=== PATIENT | male | born 1960 | race Caucasian/White ===

== ENCOUNTER 2017-03-17 18:14 | Emergency (ER) | payer BC ==
[2017-03-17 19:15] VITALS: RESP 16
[2017-03-17] MEDS: ASPIRIN 81 MG CHEW PO STA ×2 (19:19→19:23)
[2017-03-17 19:21] LABS: Basophils # (A) 0.1 k/uL (0-0.2); Basophils % (A) 1 %; CHCM 33.6; Eosinophils # (A) 0.2 k/uL (0-0.7); Eosinophils % (A) 2 %; HCT 47.9 % (39.0-53.0); HDW 2.25; HGB 15.6 gm/dL (13.0-17.5); Luc # (Auto) 0.35; Luc % (Auto) 4; Lymphocytes # (A) 4.2 k/uL (1.0-4.8); Lymphocytes % (A) 43 %; MCH 30.1 pg (25.0-35.0); MCHC 32.5 g/dL (31.0-37.0); MCV 92.7 fL (80.0-100.0); Mean Platelet Volume 7.8; Monocytes # (A) 0.6 k/uL (0-1.0); Monocytes % (A) 6 %; Neutrophils # (A) 4.3 k/uL (1.3-7.7); Neutrophils % (A) 45 %; RBC 5.17 m/uL (4.30-5.90); RDW 13.1 % (11.5-15.5); WBC 9.7 k/uL (3.8-10.6); WBC (Perox) 9.33
[2017-03-17 19:25] LABS: ALT 39 U/L (21-72); AST 29 U/L (17-59); Alkaline Phosphatase 94 U/L (38-126); Anion Gap 12 mmol/L; Blood Urea Nitrogen 23 mg/dL (9-20); Calcium 9.8 mg/dL (8.4-10.2); Carbon Dioxide 24 mmol/L (22-30); Chloride 99 mmol/L (98-107); Glucose 95 mg/dL (74-99); Magnesium 2.1 mg/dL (1.6-2.3); Non-African American GFR(MDRD) >60 (>60 ml/min/1.73 sqM); Potassium 4.6 mmol/L (3.5-5.1); Sodium 135 mmol/L (137-145); Total Bilirubin 1.4 mg/dL (0.2-1.3); Total Protein 7.8 g/dL (6.3-8.2)
--- NOTE | 2017-03-17 19:28 | ED ---
Arrhythmia/Palpitations HPI - General Chief Complaint: Arrhythmia/Palpitations Stated Complaint: irregular heartbeat Time Seen by Provider: 03/17/17 18:32 Source: patient Mode of arrival: ambulatory Limitations: no limitations - History of Present Illness Initial Comments: Patient is a 56-year-old man who states that he has history of cardiomyopathy, previous congestive heart failure, and previous SVT, who states that just before coming here he was doing yoga and noticed that his heart began racing. States that he measured the rate at up to 160 bpm. He states that he was not having any other symptoms associated with this. He denied dyspnea, diaphoresis , chest pain, nausea or vomiting, lightheadedness or syncope. The patient states that when he does have this happen the symptoms usually last less than a minute, and that when this episode persisted he came here to be evaluated. The patient takes his cardiology care through the [facility], Dr. Aaronson. CONWAY Complaint: rapid heart beat -: minutes(s) Context: occurred during exertion Arrhythmia History: SVT Associated Symptoms: denies other symptoms - Related Data Home Medications Medication Instructions Recorded Confirmed Carvedilol [Coreg] 25 mg PO BID 03/17/17 03/17/17 Enalapril Maleate [Vasotec] 10 mg PO BID 03/17/17 03/17/17 Multivitamins, Thera [Multivitamin 1 tab PO DAILY 03/17/17 03/17/17 (formulary)] Naproxen Sodium [Aleve] 440 mg PO ONCE PRN 03/17/17 03/17/17 Allergies Allergy/AdvReac Type Severity Reaction Status Date / Time No Known Allergies Allergy Verified 03/17/17 18:46 Review of Systems ROS Statement: Those systems with pertinent positive or pertinent negative responses have been documented in the HPI. ROS Other: All systems not noted in ROS Statement are negative. Constitutional: Denies: fever, chills, weakness Respiratory: Denies: cough, dyspnea Cardiovascular: Reports: palpitations. Denies: chest pain, dyspnea on exertion , orthopnea, edema, syncope Gastrointestinal: Denies: abdominal pain, vomiting, diarrhea Musculoskeletal: Denies: back pain Skin: Denies: rash Neurological: Denies: headache, weakness, numbness Hematological/Lymphatic: Denies: easy bleeding Past Medical History Past Medical History: Heart Failure, Hypertension Additional Past Medical History / Comment(s): arrhythmia History of Any Multi-Drug Resistant Organisms: None Reported Past Surgical History: No Surgical Hx Reported Past Psychological History: Anxiety Smoking Status: Never smoker Past Alcohol Use History: None Reported Past Drug Use History: None Reported General Exam Limitations: no limitations General appearance: alert, in no apparent distress Head exam: Present: atraumatic, normocephalic Eye exam: Present: normal appearance. Absent: scleral icterus, conjunctival injection ENT exam: Present: normal oropharynx Neck exam: Present: normal inspection, full ROM Respiratory exam: Present: normal lung sounds bilaterally. Absent: respiratory distress, wheezes, rales, rhonchi, stridor Cardiovascular Exam: Present: regular rate (The heart rate at my exam is proximal to 72 bpm), normal rhythm, normal heart sounds. Absent: systolic murmur, diastolic murmur, rubs, gallop GI/Abdominal exam: Present: soft. Absent: distended, tenderness, guarding, rebound, mass Extremities exam: Present: normal inspection, normal capillary refill. Absent: pedal edema, calf tenderness Back exam: Present: normal inspection. Absent: CVA tenderness (R), CVA tenderness (L) Neurological exam: Present: alert Skin exam: Present: warm, dry, intact, normal color. Absent: rash Course Vital Signs 03/17/17 03/17/17 03/17/17 18:20 18:22 18:24 Temperature 96.9 F L Pulse Rate 155 H 93 Pulse Rate [ 155 H Outpatient Coder ] Respiratory 18 Rate Blood Pressure 135/103 O2 Sat by Pulse 100 Oximetry 03/17/17 03/17/17 03/17/17 18:34 18:55 20:07 Temperature Pulse Rate 74 70 62 Pulse Rate [ Outpatient Coder ] Respiratory 18 16 16 Rate Blood Pressure 144/96 132/87 142/84 O2 Sat by Pulse 96 97 94 L Oximetry EKG Findings - EKG Comments: EKG Findings:: SVT with a rate of approximately 155 bpm there is a PVC present. - EKG Results: EKG: interpreted by LESLIE, normal axis, normal QRS EKG shows: tachycardia - Blocks, [place], Hypertrophy, ST Abn: Repolarization changes or abnormalities: nonspecific abnormality, ST segment, and/or T wave Medical Decision Making - Medical Decision Making Patient had a repeat EKG when his rhythm spontaneously reverted to what appear to be sinus. The second EKG does show sinus rhythm with occasional PVCs the rate is approximately 90 bpm. The intervals are within normal limits. [place] is normal. Nonspecific T wave abnormality. Patient reevaluated following lab studies. He is requesting to go home. He has not had any symptoms. We discussed the risk of further arrhythmia and the benefits of monitoring overnight. At this point he would like to go home and will return for admission should any symptoms develop or the palpitations recur. Patient is going to follow-up with his metallurgical analyst, calling for an appointment tomorrow. - Lab Data Result diagrams: 03/17/17 18:34 03/17/17 18:34 Lab Results 03/17/17 03/17/17 03/17/17 Range/Units 18:34 18:34 18:34 WBC 9.7 (3.8-10.6) k/uL RBC 5.17 (4.30-5.90) m/uL Hgb 15.6 (13.0-17.5) gm/dL Hct 47.9 (39.0-53.0) % MCV 92.7 (80.0-100.0) fL MCH 30.1 (25.0-35.0) pg MCHC 32.5 (31.0-37.0) g/dL RDW 13.1 (11.5-15.5) % Plt Count 188 (150-450) k/uL Neutrophils % 45 % Lymphocytes % 43 % Monocytes % 6 % Eosinophils % 2 % Basophils % 1 % Neutrophils # 4.3 (1.3-7.7) k/uL Lymphocytes # 4.2 (1.0-4.8) k/uL Monocytes # 0.6 (0-1.0) k/uL Eosinophils # 0.2 (0-0.7) k/uL Basophils # 0.1 (0-0.2) k/uL PT (9.0-12.0) sec INR (<1.1) APTT (22.0-30.0) sec D-Dimer (<0.60) mg/L FEU Sodium 135 L (137-145) mmol/L Potassium 4.6 (3.5-5.1) mmol/L Chloride 99 (98-107) mmol/L Carbon Dioxide 24 (22-30) mmol/L Anion Gap 12 mmol/L BUN 23 H (9-20) mg/dL Creatinine 1.16 (0.66-1.25) mg/dL Est GFR (MDRD) Af Amer >60 (>60 ml/min/1.73 sqM) Est GFR (MDRD) Non-Af >60 (>60 ml/min/1.73 sqM) Glucose 95 (74-99) mg/dL Calcium 9.8 (8.4-10.2) mg/dL Magnesium 2.1 (1.6-2.3) mg/dL Total Bilirubin 1.4 H (0.2-1.3) mg/dL AST 29 (17-59) U/L ALT 39 (21-72) U/L Alkaline Phosphatase 94 (38-126) U/L Total Creatine Kinase 151 (55-170) U/L CK-MB (CK-2) 3.6 H* (0.0-2.4) ng/mL CK-MB (CK-2) Rel Index 2.4 Troponin I 0.013 (0.000-0.034) ng/mL Total Protein 7.8 (6.3-8.2) g/dL Albumin 4.8 (3.5-5.0) g/dL TSH 3.940 (0.465-4.680) mIU/L 03/17/17 Range/Units 18:34 WBC (3.8-10.6) k/uL RBC (4.30-5.90) m/uL Hgb (13.0-17.5) gm/dL Hct (39.0-53.0) % MCV (80.0-100.0) fL MCH (25.0-35.0) pg MCHC (31.0-37.0) g/dL RDW (11.5-15.5) % Plt Count (150-450) k/uL Neutrophils % % Lymphocytes % % Monocytes % % Eosinophils % % Basophils % % Neutrophils # (1.3-7.7) k/uL Lymphocytes # (1.0-4.8) k/uL Monocytes # (0-1.0) k/uL Eosinophils # (0-0.7) k/uL Basophils # (0-0.2) k/uL PT 10.9 (9.0-12.0) sec INR 1.1 (<1.1) APTT 24.2 (22.0-30.0) sec D-Dimer 0.36 (<0.60) mg/L FEU Sodium (137-145) mmol/L Potassium (3.5-5.1) mmol/L Chloride (98-107) mmol/L Carbon Dioxide (22-30) mmol/L Anion Gap mmol/L BUN (9-20) mg/dL Creatinine (0.66-1.25) mg/dL Est GFR (MDRD) Af Amer (>60 ml/min/1.73 sqM) Est GFR (MDRD) Non-Af (>60 ml/min/1.73 sqM) Glucose (74-99) mg/dL Calcium (8.4-10.2) mg/dL Magnesium (1.6-2.3) mg/dL Total Bilirubin (0.2-1.3) mg/dL AST (17-59) U/L ALT (21-72) U/L Alkaline Phosphatase (38-126) U/L Total Creatine Kinase (55-170) U/L CK-MB (CK-2) (0.0-2.4) ng/mL CK-MB (CK-2) Rel Index Troponin I (0.000-0.034) ng/mL Total Protein (6.3-8.2) g/dL Albumin (3.5-5.0) g/dL TSH (0.465-4.680) mIU/L Disposition Clinical Impression: Supraventricular tachycardia Disposition: HOME SELF-CARE Condition: Good Instructions: Supraventricular Tachycardia (ED), Palpitations (ED) Referrals: Shubham Stephenson MD [Primary Care Provider] - 1-2 days
--- NOTE | 2017-03-17 19:45 | XR ---
EXAMINATION TYPE: XR chest 1V portable DATE OF EXAM: 03/17/2017 COMPARISON: 12/10/1711 HISTORY: Dysrhythmia TECHNIQUE: Single frontal view of the chest is obtained. FINDINGS: Heart appears enlarged. There is no heart failure. There are chest leads. Costophrenic ang les are clear. There are no hilar masses. IMPRESSION: Cardiomegaly. Heart appears slightly increased compared to old exam. No heart failure.
[2017-03-17 20:02] LABS: Troponin I 0.013 ng/mL (0.000-0.034)
[2017-03-17 20:06] LABS: Creatine Kinase MB 3.6 ng/mL (0.0-2.4); INR 1.1 (<1.1); Partial Thromboplastin Time 24.2 sec (22.0-30.0); Prothrombin Time 10.9 sec (9.0-12.0)
[2017-03-17 21:09] VITALS: BP 127/82; PULSE 66; TEMP 98.4
== END 2017-03-17 21:10 | disposition home or self-care (01) ==
LOC: EC 18:14
DX: I47.1 Supraventricular tachycardia (principal); I50.9 Heart failure, unspecified; I10 Essential (primary) hypertension; Z53.29 Procedure and treatment not carried out because of patient's decision for other reasons; Z79.899 Other long term (current) drug therapy
CPT/HCPCS: 36415; 71010; 80053; 82550; 82553; 83735; 84443; 84484; 85025; 85379; 85610; 85730; 93005; 99284

== ENCOUNTER 2018-07-05 09:35 | Emergency (ER) | payer BC ==
[2018-07-05 09:40] VITALS: TEMP 98.1
[2018-07-05] MEDS ORDERED: IPRATROPIUM-ALBUTEROL 3 ML NEB INHALATION STA ×2 (09:50→10:42)
--- NOTE | 2018-07-05 10:02 | ED ---
General Adult HPI - General Chief complaint: Upper Respiratory Infection Stated complaint: URI Time Seen by Provider: 07/05/18 09:35 Source: patient, RN notes reviewed Mode of arrival: ambulatory Limitations: no limitations - History of Present Illness Initial comments: This is a 57-year-old male who presents emergency Department complaining that he is been fighting a cough and wheezing for very wheezing times one week. Patient states she's been coughing up some sputum. Patient states he finds it difficult to completely exhale though he does not find himself short of breath. Patient denies any chest pain. Patient denies any palpitations. Patient denies any fever or chills. Patient states she's had this 3 times in the year and he is going to make an appointment with a metallurgical analyst because he thinks he may have some underlying ALLERGIES or asthma. Patient states he didn't do anything yesterday because he was feeling under the weather and then today he woke up after 10 hours of sleep and felt worse. Patient denies any headache patient denies any numbness weakness patient denies any lightheadedness. Patient denies abdominal pain patient denies any nausea or vomiting. - Related Data Home Medications Medication Instructions Recorded Confirmed Carvedilol [Coreg] 25 mg PO BID 03/17/17 03/17/17 Enalapril Maleate [Vasotec] 10 mg PO BID 03/17/17 03/17/17 Multivitamins, Thera [Multivitamin 1 tab PO DAILY 03/17/17 03/17/17 (formulary)] Naproxen Sodium [Aleve] 440 mg PO ONCE PRN 03/17/17 03/17/17 Previous Rx's Medication Instructions Recorded Albuterol Inhaler [Ventolin Hfa 1 - 2 puff INHALATION Q6HR PRN #2 07/05/18 Inhaler] puff Azithromycin [Zithromax Tri-Luiz] 500 mg PO DAILY #3 tab 07/05/18 predniSONE 40 mg PO DAILY #8 tab 07/05/18 Allergies Allergy/AdvReac Type Severity Reaction Status Date / Time No Known Allergies Allergy Verified 07/05/18 09:37 Review of Systems ROS Statement: Those systems with pertinent positive or pertinent negative responses have been documented in the HPI. ROS Other: All systems not noted in ROS Statement are negative. Past Medical History Past Medical History: Heart Failure, Hypertension Additional Past Medical History / Comment(s): arrhythmia History of Any Multi-Drug Resistant Organisms: None Reported Past Surgical History: No Surgical Hx Reported Past Psychological History: Anxiety Smoking Status: Never smoker Past Alcohol Use History: None Reported Past Drug Use History: None Reported General Exam - General Exam Comments Initial Comments: GENERAL: Patient is well-developed and well-nourished. Patient is nontoxic and well- hydrated and is in mild distress. ENT: Neck is soft and supple. No significant lymphadenopathy is noted. Oropharynx is clear. Moist mucous membranes. Neck has full range of motion without eliciting any pain. EYES: The sclera were anicteric and conjunctiva were pink and moist. Extraocular movements were intact and pupils were equal round and reactive to light. Eyelids were unremarkable. PULMONARY: Patient has slight expiratory wheeze throughout CARDIOVASCULAR: There is a regular rate and rhythm without any murmurs gallops or rubs. ABDOMEN: Soft and nontender with normal bowel sounds. SKIN: Skin is clear with no lesions or rashes and otherwise unremarkable. NEUROLOGIC: Patient is alert and oriented x3. Cranial nerves II through XII are grossly intact. Motor and sensory are also intact. Normal speech, volume and content. Symmetrical smile. MUSCULOSKELETAL: Normal extremities with adequate strength and full range of motion. No lower extremity swelling or edema. No calf tenderness. LYMPHATICS: No significant lymphadenopathy is noted PSYCHIATRIC: Normal psychiatric evaluation. Normal interpersonal interactions appears functionally intact in deals appropriately with others. Limitations: no limitations Course Vital Signs 07/05/18 07/05/18 07/05/18 09:37 09:54 10:10 Temperature 98.1 F Pulse Rate 80 74 Respiratory 18 20 Rate Blood Pressure 119/74 O2 Sat by Pulse 98 Oximetry 07/05/18 10:18 Temperature Pulse Rate 70 Respiratory Rate Blood Pressure O2 Sat by Pulse Oximetry Medical Decision Making - Medical Decision Making Chest x-ray shows no acute abnormality Patient had a breathing treatment and his wheezing had diminished considerably. Disposition Clinical Impression: Bronchitis with bronchospasm Disposition: HOME SELF-CARE Condition: Good Instructions: Acute Bronchitis (ED), Bronchospasm (ED) Prescriptions: Albuterol Inhaler [Ventolin Hfa Inhaler] 1 - 2 puff INHALATION Q6HR PRN #2 puff PRN Reason: Difficulty breathing Azithromycin [Zithromax Tri-Luiz] 500 mg PO DAILY #3 tab predniSONE 40 mg PO DAILY #8 tab Is patient prescribed a controlled substance at d/c from ED?: No Referrals: Shubham Stephenson MD [Primary Care Provider] - 1-2 days Time of Disposition: 10:38
--- NOTE | 2018-07-05 10:29 | XR ---
EXAMINATION TYPE: XR chest 2V DATE OF EXAM: 07/05/2018 HISTORY: Difficulty breathing . REFERENCE: Previous study dated 03/17/2017. FINDINGS: The heart is mildly enlarged. The lungs are clear. Pleural spaces are clear. IMPRESSION: MILD CARDIOMEGALY.
[2018-07-05] MEDS ORDERED: predniSONE 50 MG TAB PO STA (10:42)
[2018-07-05 11:18] VITALS: BP 103/66; PULSE 62; RESP 18
== END 2018-07-05 11:21 | disposition home or self-care (01) ==
LOC: EC 09:35
DX: J40 Bronchitis, not specified as acute or chronic (principal); I11.0 Hypertensive heart disease with heart failure; I50.9 Heart failure, unspecified; Z79.899 Other long term (current) drug therapy
CPT/HCPCS: 94640 ×2; 71046; 99285; J7512

== ENCOUNTER 2018-09-14 07:20 | Inpatient (IN) | payer BC ==
[2018-09-14] MEDS ORDERED: SODIUM CHLORIDE 0.9% 1,000 ML IV STA (07:29)
[2018-09-14] MEDS ORDERED: LORazepam 2 MG/ML INJ IV STA ×3 (07:29→07:51)
[2018-09-14 07:36] LABS: Glucose,Whole Blood 203 mg/dL (75-99)
--- NOTE | 2018-09-14 07:38 | ED ---
General Adult HPI - General Stated complaint: CPR Time Seen by Provider: 09/14/18 07:29 Source: family, EMS, old records reviewed Mode of arrival: EMS Limitations: altered mental status - History of Present Illness Initial comments: Patient is an altered 57-year-old male presenting to the emergency department following cardiac arrest. Patient is unresponsive and unable to provide any history. woke up to patient moaning and restless. EMS was called. When EMS arrived CPR was underway and the monitor advised a shock. Patient did receive a shock. EMS. The patient to the monitor and found patient in V. fib. Second shock was provided. Patient has been restless since that time. No history of similar symptoms previous. Patient does have history of long- standing cardiomyopathy and hypertension. states patient otherwise was doing fine last night. - Related Data Home Medications Medication Instructions Recorded Confirmed Carvedilol [Coreg] 25 mg PO BID 03/17/17 09/14/18 Enalapril Maleate [Vasotec] 10 mg PO BID 03/17/17 09/14/18 Allergies Allergy/AdvReac Type Severity Reaction Status Date / Time No Known Allergies Allergy Verified 09/14/18 09:02 Review of Systems ROS Statement: Those systems with pertinent positive or pertinent negative responses have been documented in the HPI. ROS Other: All systems not noted in ROS Statement are negative. Limitations: ROS unobtainable due to patients medical condition Past Medical History Past Medical History: Heart Failure, Hypertension Additional Past Medical History / Comment(s): arrhythmia History of Any Multi-Drug Resistant Organisms: None Reported Past Surgical History: No Surgical Hx Reported Past Psychological History: Anxiety Smoking Status: Never smoker Past Alcohol Use History: None Reported Past Drug Use History: None Reported General Exam Limitations: altered mental status (Patient is restless and nonresponsive.) General appearance: alert, other (Patient is unable to follow commands) Head exam: Present: atraumatic Eye exam: Present: normal appearance, PERRL ENT exam: Present: normal oropharynx Neck exam: Present: normal inspection. Absent: tenderness, meningismus Respiratory exam: Present: normal lung sounds bilaterally Cardiovascular Exam: Present: regular rate, normal rhythm Expanded Peripheral pulses: 2+: Radial (R), Radial (L), Dorsalis Pedis (R), Dorsalis Pedis (L) GI/Abdominal exam: Present: soft. Absent: tenderness Extremities exam: Present: normal inspection. Absent: pedal edema, calf tenderness Back exam: Present: normal inspection Neurological exam: Present: alert, altered, other (Limited exam. Patient does not follow commands. Patient moans and moves all extremities.) Psychiatric exam: Present: other (Nonverbal) Skin exam: Present: normal color. Absent: rash Course Vital Signs 09/14/18 09/14/18 09/14/18 07:23 07:30 07:40 Pulse Rate 89 90 89 Respiratory 24 18 18 Rate Blood Pressure 111/97 111/97 O2 Sat by Pulse 96 94 L Oximetry 09/14/18 09/14/18 09/14/18 07:50 08:00 08:10 Pulse Rate 85 80 Respiratory 18 18 Rate Blood Pressure 111/81 106/77 98/74 O2 Sat by Pulse 95 96 Oximetry 09/14/18 09/14/18 09/14/18 08:20 08:30 08:32 Pulse Rate 79 82 84 Respiratory 18 18 18 Rate Blood Pressure 99/54 99/72 107/69 O2 Sat by Pulse 98 95 96 Oximetry 09/14/18 09/14/18 09/14/18 08:45 09:00 09:15 Pulse Rate 74 80 74 Respiratory 18 18 18 Rate Blood Pressure 103/64 96/65 101/71 O2 Sat by Pulse 96 96 97 Oximetry 09/14/18 09:20 Pulse Rate 70 Respiratory 18 Rate Blood Pressure 125/75 O2 Sat by Pulse 97 Oximetry - Reevaluation(s) Reevaluation #1: 09/14/18 07:37 Dr. Mahajan with cardiology was made aware of case and did review EKG. 09/14/18 08:39 Patient reevaluated and significantly improved. Patient is awake, slightly drowsy and oriented to year and then. Patient is not oriented to place. Patient does have some mild slurred speech as expected with large dose of Ativan. Patient has received 8 of Ativan. Patient is slightly drowsy. No facial weakness. No extremity weakness. 09/14/18 08:54 Case was again discussed with Dr. Mahajan. He does request echo and amiodarone 150 mg bolus followed by drip. He will take patient for heart catheterization in the near future. Dr. Chung has been paged. 09/14/18 09:22 Case was discussed in detail with Dr. Berrios, who will admit, covering for Dr. Stephenson 09/14/18 09:17 Dr. Timmons has been paged. EKG Findings - EKG Comments: EKG Findings:: Sinus rhythm at 89. PVC is present. NJ 148. QRS 112. QT 370. QTc 450. Normal axis. Septal Q waves. Nonspecific T waves. Medical Decision Making - Lab Data Result diagrams: 09/14/18 07:39 09/14/18 07:39 Lab Results 09/14/18 09/14/18 09/14/18 Range/Units 07:34 07:39 07:39 WBC 9.3 (3.8-10.6) k/uL RBC 4.73 (4.30-5.90) m/uL Hgb 14.1 (13.0-17.5) gm/dL Hct 42.6 (39.0-53.0) % MCV 90.0 (80.0-100.0) fL MCH 29.8 (25.0-35.0) pg MCHC 33.0 (31.0-37.0) g/dL RDW 13.4 (11.5-15.5) % Plt Count 186 (150-450) k/uL Neutrophils % (Manual) 27 % Band Neutrophils % 1 % Lymphocytes % (Manual) 67 % Monocytes % (Manual) 4 % Eosinophils % (Manual) 1 % Neutrophils # (Manual) 2.60 (1.3-7.7) k/uL Lymphocytes # (Manual) 6.23 H (1.0-4.8) k/uL Monocytes # (Manual) 0.37 (0-1.0) k/uL Eosinophils # (Manual) 0.09 (0-0.7) k/uL Nucleated RBCs 0 (0-0) /100 WBC Manual Slide Review Performed Poikilocytosis (manual Present PT (9.0-12.0) sec INR (<1.2) APTT (22.0-30.0) sec Sodium (137-145) mmol/L Potassium (3.5-5.1) mmol/L Chloride (98-107) mmol/L Carbon Dioxide (22-30) mmol/L Anion Gap mmol/L BUN (9-20) mg/dL Creatinine (0.66-1.25) mg/dL Est GFR (CKD-EPI)AfAm (>60 ml/min/1.73 sqM) Est GFR (CKD-EPI)NonAf (>60 ml/min/1.73 sqM) Glucose (74-99) mg/dL POC Glucose (mg/dL) 203 H (75-99) mg/dL POC Glu Power Barker Operator ID Seema Garcia Calcium (8.4-10.2) mg/dL Magnesium (1.6-2.3) mg/dL Total Bilirubin (0.2-1.3) mg/dL AST (17-59) U/L ALT (21-72) U/L Alkaline Phosphatase (38-126) U/L Total Creatine Kinase 115 (55-170) U/L CK-MB (CK-2) 2.2 (0.0-2.4) ng/mL CK-MB (CK-2) Rel Index 1.9 Troponin I <0.012 (0.000-0.034) ng/mL Total Protein (6.3-8.2) g/dL Albumin (3.5-5.0) g/dL TSH (0.465-4.680) mIU/L Free T4 (0.78-2.19) ng/dL Urine Color Urine Appearance (Clear) Urine pH (5.0-8.0) Ur Specific [place] (1.001-1.035) Urine Protein (Negative) Urine Glucose (UA) (Negative) Urine Ketones (Negative) Urine Blood (Negative) Urine Nitrite (Negative) Urine Bilirubin (Negative) Urine Urobilinogen (<2.0) mg/dL Ur Leukocyte Esterase (Negative) Urine RBC (0-5) /hpf Urine WBC (0-5) /hpf Amorphous Sediment (None) /hpf Urine Opiates Screen (NotDetected) Ur Oxycodone Screen (NotDetected) Urine Methadone Screen (NotDetected) Ur Propoxyphene Screen (NotDetected) Ur Barbiturates Screen (NotDetected) U Tricyclic Antidepress (NotDetected) Ur Phencyclidine Scrn (NotDetected) Ur Amphetamines Screen (NotDetected) U Methamphetamines Scrn (NotDetected) U Benzodiazepines Scrn (NotDetected) Urine Cocaine Screen (NotDetected) U Marijuana (THC) Screen (NotDetected) 09/14/18 09/14/18 09/14/18 Range/Units 07:39 07:39 08:20 WBC (3.8-10.6) k/uL RBC (4.30-5.90) m/uL Hgb (13.0-17.5) gm/dL Hct (39.0-53.0) % MCV (80.0-100.0) fL MCH (25.0-35.0) pg MCHC (31.0-37.0) g/dL RDW (11.5-15.5) % Plt Count (150-450) k/uL Neutrophils % (Manual) % Band Neutrophils % % Lymphocytes % (Manual) % Monocytes % (Manual) % Eosinophils % (Manual) % Neutrophils # (Manual) (1.3-7.7) k/uL Lymphocytes # (Manual) (1.0-4.8) k/uL Monocytes # (Manual) (0-1.0) k/uL Eosinophils # (Manual) (0-0.7) k/uL Nucleated RBCs (0-0) /100 WBC Manual Slide Review Poikilocytosis (manual PT 11.0 (9.0-12.0) sec INR 1.0 (<1.2) APTT 23.1 (22.0-30.0) sec Sodium 136 L (137-145) mmol/L Potassium 4.4 (3.5-5.1) mmol/L Chloride 103 (98-107) mmol/L Carbon Dioxide 26 (22-30) mmol/L Anion Gap 7 mmol/L BUN 20 (9-20) mg/dL Creatinine 1.26 H (0.66-1.25) mg/dL Est GFR (CKD-EPI)AfAm 72 (>60 ml/min/1.73 sqM) Est GFR (CKD-EPI)NonAf 62 (>60 ml/min/1.73 sqM) Glucose 231 H (74-99) mg/dL POC Glucose (mg/dL) (75-99) mg/dL POC Glu Power Barker Operator ID Calcium 9.1 (8.4-10.2) mg/dL Magnesium 2.2 (1.6-2.3) mg/dL Total Bilirubin 1.5 H (0.2-1.3) mg/dL AST 158 H (17-59) U/L ALT 142 H (21-72) U/L Alkaline Phosphatase 61 (38-126) U/L Total Creatine Kinase (55-170) U/L CK-MB (CK-2) (0.0-2.4) ng/mL CK-MB (CK-2) Rel Index Troponin I (0.000-0.034) ng/mL Total Protein 6.4 (6.3-8.2) g/dL Albumin 3.8 (3.5-5.0) g/dL TSH 6.250 H (0.465-4.680) mIU/L Free T4 1.07 (0.78-2.19) ng/dL Urine Color Light Yellow Urine Appearance Clear (Clear) Urine pH 6.5 (5.0-8.0) Ur Specific [place] 1.007 (1.001-1.035) Urine Protein Negative (Negative) Urine Glucose (UA) Negative (Negative) Urine Ketones Negative (Negative) Urine Blood Moderate H (Negative) Urine Nitrite Negative (Negative) Urine Bilirubin Negative (Negative) Urine Urobilinogen <2.0 (<2.0) mg/dL Ur Leukocyte Esterase Negative (Negative) Urine RBC 12 H (0-5) /hpf Urine WBC 11 H (0-5) /hpf Amorphous Sediment Occasional H (None) /hpf Urine Opiates Screen Not Detected (NotDetected) Ur Oxycodone Screen Not Detected (NotDetected) Urine Methadone Screen Not Detected (NotDetected) Ur Propoxyphene Screen Not Detected (NotDetected) Ur Barbiturates Screen Not Detected (NotDetected) U Tricyclic Antidepress Not Detected (NotDetected) Ur Phencyclidine Scrn Not Detected (NotDetected) Ur Amphetamines Screen Not Detected (NotDetected) U Methamphetamines Scrn Not Detected (NotDetected) U Benzodiazepines Scrn Not Detected (NotDetected) Urine Cocaine Screen Not Detected (NotDetected) U Marijuana (THC) Screen Not Detected (NotDetected) - Radiology Data Radiology results: report reviewed (Reported by radiologist: Atrophy. No acute hemorrhage or shift.), image reviewed (Chest x-ray shows cardiomegaly and interstitial prominence consistent with CHF.) Critical Care Time Critical Care Time: Yes Total Critical Care Time: 33 Disposition Clinical Impression: Cardiac arrest, Ventricular fibrillation Disposition: ADMITTED IP TO THIS HOSP Condition: Serious Is patient prescribed a controlled substance at d/c from ED?: No Referrals: Shubham Stephenson MD [Primary Care Provider] - 1-2 days Decision Time: 09:12
--- NOTE | 2018-09-14 07:51 | XR ---
EXAMINATION TYPE: XR chest 1V portable DATE OF EXAM: 09/14/2018 COMPARISON: Prior chest x-ray 07/05/2018 HISTORY: Altered mental status, dysrhythmia TECHNIQUE: Single frontal view of the chest is obtained. FINDINGS: Heart is enlarged. Perihilar airspace disease is noted, the interstitium is increased. No evident pneumothorax or sizable effusion. Overlying defibrillator pad, cardiac leads noted. IMPRESSION: Findings compatible with congestive heart failure.
[2018-09-14] MEDS ORDERED: FUROSEMIDE 10 MG/ML 4 ML VIAL IV STA (08:04)
[2018-09-14 08:15] LABS: HCT 42.6 % (39.0-53.0); HGB 14.1 gm/dL (13.0-17.5); MCH 29.8 pg (25.0-35.0); Platelet Count 186 k/uL (150-450); RBC 4.73 m/uL (4.30-5.90); RDW 13.4 % (11.5-15.5); WBC 9.3 k/uL (3.8-10.6)
[2018-09-14 08:21] LABS: Partial Thromboplastin Time 23.1 sec (22.0-30.0)
[2018-09-14 08:23] LABS: Albumin 3.8 g/dL (3.5-5.0); Calcium 9.1 mg/dL (8.4-10.2); Creatine Kinase 115 U/L (55-170); Magnesium 2.2 mg/dL (1.6-2.3); Potassium 4.4 mmol/L (3.5-5.1); Total Bilirubin 1.5 mg/dL (0.2-1.3); Total Protein 6.4 g/dL (6.3-8.2)
--- NOTE | 2018-09-14 08:25 | CONS ---
CONSULTATION This is a gentleman who was brought in with a cardiac arrest. Apparently he has a history of nonischemic cardiomyopathy, sees Dr. Adame here in [place] and also Dr. Viktor Pelletier at [facility]. He takes Coreg and enalapril. He was a reasonably active person, but his found him grunting a little before before 7:00, called 911 and apparently he was seen by the EMS and there was evidence of ventricular fibrillation. He was shocked twice and brought in here. He is awake. He is protecting his airway, but is completely restless, unable to give any meaningful history. His oxygen saturation is good. Clinical picture raises the possibility of an acute CVA because of extreme restlessness. It is unclear if there was any chest pain or not associated with this, but EKG that was performed today revealed sinus mechanism with isolated PVCs and evidence of poor R-wave progression with mild IVCD. I compared this with an old EKG from February 2017, there was virtually no change. Patient is quite restless. I cannot obtain any history from him. His provided some of the information. Blood pressure was 112/80, pulse rate is about 89 per minute. S1, S2 heard normally. No significant murmur audible. Fine rales noted on both lung bases. Abdomen is soft. Central nervous system exam was not performed. The patient is going for a CAT scan of the head. IMPRESSION: 1. Cardiac arrest with ventricular fibrillation and status post shock twice. 2. History of nonischemic cardiomyopathy per patient's . 3. Ventricular Fibrillation S/P DC shock with resuscitation. PROB Primary VFIB with underlying cardiomyopathy. Will need ICD. 4. Rule out acute cerebrovascular accident, because patient is quite restless. 5. Exacerbation of congestive heart failure with chest x-ray suggestive of congestive heart failure. RECOMMENDATION: I am recommending that we obtain a CT scan which patient is going for now of the head, also stabilize him, get electrolytes and then based on this I will make further recommendations. Clinical picture does not suggest any acute myocardial infarction. Ventricular fibrillation can also occur with underlying cardiomyopathy. However , we will first stabilize him. Obtain electrolytes. Treat his congestive heart failure and then consider coronary angiography. EKG does not suggest acute myocardial ischemia. Discussed with the emergency room physician, the patient's and sister-in- law. Will initiate Amiodarone bolus and drip. Adden : D/W patient and after CT scan of Head when he was more relaxed and communicative. No abn on CT, lytes and Mg OK. Will proceed with Cath, all details, rationale and risks,benefits etc discussed with Pt and family. Will need ICD later, expl. to pt and family.They understand and wish to proceed. MMKYEL / IJN: [id number] / MTDErick
[2018-09-14 08:34] LABS: Creatine Kinase MB 2.2 ng/mL (0.0-2.4); Troponin I <0.012 ng/mL (0.000-0.034)
[2018-09-14 08:38] LABS: T4, Free (Free Thyroxine) 1.07 ng/dL (0.78-2.19)
[2018-09-14 08:43] LABS: Band Neutrophils % 1 %; Eosinophils # (M) 0.09 k/uL (0-0.7); Lymphocytes # (M) 6.23 k/uL (1.0-4.8); Monocytes # (M) 0.37 k/uL (0-1.0); Neutrophils % (M) 27 %; Nucleated Red Blood Cells 0 /100 WBC (0-0); Total Cells Counted 100
[2018-09-14 08:44] LABS: Poikilocytosis (M) Present
[2018-09-14 08:52] LABS: Amorphous Sediment,Urine Occasional /hpf; Appearance,Urine Clear (Clear); Bilirubin,Urine Negative (Negative); Blood,Urine Moderate (Negative); Color,Urine Light Yellow; Glucose,Urine (UA) Negative (Negative); Ketones,Urine Negative (Negative); Leukocyte Esterase,Urine Negative (Negative); Nitrite,Urine Negative (Negative); PH, Urine 6.5 (5.0-8.0); Protein,Urine Negative (Negative); RBC,Urine 12 /hpf (0-5); Specific Gravity,Urine 1.007 (1.001-1.035); Urobilinogen,Urine <2.0 mg/dL (<2.0); WBC,Urine 11 /hpf (0-5)
[2018-09-14] MEDS ORDERED: NALOXONE 0.4 MG/ML 1 ML VIAL IV PRN (09:12)
--- NOTE | 2018-09-14 09:18 | CT ---
EXAMINATION TYPE: CT brain wo con DATE OF EXAM: 09/14/2018 HISTORY: Altered mental status CT DLP: 1101 mGycm. Automated Exposure Control for Dose Reduction was Utilized. TECHNIQUE: CT scan of the head is performed without contrast. COMPARISON: None. FINDINGS: There is no acute intracranial hemorrhage or midline shift identified. There is diffuse v entricular and sulcal prominence consistent with diffuse age-related cerebral atrophy. Fowler-white mat ter differentiation is fairly well preserved. The globes are intact and the visualized sinuses are c lear. IMPRESSION: No acute intracranial hemorrhage or midline shift. There is mild to moderate diffuse ag e-related cerebral atrophy noted.
[2018-09-14 09:19] LABS: Amphetamine Screen,Urine Not Detected (NotDetected); Barbiturate Screen,Urine Not Detected (NotDetected); Benzodiazepines Screen,Urine Not Detected (NotDetected); Cocaine Screen,Urine Not Detected (NotDetected); Methadone Screen, Urine Not Detected (NotDetected); Opiate Screen,Urine Not Detected (NotDetected); Oxycodone Screen, Urine Not Detected (NotDetected); Phencyclidine Screen,Urine Not Detected (NotDetected); Tricyclic Antidepressant,Urine Not Detected (NotDetected); Urn Cannabinoid Scrn Not Detected (NotDetected)
[2018-09-14] MEDS: SODIUM CHLORIDE 0.9% 1,000 ML IV SCH (09:19)
[2018-09-14] MEDS ORDERED: AMIODARONE 450 MG in DEXTROSE 5% IN WATER 250 ML IV ONE ×2 (09:30)
[2018-09-14] MEDS ORDERED: DEXTROSE 5% IN WATER 100 ML with AMIODARONE 150 MG IV ONE (09:30)
[2018-09-14 10:53] LABS: Glucose,Whole Blood 142 mg/dL (75-99)
--- NOTE | 2018-09-14 11:22 | HP ---
HISTORY AND PHYSICAL CHIEF COMPLAINT: Unresponsiveness. HISTORY OF PRESENT ILLNESS: This 57-year-old gentleman is admitted to the hospital after being brought in the emergency room by EMS. The patient was in his bed struggling and restless. The patient's could not arouse him. EMS was called. The EMS started patient on CPR and noted that the patient was in V fib and the patient was defibrillated. The patient came back into sinus rhythm and then was back into A fib requiring a second electrical shock. The patient has recovered with rhythm remaining sinus. Blood pressure in the 90s, respirations 8. The patient is not intubated. He responded pretty well, just the patient became extremely agitated and was brought in the emergency room in view of that. The patient was not intubated. The patient was brought in the emergency room. He was markedly agitated, in the ER was given him Ativan. The patient was seen by Cardiology in the emergency room. EKG did not reveal any acute changes, but expect to do a cardiac catheterization. The patient at the time of my evaluation, is easily arousable, however, he keeps on repeating question asking where he is and when he is told where he is he is wondering how he came here and keeps asking the events. He does recognize his spouse and family. The patient is moving all his extremities well. His speech is clear. The patient did have a CAT scan of the brain which was negative apparently. The patient's past history is significant for cardiomyopathy. Talking to the technology manager he said that MRI had shown an ejection fraction of 38%. The patient has never had a ventricular fibrillation before. He does follow with a technology manager here as well as at the [facility]. He has had no history of any coronary events and he has been labeled as a nonischemic dilated cardiomyopathy. PAST MEDICAL HISTORY: Past medical history also significant for hypertension since age of 11. He also has a history of impaired fasting blood sugars with no overt diabetes mellitus. No history of any lung disease, liver disease, kidney disease, ulcers, TB, hepatitis. No history of any rheumatic fever, myocardial infarction, CVA. No history of any alcoholism. No history of any myopathy. PAST SURGICAL HISTORY: Past surgical history is significant for appendectomy and a knee scope. PERSONAL HISTORY: Nonsmoker. Alcohol none. ALLERGIES: None known. MEDICATIONS: Medications include: 1. Enalapril 10 mg b.i.d. 2. Coreg 25 mg b.i.d. 3. Unknown if patient takes aspirin or not. SOCIAL HISTORY: The patient is , lives with his spouse. FAMILY MEDICAL HISTORY: Patient's father in his late 30s. He had history of bone cancer. Mother living age 82 history of COPD. Patient has 4 brothers and 3 of them have a history of cardiomyopathy, the brother is in good health. He has one sister in good health. One son and daughter in good health. REVIEW OF SYSTEMS: Not obtainable much from the patient. NEURO: Denies any headaches, dizziness. PSYCH: Cooperative, was fairly agitated when he was brought in. CARDIAC: Denies chest pain, palpitations. RESPIRATORY: Denies shortness of breath, cough. GI: No reported nausea, vomiting. Some soreness of the abdominal area. No reported diarrhea, constipation, : No reported symptoms of dysuria or hematuria. Has an IDC. EXTREMITIES: No reported pain, edema. CONSTITUTIONAL: No fever or chills. PHYSICAL EXAMINATION: Pleasant gentleman who appears younger than stated age, at present in no distress. Vital signs reveals blood pressure 109/70, respirations 18, pulse 74, pulse ox 98%. HEENT: Normocephalic. Neck is supple. Pupils are mildly dilated, but reactive. Nostrils are clear. Oral cavity is dry. Ears reveal no drainage. Neck reveals no JVD. No carotid bruits. No thyromegaly. Chest is clear to auscultation. CARDIAC: Normal S1, S2 with no gallops, murmurs appreciated. Occasional extrasystole. ABDOMEN: Mildly tender. No rebound tenderness. Bowel sounds active in all 4 quadrants. Extremities reveal no edema. Good pulses both upper extremities. Mild decreased pedal pulses. Neurologically, arousable. Moves both upper and lower extremities adequately. The patient's cranial nerves appear intact. Speech is clear. The patient however has repeated questioning the same question about where he is and how he got here. LABORATORY ASSESSMENT: Blood sugar elevated of 231. Thyroid TSH 6.25. Sodium 136. Electrolytes otherwise normal. Creatinine borderline 1.26. AST at 158, ALT of 142. EKG poor R-wave progression in V1 and V2, though there is a small R-wave in both the leads. Sinus rhythm with occasional PVCs. No acute changes of TN. Troponins were negative. ASSESSMENT: 1. Ventricular fibrillation. 2. Cardiac arrest. 3. History of nonischemic dilated cardiomyopathy. 4. History of hypertension. 5. History of impaired fasting blood sugars. 6. Elevated LFT. PLAN: The patient is admitted to the hospital. Cardiology has seen the patient. They plan to do a cardiac cath. The patient has been started on amiodarone. We will follow patient's hepatic function and electrolytes. The patient's prognosis at present remains guarded. I believe patient's mentation will improve. Suspect the patient's functional status to improve. Patient's status discussed with the patient's daughter and family members. MMODL / IJN: [id number] /
[2018-09-14] MEDS ORDERED: VERAPAMIL 2.5 MG/ML 2 ML AMP ONE (11:33)
[2018-09-14] MEDS ORDERED: LIDOCAINE 1% INJ 10MG/ML (20 ML MDV) ONE (11:33)
[2018-09-14] MEDS ORDERED: HEPARIN SODIUM 1,000 UN/ML (10ML VL) ONE (11:34)
[2018-09-14] MEDS ORDERED: ASPIRIN 325 MG TAB ONE (11:38)
[2018-09-14] MEDS ORDERED: FLUID CONTINUATION IV ONE ×2 (11:50)
[2018-09-14] MEDS ORDERED: AMIODARONE IV ONE ×2 (11:50)
[2018-09-14] MEDS ORDERED: IV FLUID CONTINUATION 400 ML IV ONE (11:50)
[2018-09-14] MEDS ORDERED: ASPIRIN 325 MG TAB PO ONE (11:56)
[2018-09-14] MEDS ORDERED: LIDOCAINE 1% INJ 10MG/ML (20 ML MDV) SQ ONE (12:07)
[2018-09-14] MEDS: VERAPAMIL SYRINGE (5 MG/10 ML) INTRAARTER ONE ×2 (12:11→12:25)
[2018-09-14] MEDS ORDERED: HEPARIN SODIUM 1,000 UN/ML (10ML VL) IV ONE (12:14)
[2018-09-14] MEDS ORDERED: IOPAMIDOL-370 100ML BTL INJ ONE (12:25)
[2018-09-14] MEDS ORDERED: RX INFO: IV CONTRAST WAS GIVEN 1 EACH MISC MISCELLANE PRN (12:44)
[2018-09-14] MEDS ORDERED: SODIUM CHLORIDE 0.9% 1,000 ML IV SCH (12:45)
[2018-09-14 13:44] LABS: Glucose,Whole Blood 115 mg/dL (75-99)
[2018-09-14] MEDS: INSULIN ASPART 100 UNIT/ML 1 ML 10 ML VIAL SQ SCH ×3 (13:49→22:01)
[2018-09-14] MEDS: FUROSEMIDE 10 MG/ML 2 ML VIAL IV SCH ×2 (13:50→21:31)
[2018-09-14] MEDS: SPIRONOLACTONE 25 MG TAB PO SCH (13:52)
[2018-09-14] MEDS: POTASSIUM CHLORIDE ER 10 MEQ TAB.ER.PRT PO SCH (13:52)
[2018-09-14] MEDS: METOPROLOL TARTRATE 50 MG TAB PO SCH ×2 (13:54→22:36)
[2018-09-14] MEDS: HEPARIN SODIUM,PORCINE 5,000 UNIT/ML 1 ML VIAL SQ SCH (13:54)
--- NOTE | 2018-09-14 15:04 | ECHOF ---
Referral Reason:v fib MEASUREMENTS -------- HEIGHT: 180.3 cm WEIGHT: 93.0 kg BP: 101/66 RVIDd: 2.2 cm (< 3.3) IVSd: 1.2 cm (0.6 - 1.1) LVIDd: 5.1 cm (3.9 - 5.3) LVPWd: 1.2 cm (0.6 - 1.1) IVSs: 1.4 cm LVIDs: 4.7 cm LVPWs: 1.3 cm LAESV Index (A-L): 46.13 ml/m Ao Diam: 3.2 cm (2.0 - 3.7) AV Cusp: 1.8 cm (1.5 - 2.6) LA Diam: 3.2 cm (2.7 - 3.8) EPSS: 1.3 cm MV E Ciaran: 1.05 m/s MV DecT: 197 ms MV A Ciaran: 0.63 m/s MV E/A Ratio: 1.67 RAP: 5.00 mmHg RVSP: 8.52 mmHg MV EF SLOPE: 159.78 mm/s (70 - 150) MV EXCURSION: 2.59 cm (> 18.000) FINDINGS -------- Sinus rhythm. This was a technically adequate study. The left ventricular size is normal. There is mild concentric left ventricular hypertrophy. There is severe global hypokinesis of LV . Overall left ventricular systolic function is severely impair ed with, an EF between 20 - 25 %. The right ventricle is normal in size and function. , and the LA measures 3.2cm. LA is severely dilated >40 ml/m2 The right atrium is normal in size. Aortic valve is trileaflet and is mildly thickened. There is no evidence of aortic regurgitation. There is no evidence of aortic stenosis. The mitral valve leaflets are mildly thickened. Moderate mitral regurgitation is present. Trace tricuspid regurgitation present. Right ventricular systolic pressure is normal at < 35 mmHg. There is no evidence of pulmonary hypertension. The pulmonic valve was not well visualized. The aortic root size is normal. Normal inferior vena cava with normal inspiratory collapse consistent with estimated right atrial pre ssure of 5 mmHg. There is a small pericardial effusion located near the left ventricle. CONCLUSIONS -------- 1. Sinus rhythm. 2. This was a technically adequate study. 3. The left ventricular size is normal. 4. There is mild concentric left ventricular hypertrophy. 5. There is severe global hypokinesis of LV . 6. LA is severely dilated >40 ml/m2 7. Aortic valve is trileaflet and is mildly thickened. 8. The mitral valve leaflets are mildly thickened. 9. Moderate mitral regurgitation is present. 10. Trace tricuspid regurgitation present. 11. Right ventricular systolic pressure is normal at < 35 mmHg. 12. There is no evidence of pulmonary hypertension. 13. The pulmonic valve was not well visualized. 14. The aortic root size is normal. 15. There is a small pericardial effusion located near the left ventricle. SCRAP DROP OPERATOR: Jono Ceja RDCS
[2018-09-14 16:55] LABS: Glucose,Whole Blood 122 mg/dL (75-99)
[2018-09-14] MEDS ORDERED: AMIODARONE 450 MG in DEXTROSE 5% IN WATER 250 ML IV SCH ×2 (19:15)
[2018-09-14 19:34] LABS: Anion Gap 10 mmol/L; Blood Urea Nitrogen 20 mg/dL (9-20); Calcium 9.1 mg/dL (8.4-10.2); Carbon Dioxide 24 mmol/L (22-30); Chloride 100 mmol/L (98-107); Glucose 146 mg/dL (74-99); Potassium 4.6 mmol/L (3.5-5.1); Sodium 134 mmol/L (137-145)
[2018-09-14 20:29] LABS: Hemoglobin A1C 5.9 % (4.0-6.0)
[2018-09-14] MEDS ORDERED: METOPROLOL TARTRATE 50 MG TAB PO SCH (21:00)
[2018-09-14] MEDS ORDERED: FUROSEMIDE 10 MG/ML 2 ML VIAL IV SCH (21:00)
[2018-09-14 21:41] LABS: Glucose,Whole Blood 112 mg/dL (75-99)
--- NOTE | 2018-09-14 21:46 | CC ---
CARDIAC CATHETERIZATION REPORT DATE OF SERVICE: 09/14/2018. PROCEDURE: Left heart catheterization and coronary angiography. PERFORMED BY: Dr. Marry Mahajan. SEDATION: Moderate conscious sedation time was 23 minutes. Patient was monitored closely for his oxygen saturation, hemodynamics and EKG. Patient was already a little sleepy to begin with but remains stable. CLINICAL INFORMATION: Mr. Joseph Davis is a 57-year-old gentleman with a known diagnosis of nonischemic cardiomyopathy who came into the hospital with a cardiac arrest. He was shocked for ventricular fibrillation that was documented. He was on the Enalapril and Coreg. After resuscitation, he stabilized. Electrolytes and magnesium levels are normal. Echo revealed ejection fraction of less than 30%, global decrease in contractility. He was advised coronary angiography to rule out any acute ischemic event, which seemed unlikely given the normal EKG. PROCEDURE NOTE: Under local anesthesia and strict aseptic precautions, a 6-[place]izen [place] introducer was placed in the right radial artery. Using Ultimata 1 catheter I performed selective coronary angiography and a pigtail catheter was used to check LV pressures. LV gram was not performed. The sheath was taken out and TR band applied as per protocol. Saturation in the fingers of the right hand was 99%. He was sent to the room in a stable condition and findings were discussed with the patient and family. CARDIAC CATHETERIZATION FINDINGS: The left ventricle end-diastolic pressure was 28 mmHg and there was no gradient across aortic valve. CORONARY ANGIOGRAPHY FINDINGS: RIGHT CORONARY ARTERY: Technically a dominant vessel, has no significant disease distally bifurcates into a larger PDA, a smaller PLV, minor irregularities. No significant disease. LEFT MAIN CORONARY ARTERY: This actually does not exist and it appears that there are 2 separate ostia for LAD and circumflex [id number]. LEFT ANTERIOR DESCENDING CORONARY ARTERY: Good caliber vessel extends along the anterior wall gives off septal and diagonal branches runs all the way to the apex supplies a sizable amount of myocardium. No significant disease noted. LEFT POSTERIOR CIRCUMFLEX CORONARY ARTERY: Technically nondominant vessel gives off 2 obtuse marginals laterally and then runs in the AV groove. Has minor irregularities. No significant disease. LEFT VENTRICULOGRAM: This was not performed. FINAL IMPRESSION: This patient has no significant obstructive coronary artery disease. Filling pressures are elevated. LV gram was not performed. RECOMMENDATIONS: I am recommending that we will optimize medical therapy. I will place him on Aldactone, amiodarone 400 mg b.i.d. after the IV drip is completed, Lopressor 50 mg b.i.d., Lasix 20 mg q.12 hours and potassium 10 mEq daily. The patient will need ICD. I discussed the findings and the need for ICD with the patient and family members. He was sent to the ICU in a stable condition. JACOBO / FEDE: [id number] /
--- NOTE | 2018-09-14 22:08 | CONS ---
CONSULTATION This is a 57-year-old gentleman with a history of cardiomyopathy. He has had cardiomyopathy for over 14 years. He is seen here by Dr. Adame and he also sees Dr. Donte clay at [facility]. The etiology of his cardiomyopathy is not clear. He tells me that it is familial. Anyway, he is maintained on Coreg and enalapril and he has been on those same medications for a prolonged period of time and has done pretty well. He does have cardiomegaly. Anyway, the patient apparently was fine yesterday, went to bed last night and according to his , developed shortness of breath. The patient was brought in to the emergency room. He apparently was unresponsive. He apparently was found to have ventricular fibrillation. The patient was apparently provided CPR by EMS. The patient received at least 1 or 2 defibrillations or cardioversions for his ventricular fibrillation. The patient was restless after that. Dr. [place] ended up giving him quite a bit of Ativan to sort of settle him down. The patient's chest x-ray shows what appears to be CHF. The patient had a CT scan of the brain that was unremarkable. The patient went to the catheterization laboratory and was found to have clean coronary arteries. The patient is doing okay now. Of note was the fact that the get a TSH on the patient that was elevated, suggesting that he is hypothyroid. This is would be a new finding for him. In addition, his states he snores very loudly at nighttime and he may have sleep apnea syndrome. This will definitely have to be checked out in the future. Other than that, his only other medical history is that of hypertension. His medications as mentioned, include Coreg and Vasotec. Allergies are denied. Medical history includes a cardiomyopathy and hypertension. SURGICAL HISTORY: Unremarkable. SOCIAL HISTORY: Negative for tobacco, alcohol, or illicit drug use. FAMILY HISTORY: Unremarkable. 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 REVIEW OF SYSTEMS: CONSTITUTIONAL: Negative. NEUROLOGIC: Negative. HEENT: Negative. CARDIOVASCULAR: Ventricular fibrillation, cardiomyopathy, shortness of breath. PULMONARY: Shortness of breath/CHF. GI/: Negative. RHEUMATOLOGIC/IMMUNOLOGIC: Negative. ENDOCRINOLOGIC/DERMATOLOGIC: Negative. Current vital signs are reviewed. Temperature is 98.3, heart rate 71, respiratory rate 15, blood pressure 99/70, mean 79. Saturation on a couple liters is 98%. He appears in no acute distress. Seems to be relatively comfortable at this time. HEENT examination is grossly unremarkable. Nasal O2 in place. Neck supple. Full range of motion. No adenopathy. Cardiovascular examination reveals regular rhythm and rate. S1, S2 normal. No murmur. I do not hear any extra systoles or premature beats. Lungs reveal some bibasilar crackles. Breath sounds equal. No wheezes or rhonchi. Abdomen soft. Bowel sounds are heard. Extremities are intact. No cyanosis, clubbing, or edema. Skin without rash. Neurologic examination is brief but nonfocal. Chest x-ray shows evidence of CHF. CT scan of the brain was unremarkable. LABS: Reviewed. CBC is normal. PT/INR, PTT normal. Sodium 136, potassium 4.4, chloride is 103, CO2 is 26, anion gap 7, BUN 20, creatinine 1.26. Total bilirubin 1.5, AST 158, ALT 142, TSH 6.250. Urine is negative. Drug screen was negative. CURRENT MEDICATIONS: Include amiodarone 400 mg twice a day, Lasix 20 mg IV q.12, subcu heparin, insulin per protocol, levothyroxine 75 mcg a day, Cozaar 25 mg at bedtime, metoprolol 50 mg twice a day, Narcan p.r.n., Protonix 40 mg IV daily, potassium chloride replacement, basic IV and Aldactone 25 mg daily. ASSESSMENT: 1. Ventricular fibrillation, status post defibrillation x2, of unclear etiology. This may relate to an arrhythmia. 2. Congestive heart failure, secondary to above. 3. History of longstanding cardiomyopathy, etiology unclear, possibly familial. 4. History of hypertension. 5. Hypothyroidism. 6. Rule out congestive hepatopathy. 7. Rule out sleep apnea syndrome. PLAN: The patient will be followed by Cardiology. No additional recommendations are made from my perspective. The patient should be evaluated for possible sleep apnea syndrome. The patient should be started on Synthroid 75 mcg a day. Additional recommendations and suggestions are forthcoming. MMODL / IJN: [id number] /
[2018-09-15] MEDS: HEPARIN SODIUM,PORCINE 5,000 UNIT/ML 1 ML VIAL SQ SCH ×3 (00:10→15:51)
[2018-09-15 05:11] LABS: Basophils % (A) 0 %; Eosinophils # (A) 0.1 k/uL (0-0.7); Eosinophils % (A) 1 %; HCT 40.3 % (39.0-53.0); Lymphocytes # (A) 2.1 k/uL (1.0-4.8); Lymphocytes % (A) 18 %; MCH 28.9 pg (25.0-35.0); MCHC 32.3 g/dL (31.0-37.0); MCV 89.4 fL (80.0-100.0); Mean Platelet Volume 8.1; Monocytes # (A) 0.7 k/uL (0-1.0); Monocytes % (A) 6 %; Neutrophils # (A) 8.6 k/uL (1.3-7.7); Neutrophils % (A) 73 %; Platelet Count 178 k/uL (150-450); RBC 4.51 m/uL (4.30-5.90); RDW 13.7 % (11.5-15.5); WBC 11.8 k/uL (3.8-10.6)
[2018-09-15 05:23] LABS: Albumin 3.6 g/dL (3.5-5.0); Calcium 8.7 mg/dL (8.4-10.2); Magnesium 1.9 mg/dL (1.6-2.3); Phosphorus 4.7 mg/dL (2.5-4.5); Potassium 4.4 mmol/L (3.5-5.1); Total Bilirubin 2.8 mg/dL (0.2-1.3); Total Protein 6.2 g/dL (6.3-8.2)
[2018-09-15] MEDS ORDERED: Magnesium Replacement Protocol 1 EACH MISC MISCELLANE PRN (05:27)
[2018-09-15] MEDS: LOSARTAN 25 MG TAB PO SCH ×2 (06:00→20:53)
[2018-09-15] MEDS: MAGNESIUM SULFATE-D5W PMX 1 GM in DEXTROSE/WATER 1 100ML.BAG IVPB SCH ×2 (06:04→09:42)
[2018-09-15] MEDS ORDERED: LEVOTHYROXINE 75 MCG TAB PO SCH (06:30)
[2018-09-15 06:56] LABS: Glucose,Whole Blood 124 mg/dL (75-99)
[2018-09-15] MEDS: INSULIN ASPART 100 UNIT/ML 1 ML 10 ML VIAL SQ SCH ×4 (08:24→21:04)
[2018-09-15] MEDS: POTASSIUM CHLORIDE ER 10 MEQ TAB.ER.PRT PO SCH (08:38)
[2018-09-15] MEDS: FUROSEMIDE 10 MG/ML 2 ML VIAL IV SCH ×2 (08:38→20:55)
[2018-09-15] MEDS: METOPROLOL TARTRATE 50 MG TAB PO SCH ×2 (08:38→20:55)
[2018-09-15] MEDS: PANTOPRAZOLE 40 MG/10 ML VIAL IV SCH (08:38)
[2018-09-15] MEDS: SPIRONOLACTONE 25 MG TAB PO SCH (08:39)
[2018-09-15] MEDS ORDERED: SPIRONOLACTONE 25 MG TAB PO SCH (09:00)
[2018-09-15] MEDS ORDERED: POTASSIUM CHLORIDE ER 10 MEQ TAB.ER.PRT PO SCH (09:00)
[2018-09-15] MEDS ORDERED: AMIODARONE 200 MG TAB PO SCH (09:00)
--- NOTE | 2018-09-15 09:19 | XR ---
EXAMINATION TYPE: XR chest 1V portable DATE OF EXAM: 09/15/2018 HISTORY: Shortness of breath. COMPARISON: 09/14/2018 TECHNIQUE: Single view of the chest is submitted. FINDINGS: Pulmonary venous congestion persists although is much improved as are scattered infiltrates. Continue d cardiomegaly. Hilar and mediastinal structures are within normal limits. Degenerative changes are seen of the dorsal spine. IMPRESSION: 1. Pulmonary venous congestion persists although is much improved as are scattered infiltrates. Cont inued cardiomegaly.
[2018-09-15] MEDS: AMIODARONE 200 MG TAB PO SCH ×2 (09:42→20:54)
--- NOTE | 2018-09-15 11:19 | P.CNNES ---
History of Present Illness Consult date: 09/15/18 Reason for Consult: This patient is admitted after cardiac arrest and altered mental status. History of Present Illness: This patient is a 57-year-old right-handed white male who has a long-standing history of severe cardiomyopathy over 14 years. Patient is followed locally by his non ferrous material handler Dr. Adame and also by a non ferrous material handler at the [facility] Dr. Kent. The patient is examined today in the intensive care unit. According to his who provided the medical history he was doing fine and then became very restless at home. He went to bed and when his tried to arouse him he became very short of breath and he apparently stared into space and became unarousable. She immediately called EMS. When EMS arrived they started CPR and found the patient to be in ventricular fibrillation on the monitor. He was defibrillated 2. They were able to obtain a blood pressure and stabilize him and brought him immediately to the emergency room at [facility] for further evaluation. The patient in the ER apparently became very agitated and became unresponsive. He was treated with Ativan in the ER due to the agitation. He was evaluated by cardiology who immediately took him directly for cardiac catheterization. He was started on amiodarone drip and went to the [facility] and completed a cardiac catheterization which came back normal with no evidence of coronary artery disease. While he was in the emergency room the patient became somewhat agitated and also confused. There was concern for a question of possible TIA versus stroke. He has no previous history of TIA or stroke however given this acute cardiac arrest there was concern and neurology was consulted for further evaluation today. According to the was at bedside today he is showing significant improvement in his mental status. He was sent for a computed tomography scan of the brain yesterday which revealed no acute intracranial abnormality but only mild to moderate diffuse age-related atrophy. The states that she feels he is much better and seems to be near baseline level of function. He shouldn't denies much memory of the cardiac arrest event that occurred at home. Most likely he suffered some degree of hypoxia due to the cardiac arrest and likely produce some degree of hypoxic encephalopathy which is significantly improved today. Most likely cause of his ventricular fibrillation is due to his long history of cardiomyopathy. Cardiology is planning to put a ICD placement for him tomorrow. Patient seems to be very much alert today in the ICU and states he has never had cardiac arrest previously. He does seem to answer all questions appropriately and denies any focal weakness or paresthesias on examination at this time. Due to his acute confusional state yesterday neurology was consulted today for further evaluation and recommendations. Review of Systems Constitutional: Denies chills, Denies fever Eyes: denies blurred vision, denies pain Ears, nose, mouth and throat: Denies headache, Denies sore throat Cardiovascular: Denies chest pain, Denies shortness of breath Respiratory: Denies cough Gastrointestinal: Denies abdominal pain, Denies diarrhea, Denies nausea, Denies vomiting Musculoskeletal: Denies myalgias Integumentary: Denies pruritus, Denies rash Neurological: Denies numbness, Denies weakness Psychiatric: Denies anxiety, Denies depression Endocrine: Denies fatigue, Denies weight change Past Medical History Past Medical History: Heart Failure, Hypertension Additional Past Medical History / Comment(s): Cardiomyopathy, PVCs, recent bronchitis and has had bronchitis 3 times this year, borderline diabetic, 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 History of Any Multi-Drug Resistant Organisms: None Reported Past Surgical History: Appendectomy, Orthopedic Surgery Additional Past Surgical History / Comment(s): Arthroscopy on knee, colonoscopy Past Anesthesia/Blood Transfusion Reactions: No Reported Reaction Smoking Status: Never smoker - Past Family History Father Family Medical History: Cancer Additional Family Medical History / Comment(s): Father at the age of 36yrs from bone cancer. Mother Family Medical History: COPD Additional Family Medical History / Comment(s): Mother has heart valve issues. She is 82 yrs old. Medications and Allergies Home Medications Medication Instructions Recorded Confirmed Type Carvedilol [Coreg] 25 mg PO BID 03/17/17 09/14/18 History Enalapril Maleate [Vasotec] 10 mg PO BID 03/17/17 09/14/18 History Allergies Allergy/AdvReac Type Severity Reaction Status Date / Time No Known Allergies Allergy Verified 09/14/18 09:02 Physical Examination - Vital Signs Vital Signs: Vital Signs Temp Pulse Resp BP Pulse Ox 09/15/18 10:00 71 16 108/78 95 09/15/18 09:00 85 16 107/68 95 09/15/18 08:00 98.2 F 68 13 97/69 96 09/15/18 07:00 70 12 96/73 96 09/15/18 06:00 72 22 98/73 98 09/15/18 05:00 70 18 96/67 94 L 09/15/18 04:00 98.2 F 65 14 91/68 98 09/15/18 03:00 67 17 89/67 98 09/15/18 02:00 64 10 L 87/65 98 09/15/18 01:00 71 10 L 92/69 98 09/15/18 00:00 97.7 F 64 15 89/58 93 L 09/14/18 23:00 64 15 101/73 94 L 09/14/18 22:00 68 15 93/72 94 L 09/14/18 21:00 69 20 94/67 92 L 09/14/18 20:00 66 17 101/73 96 09/14/18 19:00 65 15 101/63 97 09/14/18 18:00 71 14 101/76 97 09/14/18 17:00 69 12 97/70 99 09/14/18 16:00 98 F 67 17 98/71 98 09/14/18 15:00 63 15 106/74 98 09/14/18 14:00 76 19 103/89 99 09/14/18 12:00 100/77 09/14/18 11:13 15 Intake and Output 09/14/18 09/15/18 09/15/18 22:59 06:59 14:59 Intake Total 666.6 598 440 Output Total 745 350 0 Balance -78.4 248 440 Intake: IV 546.6 598 200 Amiodarone 450 mg In 146.6 128 Dextrose 5% in Water 250 ml @ 1 MG/MIN 34.53 mls/ hr IV .Q7H31M [facility] Rx#: [id number] Magnesium Sulfate-D5w Pmx 100 1 gm In Dextrose/Water 1 100ml.bag @ 100 mls/hr IVPB Q1H [facility] Rx#: [id number] Sodium Chloride 0.9% 1, 250 000 ml @ 100 mls/hr IV . Q10H [facility] Rx#:[id number] Sodium Chloride 0.9% 1, 150 370 200 000 ml @ 50 mls/hr IV . Q20H [facility] Rx#:[id number] Oral 240 Tube Feeding 120 Output: Urine 745 350 0 Other: Voiding Method Indwelling Catheter Urinal Toilet # Voids 1 1 Weight 98 kg - Constitutional General appearance: average body habitus, cooperative - EENT EENT: PERRL, mucous membranes moist - Respiratory Respiratory: lungs clear, normal breath sounds - Cardiovascular Cardiovascular: regular rate, normal S1, normal S2 Extremities: no peripheral edema bilaterally - Gastrointestinal Gastrointestinal: normoactive bowel sounds - Integumentary Integumentary: normal - Neurologic Cranial nerve examination: PERRL, EOMI, VFF, V1/V2/V3 grossly intact, face symmetric, tongue midline, intact gag reflex, intact corneal reflex, normal palatal elevation Speech examination: intact Sensorimotor examination: intact Motor examination - right side: 4/5: biceps, triceps, wrist flexion, wrist extension, screen making supervisor, hip flexors, knee extensors, dorsiflexion, toe extension (EHL) , plantarflexion Motor examination - left side: 4/5: biceps, triceps, wrist flexion, wrist extension, screen making supervisor, hip flexors, knee extensors, dorsiflexion, toe extension (EHL) , plantarflexion Detailed sensory examination: intact Reflex and gait examination: intact Reflexes: 1+: ankle, bicep, knee, tricep - Musculoskeletal Musculoskeletal: no pain - Psychiatric Psychiatric: mood/affect appropriate, cooperative Results - Laboratory Findings CBC and BMP: 09/15/18 04:33 09/15/18 04:33 Abnormal Lab Findings: Abnormal Labs 09/14/18 09/14/18 09/14/18 07:34 07:39 07:39 WBC Neutrophils # Lymphocytes # (Manual) 6.23 H Sodium 136 L Creatinine 1.26 H Glucose 231 H POC Glucose (mg/dL) 203 H Phosphorus Total Bilirubin 1.5 H AST 158 H ALT 142 H Total Protein TSH 6.250 H Urine Blood Urine RBC Urine WBC Amorphous Sediment 09/14/18 09/14/18 09/14/18 08:20 10:50 13:42 WBC Neutrophils # Lymphocytes # (Manual) Sodium Creatinine Glucose POC Glucose (mg/dL) 142 H 115 H Phosphorus Total Bilirubin AST ALT Total Protein TSH Urine Blood Moderate H Urine RBC 12 H Urine WBC 11 H Amorphous Sediment Occasional H 09/14/18 09/14/18 09/14/18 16:54 18:43 21:38 WBC Neutrophils # Lymphocytes # (Manual) Sodium 134 L Creatinine Glucose 146 H POC Glucose (mg/dL) 122 H 112 H Phosphorus Total Bilirubin AST ALT Total Protein TSH Urine Blood Urine RBC Urine WBC Amorphous Sediment 09/15/18 09/15/18 09/15/18 04:33 04:33 06:54 WBC 11.8 H Neutrophils # 8.6 H Lymphocytes # (Manual) Sodium 130 L Creatinine Glucose 121 H POC Glucose (mg/dL) 124 H Phosphorus 4.7 H Total Bilirubin 2.8 H AST 79 H ALT 106 H Total Protein 6.2 L TSH Urine Blood Urine RBC Urine WBC Amorphous Sediment Assessment and Plan (1) Cardiac arrest Current Visit: Yes Status: Acute Code(s): I46.9 - CARDIAC ARREST, CAUSE UNSPECIFIED SNOMED Code(s): 235612675 (2) Hypoxic encephalopathy Current Visit: Yes Status: Acute Code(s): G93.1 - ANOXIC BRAIN DAMAGE, NOT ELSEWHERE CLASSIFIED SNOMED Code(s): 510310394 (3) Cardiomyopathy Current Visit: Yes Status: Acute Code(s): I42.9 - CARDIOMYOPATHY, UNSPECIFIED SNOMED Code(s): 09732697 (4) Ventricular fibrillation Current Visit: Yes Status: Acute Code(s): I49.01 - VENTRICULAR FIBRILLATION SNOMED Code(s): 42011865 Plan: This patient is a 57-year-old male who suffered an acute cardiac arrest at home yesterday evening. The patient has a known history of severe cardiomyopathy for over 14 years. He was shocked twice on the scene at home by EMS and stabilizing brought into the emergency room for further evaluation. He was seen in the ER by Dr. Montana. He was very agitated and required Ativan. Apparently he showed increased confusion and agitation in the ER raising a question of possible stroke. He was sent for computed tomography scan of the brain yesterday which was reviewed and fails to reveal any evidence of acute stroke or hemorrhage. He was admitted to the intensive care unit. Patient did undergo a cardiac catheterization by cardiology yesterday which came back normal with no evidence of coronary artery disease. Neurology was consulted today in the ICU for neurological follow-up even his episode of confusion. His neurological examination today is nonfocal. He is alert and oriented 3. His speech is fluent and clear with no evidence of any aphasia. He has no focal motor deficit. This patient likely suffered a mild degree of hypoxic encephalopathy due to his cardiac arrest. His neurological examination at this time is nonfocal. He does not show any signs of focal deficit on neurological exam at this time. We will continue to follow his progress closely to see if there is any change in his mental status. He should continue to only improve given this recent episode. Once again his neurological examination is nonfocal. who was at bedside also feels he is now back to baseline level of function. If he shows any further changes in his mental status we may consider follow-up CAT scan of the brain. Patient is being considered for ICD placement tomorrow due to his cardiac arrest event. We will follow along with cardiology. His overall prognosis at this time remains guarded. We will continue close neurological follow-up for this patient in the intensive care unit. Time with Patient: Greater than 30
[2018-09-15 11:22] LABS: Potassium 4.8 mmol/L (3.5-5.1)
--- NOTE | 2018-09-15 11:44 | P.PN ---
Subjective Progress Note Date: 09/15/18 Principal diagnosis: Cardiac arrest This 57-year-old gentleman was admitted to the hospital after being brought in the emergency room. He at cardiac resuscitation at home he was finally found thrashing his bed unresponsive. EMS found the patient in ventricular fibrillation. Patient has underlying history of dilated cardiomyopathy of unclear etiology. He did undergo a cardiac catheterization yesterday with coronary arteries were noted to be nonocclusive. The patient has had a history of hypertension, impaired fasting blood sugars. No evidence of congestive cardiac failure. Patient's been placed on medications by cardiology. His been given some Lasix and Aldactone ABDOULAYE inhibitor and beta jeffery. Patient used to be on enalapril and Coreg at home. His thyroid function is borderline. His been placed on a levothyroxine 75 g. This will be decreased to 25. His schedule for AICD. The patient mentally is no clear today he started does not recall the event which is expected. He is otherwise oriented high does have sometimes some forgetfulness and has the question again. He didn't realize that he had called me and Dr. Guillen and he was somewhat mixed up because Dr. Guillen had just finished seeing him. Expect this mild anoxic insult to improve. His CAT scan had showed no evidence of stroke and he has no focal neurological sign. His speech is very clear his vision is clear. Has had no major arrhythmia is just due to amiodarone. Discussed status with the and mother at the bedside. The patient's liver enzymes are mildly improved but sugars are controlled. REVIEW OF SYSTEMS: Neuro: Denies any headaches dizziness. Psych: Denies anxiety depression feels oriented. Cardiac: Denies chest pain and angina palpitations. Respiratory: Denies shortness of breath cough. GI: Denies nausea vomiting or abdominal pain. No diarrhea or constipation, no bowel movement yet. : Denies dysuria hematuria. Extremities: Denies pain. No edema. Skin: Intact. Constitutional: No fever, chills. Objective - Vital Signs Vital signs: Vital Signs Temp 98.2 F 09/15/18 08:00 Pulse 71 09/15/18 10:00 Resp 16 09/15/18 10:00 BP 108/78 09/15/18 10:00 Pulse Ox 95 09/15/18 10:00 Intake & Output 09/14/18 09/15/18 09/15/18 18:59 06:59 18:59 Intake Total 919.8 846 440 Output Total 1625 395 0 Balance -705.2 451 440 Weight 92.986 kg 98 kg Intake: IV 799.8 846 200 Amiodarone 450 mg In 231.8 176 Dextrose 5% in Water 250 ml @ 1 MG/MIN 34.53 mls/ hr IV .Q7H31M [facility] Rx#: [id number] Magnesium Sulfate-D5w Pmx 100 1 gm In Dextrose/Water 1 100ml.bag @ 100 mls/hr IVPB Q1H [facility] Rx#: [id number] Sodium Chloride 0.9% 1, 450 50 000 ml @ 100 mls/hr IV . Q10H [facility] Rx#:[id number] Sodium Chloride 0.9% 1, 520 200 000 ml @ 50 mls/hr IV . Q20H [facility] Rx#:[id number] Oral 240 Tube Feeding 120 Output: Urine 1625 395 0 Uretheral (Nicole) 350 Other: Voiding Method Indwelling Catheter Urinal Toilet # Voids 1 1 PHYSICAL EXAMINATION: Cooperative, at present in no acute distress. HEENT: Neck supple. No JVD. Chest: Clear to auscultation percussion. Cardiac: Normal S1-S2 no gallops no murmur . Abdomen: Soft bowel sounds present. Extremities: No edema no tenderness Neurologically: Awake, alert, oriented with well-coordinated movements. - Labs CBC & Chem 7: 09/15/18 04:33 09/15/18 10:33 Labs: Abnormal Lab Results - Last 24 Hours (Table) 09/14/18 09/14/18 09/14/18 Range/Units 13:42 16:54 18:43 WBC (3.8-10.6) k/uL Neutrophils # (1.3-7.7) k/uL Sodium 134 L (137-145) mmol/L Glucose 146 H (74-99) mg/dL POC Glucose (mg/dL) 115 H 122 H (75-99) mg/dL Phosphorus (2.5-4.5) mg/dL Total Bilirubin (0.2-1.3) mg/dL AST (17-59) U/L ALT (21-72) U/L Total Protein (6.3-8.2) g/dL 09/14/18 09/15/18 09/15/18 Range/Units 21:38 04:33 04:33 WBC 11.8 H (3.8-10.6) k/uL Neutrophils # 8.6 H (1.3-7.7) k/uL Sodium 130 L (137-145) mmol/L Glucose 121 H (74-99) mg/dL POC Glucose (mg/dL) 112 H (75-99) mg/dL Phosphorus 4.7 H (2.5-4.5) mg/dL Total Bilirubin 2.8 H (0.2-1.3) mg/dL AST 79 H (17-59) U/L ALT 106 H (21-72) U/L Total Protein 6.2 L (6.3-8.2) g/dL 09/15/18 09/15/18 Range/Units 06:54 10:33 WBC (3.8-10.6) k/uL Neutrophils # (1.3-7.7) k/uL Sodium 132 L (137-145) mmol/L Glucose 128 H (74-99) mg/dL POC Glucose (mg/dL) 124 H (75-99) mg/dL Phosphorus (2.5-4.5) mg/dL Total Bilirubin (0.2-1.3) mg/dL AST (17-59) U/L ALT (21-72) U/L Total Protein (6.3-8.2) g/dL Assessment and Plan Assessment: ASSESSMENT: 1. Status post cardiac arrest. 2. Ventricular fibrillation resolved. 3. Nonischemic dilated cardiomyopathy. 4. essential hypertension. 5. Impaired fasting blood sugars ]. 6. Borderline hypothyroidism. 7. fatty liver with mildly elevated liver function. 8. Hypoxic encephalopathy. PLAN: Continue present medical regimen. Levothyroxine be reduced to 25 g. Patient's general condition is discussed with the patient prognosis remains guarded. His schedule for an AICD tomorrow. Repeat patient's status with the spouse and mother and patient.
[2018-09-15 12:01] LABS: Glucose,Whole Blood 122 mg/dL (75-99)
--- NOTE | 2018-09-15 12:15 | PN ---
PROGRESS NOTE DATE OF SERVICE: 09/15/2018. HISTORY: A 57-year-old gentleman who I saw yesterday in consultation. He has a history of cardiomyopathy. The patient has an ejection fraction of 20% to 25% per echo. He apparently had an episode in the middle of the night. He was apparently having respiratory distress. EMS was called. In route, he was found to be in ventricular fibrillation and was defibrillated twice. After that, he was somewhat restless in the Emergency Room and Dr. Montana and is giving him Ativan to settle him down. Chest x-ray shows evidence of fluid overload/CHF. CT of the brain was unremarkable. He went to the syrup machine laborer and his catheterization was normal. TSH was elevated, that was a new finding, and he was started on Synthroid. In addition, he has been maintained on Coreg and lisinopril for quite some time. More recently, he was started on amiodarone, beta jeffery, and Aldactone. He was also given Lasix. Currently, he is on room air. He is getting IV amiodarone at 0.5 mg/minute and a saline IV at 50 mL an hour. Today, he is feeling much better. PHYSICAL EXAMINATION: Current vital signs are reviewed temperature 92, heart rate 68, respiratory rate 13, blood pressure 97/69, mean 78, room air saturation 96%. Appears in no acute distress. HEENT examination is grossly unremarkable. Neck is supple. Full range of motion. No adenopathy or thyromegaly. Cardiovascular examination reveals regular rhythm and rate. Heart sounds are distant. No premature beats. No clear-cut murmur. Lungs reveal mostly clear breath sounds. A few scattered rhonchi. No wheezes or crackles. Abdomen is soft. Bowel sounds are heard. Extremities are intact. No cyanosis, clubbing, or edema. Skin without rash. Neurologic examination is brief but nonfocal. LABS: Reviewed. White count 11.8, hemoglobin 13, hematocrit 40.3, platelet count 178,000. Sodium 130, potassium 4.4, chloride 99, CO2 of 22, BUN and creatinine were 18 and 1.10. Total bilirubin is 2.8, AST 79, ALT 106. The rest of the labs are reviewed. A chest x- ray was done today. It does show improved aeration. He has significant cardiomegaly. There is some fluid in the minor fissure. There is some cephalization of the upper lobe vessels. MEDICATIONS: Reviewed. ASSESSMENT: 1. Ventricular fibrillation, status post defibrillation x2. This may relate to underlying arrhythmia. 2. Congestive heart failure, secondary to above. 3. History of longstanding cardiomyopathy, etiology unclear, possibly familial. 4. History of hypertension. 5. Hypothyroidism, which is a new finding. 6. Rule out congestive hepatopathy. 7. Rule out sleep apnea syndrome. PLAN: The patient may end up with an AICD. The patient's medications have been X significantly enhanced with beta jeffery, diuretic and potassium sparing diuretic. The patient appears much improved. Chest x-ray shows better aeration. We will continue to follow. He does need an outpatient sleep study. MMODL / IJN: [id number] /
--- NOTE | 2018-09-15 13:50 | P.PN ---
Subjective Progress Note Date: 09/15/18 This is a 57-year-old gentleman with history of nonischemic cardiomyopathy, who was admitted to the hospital with cardiac arrest at home and witnessed ventricular fibrillation. Patient was shocked 2 at home. Patient was evaluated by Dr. BC Mahajan. Patient had a cardiac catheterization yesterday and was found to have normal coronary arteries. His echo showed an ejection fraction about 30-35%.. Patient is advised to have AICD implantation for secondary prevention. Patient and patient's . I explained the details of the procedure, and also risks and benefits of the procedure which they fully understood. His chest x-ray on admission showed findings of CHF. Today x-ray showed improvement. He is currently on IV Lasix. We'll resume his Coreg and beta blockers. Patient is also on amiodarone. Rest of the medication be continued. AICD implantation tomorrow. Patient will kept nothing by mouth after midnight Objective - Vital Signs Vital signs: Vital Signs Temp 98.2 F 09/15/18 08:00 Pulse 74 09/15/18 13:00 Resp 14 09/15/18 13:00 BP 108/76 09/15/18 13:00 Pulse Ox 97 09/15/18 13:00 Intake & Output 09/14/18 09/15/18 09/15/18 18:59 06:59 18:59 Intake Total 919.8 846 1000 Output Total 1625 395 475 Balance -705.2 451 525 Weight 92.986 kg 98 kg Intake: IV 799.8 846 400 Amiodarone 450 mg In 231.8 176 Dextrose 5% in Water 250 ml @ 1 MG/MIN 34.53 mls/ hr IV .Q7H31M [facility] Rx#: [id number] Magnesium Sulfate-D5w Pmx 100 100 1 gm In Dextrose/Water 1 100ml.bag @ 100 mls/hr IVPB Q1H [facility] Rx#: [id number] Sodium Chloride 0.9% 1, 450 50 000 ml @ 100 mls/hr IV . Q10H [facility] Rx#:[id number] Sodium Chloride 0.9% 1, 520 300 000 ml @ 50 mls/hr IV . Q20H [facility] Rx#:[id number] Oral 600 Tube Feeding 120 Output: Urine 1625 395 475 Uretheral (Nicole) 350 Other: Voiding Method Indwelling Catheter Urinal Toilet # Voids 1 1 - Exam GENERAL EXAM: Patient is alert and oriented and doesn't appear to be in any acute distress HEENT: Normocephalic. Normal reaction of pupils, equal size, normal range of extraocular motion. No erythema or exudates in the throat. NECK: No masses, no nuchal rigidity. CHEST: No chest wall deformity. LUNGS: Few scattered rales HEART: S1 and S2 normal with no audible mumurs or gallops. Regular rhythm, femorals equal on both sides.. ABDOMEN: No hepatosplenomegaly, normal bowel sounds, no guarding or rigidity. SKIN: No rashes CENTRAL NERVOUS SYSTEM: No focal deficits. EXTREMITIES: No cyanosis, clubbing or edema. - Labs CBC & Chem 7: 09/15/18 04:33 09/15/18 10:33 Labs: Abnormal Lab Results - Last 24 Hours (Table) 09/14/18 09/14/18 09/14/18 Range/Units 16:54 18:43 21:38 WBC (3.8-10.6) k/uL Neutrophils # (1.3-7.7) k/uL Sodium 134 L (137-145) mmol/L Glucose 146 H (74-99) mg/dL POC Glucose (mg/dL) 122 H 112 H (75-99) mg/dL Phosphorus (2.5-4.5) mg/dL Total Bilirubin (0.2-1.3) mg/dL AST (17-59) U/L ALT (21-72) U/L Total Protein (6.3-8.2) g/dL 09/15/18 09/15/18 09/15/18 Range/Units 04:33 04:33 06:54 WBC 11.8 H (3.8-10.6) k/uL Neutrophils # 8.6 H (1.3-7.7) k/uL Sodium 130 L (137-145) mmol/L Glucose 121 H (74-99) mg/dL POC Glucose (mg/dL) 124 H (75-99) mg/dL Phosphorus 4.7 H (2.5-4.5) mg/dL Total Bilirubin 2.8 H (0.2-1.3) mg/dL AST 79 H (17-59) U/L ALT 106 H (21-72) U/L Total Protein 6.2 L (6.3-8.2) g/dL 09/15/18 09/15/18 Range/Units 10:33 12:00 WBC (3.8-10.6) k/uL Neutrophils # (1.3-7.7) k/uL Sodium 132 L (137-145) mmol/L Glucose 128 H (74-99) mg/dL POC Glucose (mg/dL) 122 H (75-99) mg/dL Phosphorus (2.5-4.5) mg/dL Total Bilirubin (0.2-1.3) mg/dL AST (17-59) U/L ALT (21-72) U/L Total Protein (6.3-8.2) g/dL Assessment and Plan (1) Cardiac arrest Current Visit: Yes Status: Acute Code(s): I46.9 - CARDIAC ARREST, CAUSE UNSPECIFIED SNOMED Code(s): 920966664 (2) Cardiomyopathy Current Visit: Yes Status: Acute Code(s): I42.9 - CARDIOMYOPATHY, UNSPECIFIED SNOMED Code(s): 06616252 (3) Hypoxic encephalopathy Current Visit: Yes Status: Acute Code(s): G93.1 - ANOXIC BRAIN DAMAGE, NOT ELSEWHERE CLASSIFIED SNOMED Code(s): 000274931 (4) Ventricular fibrillation Current Visit: Yes Status: Acute Code(s): I49.01 - VENTRICULAR FIBRILLATION SNOMED Code(s): 04327825 (5) Acute systolic CHF (congestive heart failure) Current Visit: Yes Status: Acute Code(s): I50.21 - ACUTE SYSTOLIC ( CONGESTIVE) HEART FAILURE SNOMED Code(s): 057833115 Plan: Patient remains stable. His neurological status seems to be back to normal. Patient is seen by neurologist also. We'll proceed with AICD implantation in the morning
[2018-09-15] MEDS: SODIUM CHLORIDE 0.9% 1,000 ML IV SCH (15:51)
[2018-09-15 16:57] LABS: Glucose,Whole Blood 118 mg/dL (75-99)
[2018-09-15] MEDS ORDERED: IPRATROPIUM-ALBUTEROL 3 ML NEB INHALATION PRN (17:21)
[2018-09-15] MEDS: ACETAMINOPHEN TAB 325 MG TAB PO PRN (17:49)
[2018-09-15] MEDS ORDERED: BENZOCAINE/MENTHOL LOZENG 1 EACH LOZENGE MUCOUS MEM PRN (18:54)
[2018-09-15 20:39] LABS: Glucose,Whole Blood 129 mg/dL (75-99)
[2018-09-16] MEDS: HEPARIN SODIUM,PORCINE 5,000 UNIT/ML 1 ML VIAL SQ SCH ×3 (01:00→15:51)
[2018-09-16 04:45] LABS: Basophils % (A) 0 %; Eosinophils # (A) 0.1 k/uL (0-0.7); Eosinophils % (A) 1 %; HGB 12.9 gm/dL (13.0-17.5); Lymphocytes # (A) 1.9 k/uL (1.0-4.8); Lymphocytes % (A) 18 %; MCH 29.3 pg (25.0-35.0); MCV 88.7 fL (80.0-100.0); Mean Platelet Volume 8.3; Monocytes # (A) 0.8 k/uL (0-1.0); Monocytes % (A) 7 %; Neutrophils # (A) 7.7 k/uL (1.3-7.7); Neutrophils % (A) 73 %; Platelet Count 138 k/uL (150-450); RDW 13.5 % (11.5-15.5); WBC 10.5 k/uL (3.8-10.6)
[2018-09-16 04:57] LABS: Albumin 3.4 g/dL (3.5-5.0); Calcium 8.8 mg/dL (8.4-10.2); Phosphorus 3.6 mg/dL (2.5-4.5); Potassium 4.4 mmol/L (3.5-5.1)
[2018-09-16 04:58] LABS: Prothrombin Time 10.6 sec (9.0-12.0)
[2018-09-16] MEDS ORDERED: ceFAZolin 1,000 MG in SODIUM CHLORIDE 0.9% IRRIGATIO 250 ML IRRIGATION ONE (05:00)
[2018-09-16] MEDS ORDERED: SODIUM CHLORIDE 0.9% 1,000 ML IV SCH ×2 (05:00)
[2018-09-16] MEDS ORDERED: ceFAZolin IN SWFI 2 GM/20 ML SYRINGE IVP ONE ×2 (05:00→11:55)
[2018-09-16 07:04] LABS: Glucose,Whole Blood 126 mg/dL (75-99)
[2018-09-16] MEDS: INSULIN ASPART 100 UNIT/ML 1 ML 10 ML VIAL SQ SCH ×4 (07:09→21:27)
[2018-09-16] MEDS: LEVOTHYROXINE 25 MCG TAB PO SCH (07:33)
[2018-09-16] MEDS: SODIUM CHLORIDE 0.9% 1,000 ML IV SCH (07:37)
--- NOTE | 2018-09-16 08:00 | XR ---
EXAMINATION TYPE: XR chest 1V portable DATE OF EXAM: 09/16/2018 CLINICAL HISTORY: Difficulty breathing and CHF progress study. TECHNIQUE: Single AP portable upright view of the chest is obtained. COMPARISON: Chest x-ray from one day earlier and older studies. FINDINGS: There is cardiomegaly with increasing central vascular congestion. No large pleural effusi ons or pneumothorax is evident bilaterally. Underlying dextroconvex scoliosis is noted. IMPRESSION: Findings consistent with worsening CHF exacerbation as there is cardiomegaly with increas ing central vascular congestion and developing central perihilar edema noted.
--- NOTE | 2018-09-16 08:29 | P.PN ---
Progress Note - Text The patient is a 57-year-old gentleman with a history of nonischemic cardiomyopathy. Patient apparently developed an acute episode of ventricular fibrillation and was brought in unresponsive from home on September 14. The patient is had a catheterization which showed fairly normal coronary circulation. His neurological status has improved. He is sitting up in a chair at the side of the bed. Alert and oriented. Does not remember the events leading up to the episode. An echocardiogram did show severe global hypokinesia with a dilated left atrium of greater than 40 and an ejection fraction between 20 and 25%. Patient and his is present this morning. Plans are for an AICD placement and reasons were discussed with patient and . Questions were answered. Patient denies any chest pain or shortness of breath at this time. Last vital signs show a temperature of 98.4 with a pulse of 71 and respirations 18. Blood pressure is 115/68 and he was 96% saturated. Lungs are generally clear. Heart tones were regular without murmurs. Abdomen nontender. No edema noted. No focal neurological deficits. He presently is alert and oriented. Laboratory values White count is 10.5 with a hemoglobin of 12.9 and a platelet count of 138. INR was 1.0 Sodium is down to 127 with potassium 4.4. BUN is 18 with a creatinine of 1.08 given him a GFR of 75 Blood sugar was 120. Patient's bilirubin was 3.0. AST is down to 41 and ALT down to 80. Albumin was 3.4. Calcium, phosphorus and magnesium are normal. Chest x-ray from this morning shows cardiomegaly and evidence of pulmonary congestion. Does appear to be worse than yesterday's. Impression and plan Overall this 57-year-old gentleman with an episode of ventricular fibrillation associated with loss of consciousness. Plans are for AICD placement likely today. Patient has underlying nonischemic cardiomyopathy. Also with history of hypertension. Hyperlipidemia. Patient does have elevated TSH and he is on thyroid replacement. Mild hyponatremia. Once again discussed with patient, spouse and nursing staff this morning. Specialist progress note reviewed.
[2018-09-16] MEDS: POTASSIUM CHLORIDE ER 10 MEQ TAB.ER.PRT PO SCH (08:42)
[2018-09-16] MEDS: AMIODARONE 200 MG TAB PO SCH ×2 (08:42→21:26)
[2018-09-16] MEDS: METOPROLOL TARTRATE 50 MG TAB PO SCH ×2 (08:42→21:27)
[2018-09-16] MEDS: FUROSEMIDE 10 MG/ML 2 ML VIAL IV SCH (08:42)
[2018-09-16] MEDS: PANTOPRAZOLE 40 MG/10 ML VIAL IV SCH (08:42)
[2018-09-16] MEDS: SPIRONOLACTONE 25 MG TAB PO SCH (08:43)
[2018-09-16] MEDS ORDERED: LIDOCAINE 1% INJ 10MG/ML (20 ML MDV) ONE (10:55)
[2018-09-16] MEDS ORDERED: fentaNYL (PF) 50 MCG/ML 2 ML AMP ONE (11:16)
[2018-09-16] MEDS ORDERED: PROPOFOL 10 MG/ML 20 ML VIAL IV ONE (11:16)
[2018-09-16] MEDS ORDERED: MIDAZOLAM 2 MG/2 ML VIAL ONE (11:16)
[2018-09-16] MEDS ORDERED: SODIUM CHLORIDE 0.9% 500 ML 500 ML IV ONE (11:25)
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
[2018-09-16] MEDS ORDERED: IOPAMIDOL-370 50ML BTL INJ ONE (11:50)
[2018-09-16] MEDS ORDERED: LIDOCAINE 1% INJ 10MG/ML (20 ML MDV) SQ ONE ×2 (11:59→12:05)
[2018-09-16] MEDS ORDERED: HYDROcodone/APAP 5-325MG 1 EACH TAB PO PRN (12:42)
--- NOTE | 2018-09-16 12:54 | P.PCN ---
Date of Procedure: 09/16/18 Preoperative Diagnosis: Cardiac myopathy, cardiac arrest and ventricular fibrillation Postoperative Diagnosis: The same Procedure(s) Performed: Single-chamber single coil AICD implantation Description of Procedure: HISTORY: This is a 57-year-old gentleman with history of nonischemic cardiomyopathy who was admitted to the hospital following cardiac arrest at home with a documented ventricular fibrillation. Patient's LV function appear to be in the range of 30-35%. Patient is advised to have AICD implantation. CONSENT:I have discussed the risks, benefits and alternative therapies for the above-mentioned procedure and for both sedation/analgesia as well as necessary blood product administration, if indicated, as they pertain to this patient. The patient has indicated understanding and acceptance of the risks and procedures discussed. PROCEDURE: Patient was brought to the lab in a fasting state. Patient was prepped and draped in the usual fashion. Patient was given IV sedation by department of anesthesia. The skin below the left clavicle was infiltrated with lidocaine. An incision was made parallel to deltopectoral groove was deepened until the pectoral fascia was exposed. A pocket was created by blunt dissection and cautery. Axillary venography was performed to delineate the course of the axillary vein. 1 venous stick was performed into extrathoracic portion of the axillary vein and a single sheath was advanced over the guidewires into left left in subclavian vein. Conscious Sedation: Provided by department of anesthesia Duration 44 minutes LEADS: VENTRICULAR: This is manufactured by [employer].. Model number is [id number] and the serial number is [id number]. THE DEVICE: This is manufactured by [employer]. Model number is [id number] and the serial number is [id number]. The ventricular lead is maneuvered l with help of a straight and curved stylets into the left ventricle apical region. Satisfactory position was obtained and threshold measurements were made. THRESHOLDS: VENTRICLE: The minimal pacing threshold was 0.7 V at pulse width of 0.5 with impedance of 1003. The R-wave is 11.7 and the slew rate is 2.8 V per second. The lead and pulse generator remained in the pocket after it was washed with antibiotics. Pocket was closed in the usual fashion. The fascia was closed with 2-0 Prolene ,the subcutaneous tissue was closed with 3-0 Prolene and the skin was closed with 4-0 Prolene. DFT TESTING: Patient was given deep anesthesia. VF was induced with T shock. This was appropriately detected without any follow outs. A single shock of 50 J converted patient back to sinus rhythm. Patient tolerated procedure well PROGRAMMING: Bradycardia therapy: MODE: VVI RATE: 40 OUTPUT: Ventricle: 3.5 V Tachycardia therapy: . The VF zone is programmed to a rate of 1 88 bpm. Initial detection is programmed to 30/40 and the digit was programmed 12 out of 16. The therapies were programmed to 25 J followed by 35 J 5. Last 2 shocks were with reversed polarity. The VT zone is programmed to a rate of 1 67 bpm. The therapies for programmed to burst pacing followed by ramp pacing of for 3 sequences each. This is followed by cardioversion with 24 J followed by 353 The monitor zone is programmed to a rate of 1 50 bpm. FINAL IMPRESSION: Sex we'll implantation of single coil single-chamber permanent pacemaker. DFT testing. Axillary venography COMPLICATIONS: None PLAN:. Patient be monitored on the telemetry unit. Prophylactic antibacterial be continued. Chest x-ray in the morning. If stable, patient may be discharged the next 24-48 hours.
[2018-09-16 13:21] LABS: Glucose,Whole Blood 104 mg/dL (75-99)
[2018-09-16] MEDS: ACETAMINOPHEN TAB 325 MG TAB PO PRN (15:51)
[2018-09-16 17:04] LABS: Glucose,Whole Blood 118 mg/dL (75-99)
[2018-09-16] MEDS: ceFAZolin IN SWFI 2 GM/20 ML SYRINGE IVP SCH (17:29)
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
[2018-09-16 20:16] LABS: Glucose,Whole Blood 134 mg/dL (75-99)
[2018-09-16] MEDS: LOSARTAN 25 MG TAB PO SCH (21:26)
[2018-09-17] MEDS: HEPARIN SODIUM,PORCINE 5,000 UNIT/ML 1 ML VIAL SQ SCH ×3 (00:34→16:23)
[2018-09-17] MEDS: ceFAZolin IN SWFI 2 GM/20 ML SYRINGE IVP SCH ×3 (00:35→13:00)
[2018-09-17 05:38] LABS: Basophils % (A) 0 %; Eosinophils # (A) 0.1 k/uL (0-0.7); Eosinophils % (A) 2 %; HCT 38.2 % (39.0-53.0); HGB 12.5 gm/dL (13.0-17.5); Lymphocytes # (A) 1.9 k/uL (1.0-4.8); Lymphocytes % (A) 21 %; MCH 29.4 pg (25.0-35.0); MCHC 32.7 g/dL (31.0-37.0); MCV 89.7 fL (80.0-100.0); Mean Platelet Volume 8.1; Monocytes # (A) 0.8 k/uL (0-1.0); Monocytes % (A) 8 %; Neutrophils # (A) 6.4 k/uL (1.3-7.7); Neutrophils % (A) 68 %; Platelet Count 142 k/uL (150-450); RBC 4.27 m/uL (4.30-5.90); RDW 13.5 % (11.5-15.5); WBC 9.4 k/uL (3.8-10.6)
[2018-09-17 06:01] LABS: Anion Gap 9 mmol/L; Blood Urea Nitrogen 18 mg/dL (9-20); Calcium 8.4 mg/dL (8.4-10.2); Carbon Dioxide 23 mmol/L (22-30); Chloride 96 mmol/L (98-107); Glucose 111 mg/dL (74-99); Potassium 4.3 mmol/L (3.5-5.1); Sodium 128 mmol/L (137-145)
[2018-09-17] MEDS: LEVOTHYROXINE 25 MCG TAB PO SCH (06:44)
[2018-09-17 06:55] LABS: Glucose,Whole Blood 123 mg/dL (75-99)
[2018-09-17] MEDS: INSULIN ASPART 100 UNIT/ML 1 ML 10 ML VIAL SQ SCH ×4 (07:09→21:45)
--- NOTE | 2018-09-17 07:13 | XR ---
EXAMINATION TYPE: XR chest 2V DATE OF EXAM: 09/17/2018 COMPARISON: 09/16/2018 HISTORY: Shortness of breath TECHNIQUE: Frontal and lateral views of the chest are obtained. FINDINGS: Scattered senescent parenchymal changes noted. Hyperinflation compatible with COPD. Patchy right perihilar infiltrate. Overall no change. Single lead pacer device distally within the right ventricle. No pneumothorax. Heart size is stable. Mediastinal structures are stable and grossly unremarkable. No evidence for hilar prominence. Degenerative changes dorsal spine. IMPRESSION: 1. Patchy right perihilar infiltrate. Overall no change.
--- NOTE | 2018-09-17 08:40 | P.PN ---
Progress Note - Text The patient is a 57-year-old gentleman with a history of nonischemic cardiomyopathy. The patient developed an episode of ventricular fibrillation and was brought in unresponsive to the emergency room on September 14. Subsequent heart catheterization revealed a fairly normal coronary arteries. Neurologic status has improved almost to baseline. Patient had a AICD placed yesterday. He states he does have some wheezing at times and shortness of breath intermittently. No chest pain. Most recent vital signs with temperature 98.2 with a pulse of 68 and respirations 15. Blood pressure 95/72. And he was 98% saturated. He is alert and oriented. Mildly restless. Anxious. Heart tones were regular. Lung tones were generally clear. No unusual edema. No focal neurological deficits. Laboratory values White count is 9.4 with hemoglobin 12.5 and a platelet count of 142. Sodium is 128 with potassium 4.3. BUN is 18 with creatinine 0.93 given him a GFR of 90. Blood sugar was 111. Calcium normal at 8.4. A chest x-ray was reported as patchy right perihilar infiltrate with no change but overall pattern appears improved from yesterday's in my opinion. Urine output is overall been good and weight is 99 kg. Impressions and plans Generally doing well has stated above. We'll wait for further recommendations from pulmonary medicine and cardiology. Discussed with patient and at bedside this morning. Patient has been ambulating and appears to be tolerating well. Patient remains on amiodarone. He is also on thyroid replacement as discussed with patient. He continues on beta jeffery and levothyroxine. He is also on Lasix 40 mg daily.
[2018-09-17] MEDS: METOPROLOL TARTRATE 50 MG TAB PO SCH ×2 (08:45→20:41)
[2018-09-17] MEDS: POTASSIUM CHLORIDE ER 10 MEQ TAB.ER.PRT PO SCH (08:45)
[2018-09-17] MEDS: SPIRONOLACTONE 25 MG TAB PO SCH (08:45)
[2018-09-17] MEDS: PANTOPRAZOLE 40 MG/10 ML VIAL IV SCH (08:45)
[2018-09-17] MEDS: AMIODARONE 200 MG TAB PO SCH ×2 (08:46→20:40)
[2018-09-17] MEDS: FUROSEMIDE 40 MG TAB PO SCH (08:46)
[2018-09-17] MEDS: ACETAMINOPHEN TAB 325 MG TAB PO PRN (08:57)
[2018-09-17] MEDS ORDERED: FUROSEMIDE 10 MG/ML 2 ML VIAL IV ONE (09:22)
--- NOTE | 2018-09-17 10:01 | PN ---
PROGRESS NOTE DATE OF SERVICE: 09/17/2018 This is a 57-year-old male who was seen in consultation a few days ago. He is postop day #1 status post AICD placement. The patient is not on any oxygen therapy or IVs. His chest x-ray shows some mild fluid overload. He initially came in with ventricular fibrillation having been defibrillated x2. He has a history of familial cardiomyopathy for the last 14 or 15 years with a current ejection fraction of 20%-25%. The patient's chest x-ray again shows some fluid overload, but his breathing is stable. Not requiring any supplemental oxygen. He sees Dr. Adame here in town and a tin stacker at [facility] by name is Dr. Viktor Pelletier. All-in-all, the patient is doing well. We did discover on this admission an elevated TSH he started receiving Synthroid. In addition, he is scheduled to have pulmonary function tests and does need to be evaluated for sleep apnea syndrome. Current vital signs include temperature 98.6, heart rate 67, respiratory rate 16, blood pressure 122/87, mean 98, room air saturation 94%-98%. Appears no acute distress. HEENT examination is grossly unremarkable. Mucous membranes are moist. No oral lesions. NECK: Supple. Full range of motion. No adenopathy, thyromegaly or neck vein distention. Cardiovascular examination reveals regular rhythm and rate. S1, S2 normal. Heart sounds are distant. No distinct murmur. Lungs reveal a few scattered crackles. No wheezes, rhonchi. Breath sounds equal. Abdomen is soft. Bowel sounds are heard. Extremities are intact. No cyanosis, clubbing, or edema. Skin without rash. Neurologic examination is brief but nonfocal. LAB DATA: Reviewed. White count 9.4, hemoglobin 12.5, hematocrit 38.2, platelet count 142,000. Sodium is 128, potassium 4.3, chloride 96, CO2 is 23, BUN and creatinine were 18 and 0.93. Microbiologic studies are negative. Medications are reviewed. Chest x-rays reviewed. ASSESSMENT: 1. Ventricular fibrillation, status post defibrillation x2. 2. Congestive heart failure, secondary to above, as well as the patient's known history of familial cardiomyopathy. 3. History of longstanding cardiomyopathy with ejection fraction of 20%-25%. 4. Essential hypertension. 5. Newly discovered hypothyroidism. 6. Congestive hepatopathy. 7. Mild fluid overload state. 8. Rule out sleep apnea syndrome. 9. Possible occult asthma versus cardiac asthma. 10.Hypervolemic hyponatremia. PLAN: The patient is going to continue to receive Lasix. Was switched from IV to oral. He is postop day #1 status post AICD. Chest x-ray in my opinion is improved. No additional recommendations are made. The patient will need outpatient sleep study and outpatient pulmonary function test. Additional recommendations and suggestions are forthcoming. The patient could be transferred out of the unit if approved by Cardiology. MMKYEL / LUANN: [id number] /
--- NOTE | 2018-09-17 11:32 | XR ---
EXAMINATION TYPE: XR ribs RT DATE OF EXAM: 09/17/2018 CLINICAL HISTORY: Pain, Fall Four views of the ribs fail demonstrate evidence for displaced rib fracture or secondary sign of rib fracture. Visualized lungs are clear. No evidence for pneumothorax. IMPRESSION: 1. No displaced rib fractures seen. ICD 10 NO FRACTURE, INITIAL EVALUATION
[2018-09-17 12:16] LABS: Glucose,Whole Blood 111 mg/dL (75-99)
[2018-09-17 17:23] LABS: Glucose,Whole Blood 114 mg/dL (75-99)
--- NOTE | 2018-09-17 18:26 | P.PN ---
Subjective Progress Note Date: 09/17/18 Patient is seen today in the ICU for Neruology follow-up. He has had a AICD placement done yesterday by cardiology. 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 He had a full cardiac arrest and was shocked twice on the scene at home. He was then brought into the emergency room and subsequently admitted to the hospital. He showed good improvement yesterday in the ICU and was showing signs of possible hypoxic encephalopathy which was rapidly improving yesterday as well in the ICU.. The patient went for AICD placement yesterday by cardiology. He is resting comfortably this evening and states the procedure went very well for him. He has had no further episodes of confusion. He has remained very alert and oriented and is able to recognize all family members were present in his room this evening. Overall he seems to be doing very well following AICD procedure which was done yesterday. According to the patient's she is noted he is showing ongoing improvement in his overall medical condition. He is being treated for thyroid disorder. He did complain of some rib pain and underwent x-ray of the ribs which came back negative. Patient is going to be evaluated for possibility of obstructive sleep apnea in the outpatient setting. He was started on Synthroid for treatment of hypothyroidism. His overall neurological status continues to be very stable for his age. The patient states that his memory has remained quite good. The patient has been up and ambulating in the hallway today without any difficulties. He is awaiting transfer to stepdown unit when bed becomes available. We will continue to follow him closely for any further changes in his mental status. His overall prognosis at this time appears to be quite fair. Objective - Vital Signs Vital signs: Vital Signs Temp 98.2 F 09/17/18 16:00 Pulse 67 09/17/18 08:00 Resp 18 09/17/18 16:00 BP 108/76 09/17/18 16:00 Pulse Ox 97 09/17/18 16:00 Intake & Output 09/16/18 09/17/18 09/17/18 18:59 06:59 18:59 Intake Total 220 580 Output Total 1370 1300 1410 Balance -1150 -1300 -830 Weight 99 kg Intake: IV 220 Sodium Chloride 0.9% 1, 20 000 ml @ 20 mls/hr IV . Q24H [facility] Rx#:[id number] Oral 580 Output: Urine 1370 1300 1410 Other: Voiding Method Urinal Urinal Urinal # Voids 1 1 # Bowel Movements 1 - Exam Physical Examination: PHYSICAL EXAMINATION: Patient is resting comfortably in bed. VITAL SIGNS: Blood pressure is [108/77]. Heart rate is [67]. Respiration is [18] . Temperature is [98.2]. HEENT: Head is atraumatic, neck is supple, there were no carotid bruits. CHEST: Lungs are clear to auscultation and percussion. CARDIAC: S1, S2 normal rate and rhythm. There is no murmur. ABDOMEN: Soft and nontender. Bowel sounds are present. EXTREMITIES: There is no pedal edema. Peripheral pulses are present. Neurological examination: Patient's neurological examination is nonfocal at this time. He is alert and oriented x 3 and has no evidence of any recurrent confusion at this time. - Labs CBC & Chem 7: 09/17/18 04:28 09/17/18 04:28 Labs: Abnormal Lab Results - Last 24 Hours (Table) 09/16/18 09/17/18 09/17/18 Range/Units 20:15 04:28 04:28 RBC 4.27 L (4.30-5.90) m/uL Hgb 12.5 L (13.0-17.5) gm/dL Hct 38.2 L (39.0-53.0) % Plt Count 142 L (150-450) k/uL Sodium 128 L (137-145) mmol/L Chloride 96 L (98-107) mmol/L Glucose 111 H (74-99) mg/dL POC Glucose (mg/dL) 134 H (75-99) mg/dL 09/17/18 09/17/18 09/17/18 Range/Units 06:53 12:15 17:22 RBC (4.30-5.90) m/uL Hgb (13.0-17.5) gm/dL Hct (39.0-53.0) % Plt Count (150-450) k/uL Sodium (137-145) mmol/L Chloride (98-107) mmol/L Glucose (74-99) mg/dL POC Glucose (mg/dL) 123 H 111 H 114 H (75-99) mg/dL Assessment and Plan (1) Cardiac arrest Current Visit: Yes Status: Acute Code(s): I46.9 - CARDIAC ARREST, CAUSE UNSPECIFIED SNOMED Code(s): 734123012 (2) Hypoxic encephalopathy Current Visit: Yes Status: Acute Code(s): G93.1 - ANOXIC BRAIN DAMAGE, NOT ELSEWHERE CLASSIFIED SNOMED Code(s): 109159999 (3) Cardiomyopathy Current Visit: Yes Status: Acute Code(s): I42.9 - CARDIOMYOPATHY, UNSPECIFIED SNOMED Code(s): 22457252 (4) Ventricular fibrillation Current Visit: Yes Status: Acute Code(s): I49.01 - VENTRICULAR FIBRILLATION SNOMED Code(s): 30591206 Plan: This patient is a pleasant 57-year-old male who was treated for acute cardiopulmonary arrest and possible hypoxic encephalopathy. He was admitted to the hospital and underwent AICD placement yesterday by cardiology. He made a very quick recovery in his mental status over the last 2 days has continued to improve daily. His was at bedside today and is noted significant improvement for him in terms of his general mood and alertness. He has been up and ambulating today in the hallway with no difficulties. He underwent x-ray of the ribs which came back negative for any rib fracture. He is being treated for thyroid disorder and seems to be tolerating his current regimen quite well. His neurological examination remains nonfocal. We will continue to follow the patient closely in the intensive care unit. His overall prognosis at this time remains very good. Case was discussed with the patient and his at bedside. All of their questions were answered. We will continue close monitoring.
--- NOTE | 2018-09-17 20:02 | P.PN ---
Subjective Progress Note Date: 09/17/18 This is a 57-year-old gentleman with history of nonischemic cardiomyopathy, who was admitted to the hospital with cardiac arrest at home and witnessed ventricular fibrillation. Patient was shocked 2 at home. Patient was evaluated by Dr. BC Mahajan. Patient had a cardiac catheterization yesterday and was found to have normal coronary arteries. His echo showed an ejection fraction about 30-35%.. Patient is advised to have AICD implantation for secondary prevention. Patient and patient's . I explained the details of the procedure, and also risks and benefits of the procedure which they fully understood. His chest x-ray on admission showed findings of CHF. Today x-ray showed improvement. He is currently on IV Lasix. We'll resume his Coreg and beta blockers. Patient is also on amiodarone. Rest of the medication be continued. AICD implantation tomorrow. Patient will kept nothing by mouth after midnight. 09/17/2018: This patient is admitted to the hospital with a cardiac arrest at home with a documented ventricular fibrillation. Patient had AICD implantation yesterday without any incident. Patient has remained stable. He does complain of right-sided chest pain which appeared to be pleuritic. This most probably related to CPR. He chest x-ray showed proper lead position. It showed continued changes of congestive heart failure. Questionable infiltrate in the right side. Patient doesn't have any fever or chills. We'll good continue Lasix IV. Increase activity. We'll also get a rib series to rule out any fracture. Increase activity as tolerated. Possible discharge in the morning. Lab values showed normal electrolytes, kidney functions Objective - Vital Signs Vital signs: Vital Signs Temp 98.2 F 09/17/18 16:00 Pulse 67 09/17/18 08:00 Resp 18 09/17/18 16:00 BP 108/76 09/17/18 16:00 Pulse Ox 95 09/17/18 19:15 Intake & Output 09/17/18 09/17/18 09/18/18 06:59 18:59 06:59 Intake Total 580 Output Total 1300 1910 500 Balance -1300 -1120 -500 Intake: Oral 580 Output: Urine 1300 1910 500 Other: Voiding Method Urinal Urinal # Voids 1 1 # Bowel Movements 1 - Exam GENERAL EXAM: Patient is alert and oriented and doesn't appear to be in any acute distress HEENT: Normocephalic. Normal reaction of pupils, equal size, normal range of extraocular motion. No erythema or exudates in the throat. NECK: No masses, no nuchal rigidity. CHEST: No chest wall deformity. LUNGS: Few scattered rales HEART: S1 and S2 normal with no audible mumurs or gallops. Regular rhythm, femorals equal on both sides.. ABDOMEN: No hepatosplenomegaly, normal bowel sounds, no guarding or rigidity. SKIN: No rashes CENTRAL NERVOUS SYSTEM: No focal deficits. EXTREMITIES: No cyanosis, clubbing or edema. Pacemaker site: Seems to be dry. No evidence of hematoma or ecchymosis - Labs CBC & Chem 7: 09/17/18 04:28 09/17/18 04:28 Labs: Abnormal Lab Results - Last 24 Hours (Table) 09/16/18 09/17/18 09/17/18 Range/Units 20:15 04:28 04:28 RBC 4.27 L (4.30-5.90) m/uL Hgb 12.5 L (13.0-17.5) gm/dL Hct 38.2 L (39.0-53.0) % Plt Count 142 L (150-450) k/uL Sodium 128 L (137-145) mmol/L Chloride 96 L (98-107) mmol/L Glucose 111 H (74-99) mg/dL POC Glucose (mg/dL) 134 H (75-99) mg/dL 09/17/18 09/17/18 09/17/18 Range/Units 06:53 12:15 17:22 RBC (4.30-5.90) m/uL Hgb (13.0-17.5) gm/dL Hct (39.0-53.0) % Plt Count (150-450) k/uL Sodium (137-145) mmol/L Chloride (98-107) mmol/L Glucose (74-99) mg/dL POC Glucose (mg/dL) 123 H 111 H 114 H (75-99) mg/dL Assessment and Plan (1) Cardiac arrest Current Visit: Yes Status: Acute Code(s): I46.9 - CARDIAC ARREST, CAUSE UNSPECIFIED SNOMED Code(s): 719248033 (2) Cardiomyopathy Current Visit: Yes Status: Acute Code(s): I42.9 - CARDIOMYOPATHY, UNSPECIFIED SNOMED Code(s): 42901338 (3) Hypoxic encephalopathy Current Visit: Yes Status: Acute Code(s): G93.1 - ANOXIC BRAIN DAMAGE, NOT ELSEWHERE CLASSIFIED SNOMED Code(s): 228522354 (4) Ventricular fibrillation Current Visit: Yes Status: Acute Code(s): I49.01 - VENTRICULAR FIBRILLATION SNOMED Code(s): 92668881 (5) Acute systolic CHF (congestive heart failure) Current Visit: Yes Status: Acute Code(s): I50.21 - ACUTE SYSTOLIC ( CONGESTIVE) HEART FAILURE SNOMED Code(s): 949343433 Plan: Patient is clinically stable. Chest x-ray shows findings of CHF. Continue with another dose of IV Lasix. Get chest x-ray and lites tomorrow. If stable, patient could be discharged home in a.m.
[2018-09-17 20:37] LABS: Glucose,Whole Blood 111 mg/dL (75-99)
[2018-09-17] MEDS: LOSARTAN 25 MG TAB PO SCH (20:41)
[2018-09-18] MEDS: HEPARIN SODIUM,PORCINE 5,000 UNIT/ML 1 ML VIAL SQ SCH ×2 (02:04→08:05)
[2018-09-18 05:17] LABS: Basophils % (A) 0 %; Eosinophils # (A) 0.1 k/uL (0-0.7); Eosinophils % (A) 2 %; HCT 41.6 % (39.0-53.0); HGB 13.3 gm/dL (13.0-17.5); Lymphocytes # (A) 1.7 k/uL (1.0-4.8); Lymphocytes % (A) 19 %; MCH 28.9 pg (25.0-35.0); MCHC 31.9 g/dL (31.0-37.0); MCV 90.6 fL (80.0-100.0); Mean Platelet Volume 7.7; Monocytes # (A) 0.7 k/uL (0-1.0); Monocytes % (A) 8 %; Neutrophils % (A) 69 %; Platelet Count 159 k/uL (150-450); RBC 4.59 m/uL (4.30-5.90); RDW 13.6 % (11.5-15.5); WBC 8.7 k/uL (3.8-10.6)
[2018-09-18 05:37] LABS: Anion Gap 11 mmol/L; Blood Urea Nitrogen 17 mg/dL (9-20); Calcium 8.9 mg/dL (8.4-10.2); Carbon Dioxide 24 mmol/L (22-30); Chloride 97 mmol/L (98-107); Glucose 100 mg/dL (74-99); Potassium 4.7 mmol/L (3.5-5.1); Sodium 132 mmol/L (137-145)
[2018-09-18 06:21] VITALS: PULSE 78; RESP 16; TEMP 98.5
[2018-09-18 06:58] LABS: Glucose,Whole Blood 113 mg/dL (75-99)
[2018-09-18] MEDS: INSULIN ASPART 100 UNIT/ML 1 ML 10 ML VIAL SQ SCH ×2 (07:12→12:05)
[2018-09-18] MEDS: LEVOTHYROXINE 25 MCG TAB PO SCH (07:16)
[2018-09-18] MEDS ORDERED: PANTOPRAZOLE 40 MG TABLET PO SCH (07:30)
[2018-09-18] MEDS: METOPROLOL TARTRATE 50 MG TAB PO SCH (08:05)
[2018-09-18] MEDS: FUROSEMIDE 40 MG TAB PO SCH (08:05)
[2018-09-18] MEDS: AMIODARONE 200 MG TAB PO SCH (08:05)
[2018-09-18] MEDS: SPIRONOLACTONE 25 MG TAB PO SCH (08:05)
[2018-09-18] MEDS: POTASSIUM CHLORIDE ER 10 MEQ TAB.ER.PRT PO SCH (08:05)
--- NOTE | 2018-09-18 08:32 | P.PN ---
Progress Note - Text The patient is a 57-year-old gentleman with a history of nonischemic cardiomyopathy. Patient presented after an episode of ventricular fibrillation and was brought unresponsive to the emergency room on September 14. Subsequently he had a heart catheterization which revealed fairly normal coronary arteries and has had a AICD placed 2 days ago. Patient generally is feeling better. Denies any unusual shortness of breath. He has some right chest soreness but no angina type pain. No fever or chills. No nausea or vomiting. He is alert and oriented. His initial unresponsiveness and neurological status has improved almost to baseline. Vital signs show a temperature 98.5 with a pulse of 78 and blood pressure 113/ 78. Respirations are 16 and unlabored. Respirations are normal. No unusual edema. He is alert and oriented. Cranial nerves intact. No focal neurological weakness noted. Laboratory CBC was unremarkable. White count 8.7 with hemoglobin 13.3 and a platelet count of 159. Electrolytes were improved with sodium 132 and potassium 4.7. Blood sugar was 100. BUN of 17 with creatinine 0.97 given him a GFR of 86. Calcium was 8.9. Chest x-ray Report is pending but as but it appears to be improved over yesterday with clearing of the cardiac borders and lung kennedy to a certain extent. Impressions and plans Patient generally clinically is improving. Anticipating possible discharge if okay with cardiology later today. Discussed with patient and at bedside.
--- NOTE | 2018-09-18 09:22 | XR ---
EXAMINATION TYPE: XR chest 2V DATE OF EXAM: 09/18/2018 COMPARISON: 09/17/2018 rib study INDICATION: CHF TECHNIQUE: Frontal and lateral views of the chest are obtained. FINDINGS: The heart size is mildly prominent. The pulmonary vasculature is upper limits of normal. Small right pleural effusion may be present. There appears be some improvement of the pulmonary vascu lar prominence from prior study. Pacemaker overlies left chest. IMPRESSION: 1. Small right pleural effusion and/or atelectasis. 2. Improving pulmonary vascular prominence
[2018-09-18 10:10] VITALS: BP 121/89
--- NOTE | 2018-09-18 10:42 | PN ---
PROGRESS NOTE DATE OF SERVICE: 09/18/2018 A 57-year-old male who was seen in consultation a few days back. He is postop day #2, status post AICD placement. It was placed because of severe cardiomyopathy and ventricular fibrillation. The patient is doing better today. He has been weaned off of oxygen. Not receiving any IV fluids. His chest x-ray today is improved. His ejection fraction on his most recent echocardiogram was 20%-25%. His catheterization was clean. His primary carbon paper coating supervisor is Dr. Adame and he also sees a [facility] cardiologists by the name of Viktor Pelletier. The patient may be discharged home today, not sure. The chest x-ray as I had mentioned is near normal now. Current vital signs are reviewed, temperature is 98.5, heart rate 78, respiratory rate is 16, blood pressure 113/78, mean 89. Saturations are 95%-98% on room air. Appears in no acute distress. HEENT examination is grossly unremarkable. Neck is supple. Full range of motion. No adenopathy. Cardiovascular examination reveals regular rhythm and rate. Lungs reveal relatively clear breath sounds. No wheezes or rhonchi. Abdomen is soft. Bowel sounds are heard. Extremities are intact. No cyanosis, clubbing, or edema. Skin without rash. Neurologic examination is brief but nonfocal. LABS: Reviewed. CBC is completely normal. Sodium 132, potassium 4.7, chloride 97, CO2 of 24. BUN and creatinine were 17 and 0.97. Calcium 8.9. Microbiology is negative. Chest x-rays reviewed. Medications are reviewed. ASSESSMENT: 1. Ventricular fibrillation, status post defibrillation x2. 2. Congestive heart failure, secondary to above, as well as the patient's known history of familial cardiomyopathy. 3. History of longstanding cardiomyopathy with ejection fraction of 20%-25%. 4. History of essential hypertension. 5. Newly discovered hypothyroidism. 6. Congestive hepatopathy. 7. Mild fluid overload state, improved. 8. Rule out sleep apnea syndrome. 9. Possible occult asthma versus cardiac asthma. 10.Mild hypervolemic hyponatremia. PLAN: The patient may be discharged today. No additional recommendations are made. The patient will see me in the office for a pulmonary function test. Will get him set up for a sleep study, either at the [facility] or in-home sleep study. Additional recommendations and suggestions are forthcoming. Prognosis is guarded. MMODL / IJN: [id number] /
[2018-09-18 12:05] LABS: Glucose,Whole Blood 101 mg/dL (75-99)
--- NOTE | 2018-09-18 12:21 | P.PN ---
Subjective Patient is doing well. He is sitting up comfortably in a chair. No dizziness lightheadedness no chest pain. The ICD site is healed well and is minimal swelling and minimal soakage On examination his heart sounds are normal and regular Breath sounds are clear there is no rhonchi no crackles Abdomen soft nontender Extremities are warm No JVD Blood pressure 120 10 89 mmHg Pulse rate in the 70s Impression Known nonischemic cardio myopathy with congestive heart failure presented with ventricular tachyarrhythmia Status post ICD implant for secondary prevention of sudden cardiac From a cardiac standpoint the patient may go to telemetry or even be discharged from the ICU. He should be and spironolactone losartan and metoprolol Lasix and is currently on oral amiodarone He will follow Dr. Adame and his amiodarone dose should be steadily reduced as an outpatient Beta blockers maximize as an outpatient Objective - Vital Signs Vital signs: Vital Signs Temp 98.5 F 09/18/18 04:00 Pulse 78 09/18/18 05:00 Resp 16 09/18/18 05:00 BP 121/89 09/18/18 08:00 Pulse Ox 95 09/17/18 20:00 Intake & Output 09/17/18 09/18/18 09/18/18 18:59 06:59 18:59 Intake Total 580 750 Output Total 1910 1375 Balance -1330 -1375 750 Intake: Oral 580 750 Output: Urine 1910 1375 Other: Voiding Method Urinal Urinal # Voids 1 1 2 # Bowel Movements 1 - Labs CBC & Chem 7: 09/18/18 04:10 09/18/18 04:10 Labs: Abnormal Lab Results - Last 24 Hours (Table) 09/17/18 09/17/18 09/18/18 Range/Units 17:22 20:35 04:10 Sodium 132 L (137-145) mmol/L Chloride 97 L (98-107) mmol/L Glucose 100 H (74-99) mg/dL POC Glucose (mg/dL) 114 H 111 H (75-99) mg/dL 09/18/18 09/18/18 Range/Units 06:56 12:04 Sodium (137-145) mmol/L Chloride (98-107) mmol/L Glucose (74-99) mg/dL POC Glucose (mg/dL) 113 H 101 H (75-99) mg/dL
--- NOTE | 2018-09-18 13:24 | DS ---
DISCHARGE SUMMARY Mr. Davis is a 57-year-old gentleman. The patient presented to the emergency room and admitted to the intensive care unit on 09/14. Dr. Berrios was data governance consultant for me in my absence. The patient presented restless and nonresponding initially to the emergency room after being found that morning to be unresponsive by his . EMS was called and found patient to be in ventricular fibrillation and defibrillated apparently x2 and was brought to the emergency room. There he continued to be agitated and confused, but did not have to be intubated. Testing revealed initial blood sugar of 231. His TSH was somewhat elevated at 6.25 and liver function tests were elevated with an AST of 158 and a ALT of 142. Creatinine was 1.26. Electrolytes initially were unremarkable. CBC was unremarkable. His EKG showed poor R-wave progression in V1 and V2, but no definite acute myocardial infarction and further troponins were negative. Radiologic studies were performed with a CAT scan and chest x-ray. The brain CAT scan showed no acute intracranial hemorrhage or shift. There was some atrophy noted. Chest x-ray showed findings consistent with congestive heart failure with increased markings. Subsequent echocardiogram was performed which did show left ventricular hypokinesis consistent with his history of ischemic cardiomyopathy. Left atrium was also dilated greater than 40 mL. No major valvular disease was found. Right ventricular systolic pressure was less than 35 and no evidence of pulmonary hypertension. Aortic root was normal. His ejection fraction though was low at 20% to 25%. The patient was seen by Dr. Marry Mahajan from Cardiology and a cardiac catheterization was undertaken, which revealed minimal coronary artery disease. The patient subsequently underwent AICD placement and he was placed on amiodarone. The patient clinically was diuresed with improvement in his chest x-ray and clinical symptoms. Neurologically, he improved. He was seen by Dr. Estevez from Neurology and please see his notes. He was also seen by Dr. Timmons from pulmonary medicine and Dr. Larsen from Cardiology and please refer to their respective consults and progress notes. With continued improvement, plans now are to discharge to home and he will be maintained on his amiodarone 400 mg twice a day until further adjustments per Cardiology, furosemide _40mg daily, levothyroxine will be increased to 50 mcg once a day, losartan 25 mg at bedtime, metoprolol 50 mg twice a day, potassium chloride 10 mEq daily and spironolactone 25 mg daily. He is not to take his previous home medications, enalapril and Coreg and follow up in office within 7 days. Follow up also with Cardiology. It is also recommended that he follow up with sleep apnea studies done along with follow up for his thyroid. FINAL DIAGNOSES BEIN. Acute presentation of cardiac arrest with ventricular fibrillation status post cardioversion x2 in the field. 2. Anoxic encephalopathy, which has been resolving. 3. History of ischemic cardiomyopathy. 4. History of previous supraventricular tachycardias. 5. History of hypertension. 6. Acute on chronic systolic congestive heart failure. 7. Hypothyroidism, on replacement therapy. 8. Transient hyponatremia. At this point, diet and activities as tolerated. Follow up with Cardiology and myself over the next 7 days. Medications as stated above. Return to the ER if any sudden major symptoms develop or call if any concerns or problems. MMODL / IJN: [id number] / MTDD
== END 2018-09-18 15:16 | disposition home health service (06) | DRG 224 ==
LOC: EC 07:20 → 2SICU 09:12
PROVIDERS: ADMIT Internal Medicine; ATTEND Internal Medicine
PROC: B2111ZZ Fluoroscopy of Multiple Coronary Arteries using Low Osmolar Contrast (ICD-10-PCS; principal; 2018-09-14 11:50)
PROC: 4A023N7 Measurement of Cardiac Sampling and Pressure, Left Heart, Percutaneous Approach (ICD-10-PCS; principal; 2018-09-14 11:50)
PROC: 0JH608Z Insertion of Defibrillator Generator into Chest Subcutaneous Tissue and Fascia, Open Approach (ICD-10-PCS; 2018-09-16 11:30)
PROC: 5A2204Z Restoration of Cardiac Rhythm, Single (ICD-10-PCS; 2018-09-16 11:30)
PROC: 02HL3KZ Insertion of Defibrillator Lead into Left Ventricle, Percutaneous Approach (ICD-10-PCS; 2018-09-16 11:30)
DX: I49.01 Ventricular fibrillation (principal); I50.21 Acute systolic (congestive) heart failure; E87.1 Hypo-osmolality and hyponatremia; G93.1 Anoxic brain damage, not elsewhere classified; E03.9 Hypothyroidism, unspecified; E78.5 Hyperlipidemia, unspecified; I11.0 Hypertensive heart disease with heart failure; I42.0 Dilated cardiomyopathy; I47.2 Ventricular tachycardia; I48.91 Unspecified atrial fibrillation; K75.9 Inflammatory liver disease, unspecified; K76.0 Fatty (change of) liver, not elsewhere classified; K76.1 Chronic passive congestion of liver; R09.02 Hypoxemia; Z80.8 Family history of malignant neoplasm of other organs or systems; Z82.5 Family history of asthma and other chronic lower respiratory diseases; Z79.899 Other long term (current) drug therapy
CPT/HCPCS: 33249; 36415; 51702; 70450; 71045; 71046; 80048; 80053; 80306; 81001; 82550; 82553; 83036; 83735; 84100; 84439; 84443; 84481; 84484; 85025; 85610; 85730; 93005; 93306; 93458; 93641; 94640; 96365; 96374; 96375; 99291

== ENCOUNTER 2018-10-01 10:23 | Day surgery (SDC) | payer BC ==
[2018-09-30 08:41] VITALS: BMI 28.3
[~2018-10-01 10:23] MED LIST: ATROPINE SULFATE 0.4 MG/ML 1 ML VIAL IM ONE; LACTATED RINGERS 1,000 ML IV SCH; LIDOCAINE 1% 20 ML VIAL (10MG/ML) FOR IV START INTRADERMA PRN; LIDOCAINE HCL/PF 20 MG/ML ML INHALATION ONE; LIDOCAINE VISCOUS 2% 15 ML CUP MUCOUS MEM ONE; SODIUM CHLORIDE 0.9% 1,000 ML IV SCH
[2018-10-01 10:52] VITALS: RESP 16; TEMP 98.6
[2018-10-01 11:17] LABS: Glucose,Whole Blood 102 mg/dL (75-99)
[2018-10-01] MEDS ORDERED: LIDOCAINE 1% INJ 10MG/ML (20 ML MDV) ONE (11:34)
[2018-10-01] MEDS ORDERED: MIDAZOLAM 2 MG/2 ML VIAL ONE (11:34)
[2018-10-01] MEDS ORDERED: KETAMINE 10 MG/ML 20 ML VIAL ONE (11:34)
[2018-10-01] MEDS ORDERED: GLYCOPYRROLATE 0.2 MG/ML 2 ML VIAL ONE (11:34)
[2018-10-01] MEDS ORDERED: fentaNYL (PF) 50 MCG/ML 2 ML AMP ONE (11:34)
[2018-10-01] MEDS ORDERED: PROPOFOL 10 MG/ML 20 ML VIAL IV ONE (11:34)
[2018-10-01] MEDS ORDERED: LIDOCAINE 2% INJ 20 MG/ML INTRATRACH ONE (11:46)
--- NOTE | 2018-10-01 12:22 | PCN ---
PROCEDURE NOTE PROCEDURE NOTE: Bronchoscopy, airway examination, therapeutic lavage, BAL right middle lobe. PREOPERATIVE DIAGNOSIS: Upper airway irritation, rule out obstruction/tumor. POSTOP DIAGNOSIS: Upper airway irritation, rule out obstruction/tumor. There was informed consent. There was universal timeout. Anesthesia provided general anesthesia, unconscious sedation. The patient's procedure was done in room #2. The operators were Dr. Timmons and Dr. Sheridan. After the patient was adequately sedated and being fully monitored, the bronchoscope was inserted through the right nostril. It passed through the right nasopharynx into the oropharynx. The hypopharynx was identified. Anterior commissure, true cords, false cords, piriform sinuses, vallecula, epiglottis all appeared normal. We did notice that the arytenoids were a little inflamed. They seemed a bit larger than normal. There was no obvious mass or polyp or anything like that. The glottic opening was topicalized and the bronchoscope was pushed through the glottic opening into the trachea. Trachea appeared normal. Trachea rosalia was sharp. Next, there was topicalization of the right mainstem and left mainstem. The right upper lobe and its three segments, the right middle lobe and its two segments, the right lower lobe and its five segments, the left upper lobe proper and its two segments, lingula and its two segments and left lower lobe and its four segments all had very similar findings. There was some mild to moderate bronchitis noted. It was more lower lobe and it appeared that the lower lobe bronchitis was a bit more significant. Airways were inflamed. There was erythema, hyperemia, and there was some vascular engorgement. Minimal secretions and they were thin. There was no dominant mass or tumor, although there was some irregularity to the mucosa on entering into the right upper lobe. This is probably just a normal variant. The mucosa did not look angry or abnormal in any way. We did end up doing a BAL in the right middle lobe. The patient tolerated the procedure well. This fluid will be sent for analysis. There was no immediate complication. The patient will be recovered. MMODL / IJN: [id number] /
[2018-10-01 12:23] VITALS: BP 118/83; PULSE 66
[2018-10-01 15:59] LABS: Appearance,BF Cloudy; Color,BF Colorless
[2018-10-01 17:50] LABS: Nucleated Cells, Body Fluid 80 /uL; RBC, Body Fluid 79 /uL
[2018-10-01 17:52] LABS: Mononuclear WBC,Body Fluid 91 %; Polynuclear WBC,Body Fluid 9 %; Total Cells Counted,Body Fluid 100
== END 2018-10-01 12:51 | disposition home or self-care (01) ==
LOC: ORWHC2ENDO 10:23
PROVIDERS: ATTEND Internal Medicine Critical Care Medicine
DX: J40 Bronchitis, not specified as acute or chronic (principal); E03.9 Hypothyroidism, unspecified; I42.9 Cardiomyopathy, unspecified; I49.01 Ventricular fibrillation; I10 Essential (primary) hypertension; Z95.810 Presence of automatic (implantable) cardiac defibrillator; Z79.890 Hormone replacement therapy; Z79.899 Other long term (current) drug therapy
CPT/HCPCS: 94640; 87798 ×3; 87496; 87498; 87529 ×2; 88108; 88305; 89050; 87252; 87502; 87634; 87070; 87205; 87116; 87102; 87206; 31624; J2001 ×3; J2250; J3010; J2704

== ENCOUNTER 2018-11-16 23:43 | Observation (INO) | payer BC ==
[2018-11-17] MEDS ORDERED: SODIUM CHLORIDE 0.9% 1,000 ML IV STA (00:36)
[2018-11-17] MEDS ORDERED: ASPIRIN 81 MG PO STA (00:36)
--- NOTE | 2018-11-17 00:37 | ED ---
General Adult HPI - General Chief complaint: Upper Respiratory Infection Stated complaint: THUY Time Seen by Provider: 11/17/18 00:31 Source: patient Mode of arrival: ambulatory Limitations: no limitations - History of Present Illness Initial comments: Patient is a 57-year-old gentleman with a history which is most significant for the failed cardiac arrest on 2017, patient was successfully defibrillated 5 days in the hospital and was discharged home neurologically intact with AICD in place. Patient reports that for the past 2-3 years she's been experiencing a sensation of fullness or gurgling in his throat, he has been evaluated by pulmonology and had a bronchoscopy which revealed some inflammation in his upper airway, and addition he has been diagnosed with obstructive sleep apnea he currently is awaiting his appointment next week for CPAP fitting and titration. Patient reports that he's been feeling well until approximately 9 PM this evening at which time he began to feel as if there were gurgling or fullness in his throat. Patient reports he didn't have any trouble breathing or feel short of breath but felt like there was fluid in his throat and was worried because he had the sensation constantly prior to his previous cardiac arrest. Patient does admit that he has been noted advised that he has severe GERD and should be on a bland diet and he does admit that he had some salsa with dinner this evening which she thinks may be relating to his symptoms. Patient reports after his symptoms developed he took a Prilosec he also tried coughing and was minimally productive. At the time of arrival in the emergency department his symptoms have subsided but considering his very significant cardiac history he wanted to be evaluated. - Related Data Home Medications Medication Instructions Recorded Confirmed Amiodarone [Cordarone] 200 mg PO BID 09/30/18 10/01/18 Furosemide [Lasix] 20 mg PO DAILY 09/30/18 10/01/18 Previous Rx's Medication Instructions Recorded Levothyroxine Sodium [Synthroid] 50 mcg PO DAILY #30 tab 09/18/18 Losartan [Cozaar] 25 mg PO DAILY #30 tab 09/18/18 Metoprolol Tartrate [Lopressor] 50 mg PO BID #60 tab 09/18/18 Potassium Chloride [K-Tab ER] 10 meq PO DAILY #30 tablet.er 09/18/18 Spironolactone 25 mg PO DAILY #30 tablet 09/18/18 Allergies Allergy/AdvReac Type Severity Reaction Status Date / Time No Known Allergies Allergy Verified 11/16/18 23:58 Review of Systems ROS Statement: Those systems with pertinent positive or pertinent negative responses have been documented in the HPI. ROS Other: All systems not noted in ROS Statement are negative. 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 Cardiac arrest on 09/08 History of Any Multi-Drug Resistant Organisms: None Reported Past Surgical History: Appendectomy, Orthopedic Surgery Additional Past Surgical History / Comment(s): Arthroscopy on knee, colonoscopy Past Anesthesia/Blood Transfusion Reactions: No Reported Reaction Past Psychological History: No Psychological Hx Reported Smoking Status: Never smoker Past Alcohol Use History: None Reported Past Drug Use History: None Reported - Past Family History Father Family Medical History: Cancer Additional Family Medical History / Comment(s): Father at the age of 36yrs from bone cancer. Mother Family Medical History: COPD Additional Family Medical History / Comment(s): Mother has heart valve issues. She is 82 yrs old. General Exam - General Exam Comments Initial Comments: Physical Exam GENERAL: Patient is well-developed and well-nourished. Patient is nontoxic and well- hydrated and is in no distress. HENT: Normocephalic, Atraumatic. EYES: PERRL, EOMI PULMONARY: Unlabored respirations. No audible rales rhonchi or wheezing was noted. CARDIOVASCULAR: There is a regular rate and rhythm without any murmurs gallops or rubs. All healed scar in the left upper chest consistent with AICD placement ABDOMEN: Soft and nontender with normal bowel sounds. SKIN: Skin is clear with no lesions or rashes and otherwise unremarkable. : Deferred NEUROLOGIC: Patient is alert and oriented x3. Moving all extremities spontaneously MUSCULOSKELETAL: Normal extremities with adequate strength and full range of motion. No lower extremity swelling or edema. No calf tenderness. PSYCHIATRIC: Normal psychiatric evaluation. Limitations: no limitations Limitations: no limitations Course Vital Signs 11/16/18 23:55 Temperature 97.9 F Pulse Rate 55 L Respiratory 20 Rate Blood Pressure 124/85 O2 Sat by Pulse 95 Oximetry EKG Findings - EKG Comments: EKG Findings:: EKG was obtained at 12:08 AM, rate is 65 rhythm is sinus with leftward axis, there is an incomplete left bundle branch block and prolonged QT , [place] is 160, QRS is 116, QTC is 476. There are no acute ST elevations or depressions there is no evidence of acute ischemia or infarction. Previous EKG was on 09/14/2018 and was significantly abnormal due to being immediately post cardiac arrest therefore not reliable for comparison. Medical Decision Making - Medical Decision Making Patient was seen and evaluated history was obtained from patient and review of medical record This patient has a significant cardiac history including a V. fib arrest on 2017 patient has an implanted AICD Patient presenting with shortness of breath and a feeling of congestion in his chest Chest x-ray reveals possible right lower lobe infiltrate Labs reveal a significantly elevated BNP there is no previous in our system for comparison however the patient reports he's been followed at [facility] and his BNP is usually in the 200s, at this time I do feel the patient requires further evaluation for heart failure and possible pneumonia patient care was discussed with his primary care physician who agrees with plan for observing the patient with a consult to cardiology and pulmonology as the patient has established care with pulmonology. Admission orders were placed the patient was updated. She remained hemodynamically stable throughout his emergency department visit - Lab Data Result diagrams: 11/17/18 00:53 11/17/18 00:53 Lab Results 11/17/18 11/17/18 11/17/18 Range/Units 00:53 00:53 00:53 WBC 9.8 (3.8-10.6) k/uL RBC 4.98 (4.30-5.90) m/uL Hgb 14.6 (13.0-17.5) gm/dL Hct 44.9 (39.0-53.0) % MCV 90.2 (80.0-100.0) fL MCH 29.3 (25.0-35.0) pg MCHC 32.5 (31.0-37.0) g/dL RDW 13.8 (11.5-15.5) % Plt Count 202 (150-450) k/uL Neutrophils % 70 % Lymphocytes % 22 % Monocytes % 6 % Eosinophils % 2 % Basophils % 1 % Neutrophils # 6.8 (1.3-7.7) k/uL Lymphocytes # 2.1 (1.0-4.8) k/uL Monocytes # 0.5 (0-1.0) k/uL Eosinophils # 0.2 (0-0.7) k/uL Basophils # 0.1 (0-0.2) k/uL PT (9.0-12.0) sec INR (<1.2) APTT (22.0-30.0) sec Sodium 133 L (137-145) mmol/L Potassium 4.6 (3.5-5.1) mmol/L Chloride 101 (98-107) mmol/L Carbon Dioxide 24 (22-30) mmol/L Anion Gap 8 mmol/L BUN 25 H (9-20) mg/dL Creatinine 1.23 (0.66-1.25) mg/dL Est GFR (CKD-EPI)AfAm 74 (>60 ml/min/1.73 sqM) Est GFR (CKD-EPI)NonAf 64 (>60 ml/min/1.73 sqM) Glucose 120 H (74-99) mg/dL Calcium 9.5 (8.4-10.2) mg/dL Magnesium 2.1 (1.6-2.3) mg/dL Total Bilirubin 1.2 (0.2-1.3) mg/dL AST 25 (17-59) U/L ALT 38 (21-72) U/L Alkaline Phosphatase 80 (38-126) U/L Troponin I (0.000-0.034) ng/mL NT-Pro-B Natriuret Pep 3180 pg/mL Total Protein 6.9 (6.3-8.2) g/dL Albumin 4.1 (3.5-5.0) g/dL 11/17/18 11/17/18 Range/Units 00:53 00:53 WBC (3.8-10.6) k/uL RBC (4.30-5.90) m/uL Hgb (13.0-17.5) gm/dL Hct (39.0-53.0) % MCV (80.0-100.0) fL MCH (25.0-35.0) pg MCHC (31.0-37.0) g/dL RDW (11.5-15.5) % Plt Count (150-450) k/uL Neutrophils % % Lymphocytes % % Monocytes % % Eosinophils % % Basophils % % Neutrophils # (1.3-7.7) k/uL Lymphocytes # (1.0-4.8) k/uL Monocytes # (0-1.0) k/uL Eosinophils # (0-0.7) k/uL Basophils # (0-0.2) k/uL PT 11.1 (9.0-12.0) sec INR 1.0 (<1.2) APTT 25.8 (22.0-30.0) sec Sodium (137-145) mmol/L Potassium (3.5-5.1) mmol/L Chloride (98-107) mmol/L Carbon Dioxide (22-30) mmol/L Anion Gap mmol/L BUN (9-20) mg/dL Creatinine (0.66-1.25) mg/dL Est GFR (CKD-EPI)AfAm (>60 ml/min/1.73 sqM) Est GFR (CKD-EPI)NonAf (>60 ml/min/1.73 sqM) Glucose (74-99) mg/dL Calcium (8.4-10.2) mg/dL Magnesium (1.6-2.3) mg/dL Total Bilirubin (0.2-1.3) mg/dL AST (17-59) U/L ALT (21-72) U/L Alkaline Phosphatase (38-126) U/L Troponin I <0.012 (0.000-0.034) ng/mL NT-Pro-B Natriuret Pep pg/mL Total Protein (6.3-8.2) g/dL Albumin (3.5-5.0) g/dL Disposition Clinical Impression: Right lower lobe pneumonia, CHF (congestive heart failure) Disposition: ADMITTED IP TO THIS HOSP Condition: Stable Is patient prescribed a controlled substance at d/c from ED?: No Referrals: Shubham Stephenson MD [Primary Care Provider] - 1-2 days
[2018-11-17 01:07] LABS: Basophils # (A) 0.1 k/uL (0-0.2); Basophils % (A) 1 %; Eosinophils # (A) 0.2 k/uL (0-0.7); Eosinophils % (A) 2 %; HCT 44.9 % (39.0-53.0); HGB 14.6 gm/dL (13.0-17.5); Lymphocytes # (A) 2.1 k/uL (1.0-4.8); Lymphocytes % (A) 22 %; MCH 29.3 pg (25.0-35.0); MCHC 32.5 g/dL (31.0-37.0); MCV 90.2 fL (80.0-100.0); Mean Platelet Volume 7.6; Monocytes # (A) 0.5 k/uL (0-1.0); Monocytes % (A) 6 %; Neutrophils # (A) 6.8 k/uL (1.3-7.7); Neutrophils % (A) 70 %; Platelet Count 202 k/uL (150-450); RBC 4.98 m/uL (4.30-5.90); RDW 13.8 % (11.5-15.5); WBC 9.8 k/uL (3.8-10.6)
[2018-11-17 01:16] LABS: Albumin 4.1 g/dL (3.5-5.0); Calcium 9.5 mg/dL (8.4-10.2); Magnesium 2.1 mg/dL (1.6-2.3); Potassium 4.6 mmol/L (3.5-5.1); Total Bilirubin 1.2 mg/dL (0.2-1.3); Total Protein 6.9 g/dL (6.3-8.2)
[2018-11-17 01:18] LABS: Partial Thromboplastin Time 25.8 sec (22.0-30.0); Prothrombin Time 11.1 sec (9.0-12.0)
--- NOTE | 2018-11-17 01:44 | XR ---
EXAM: XR Chest, 2 Views CLINICAL HISTORY: ITS.REASON XR Reason: Chest Pain TECHNIQUE: Frontal and lateral views of the chest. COMPARISON: No relevant prior studies available. FINDINGS: Lungs: Possible infiltrate in the mid to lower right lung. Pleural space: Unremarkable. No pneumothorax. Heart: Unremarkable. No cardiomegaly. Mediastinum: Unremarkable. Bones/joints: No acute fracture. IMPRESSION: Possible infiltrate in the mid to lower right lung.
[2018-11-17] MEDS ORDERED: FUROSEMIDE 10 MG/ML 4 ML VIAL IV STA (03:43)
[2018-11-17] MEDS ORDERED: AZITHROMYCIN 500 MG TAB PO STA (03:45)
[2018-11-17] MEDS ORDERED: LEVOTHYROXINE 50 MCG TAB PO SCH (06:30)
[2018-11-17 07:21] VITALS: RESP 18
[2018-11-17] MEDS ORDERED: SPIRONOLACTONE 25 MG TAB PO SCH (09:00)
[2018-11-17] MEDS ORDERED: METOPROLOL TARTRATE 50 MG TAB PO SCH (09:00)
[2018-11-17] MEDS ORDERED: LOSARTAN 25 MG TAB PO SCH ×2 (09:00→21:00)
[2018-11-17] MEDS ORDERED: AMIODARONE 200 MG TAB PO SCH ×2 (09:00)
--- NOTE | 2018-11-17 09:53 | P.HPIM ---
History of Present Illness Chief complaint Upper airway congestion and shortness of breath. Upper chest discomfort. History of present illness The patient is a 57-year-old gentleman who has a history of cardiac arrest with ventricular tachycardia back in August of last year. The patient underwent at that time defibrillation and placement of an AICD. He has had underlying cardiomyopathy and followed by cardiology in [place] and here locally. The patient has also had recent pulmonary and sleep apnea evaluation. He has generally been doing well with his activities levels. No exertional chest pain. Symptoms started approximately 9 p.m. evening of admission as he was lying on his couch. He had to get up suddenly and was short of breath with upper chest discomfort. [place] he had phlegm and a stroke. Apparently he heard a noise in his chest. Therefore he came to the emergency room. Past medical history Cardiomyopathy, non-ischemic Cardiac arrest in August 2018 with ventricular fibrillation and status post AICD placement. History of intermittent asthma Previous supraventricular tachyarrhythmias Hypertension Chronic systolic congestive heart failure Hypothyroidism on replacement therapy Sleep apnea Likely gastroesophageal reflux disease. No known ALLERGIES Home medications Amiodarone 200 mg daily Levothyroxine 50 g daily Losartan 25 mg Metoprolol 50 mg twice a day Spironolactone 25 mg daily Omeprazole, Prilosec OTC 20 mg at at bedtime when necessary Acetaminophen when necessary for pain Review of systems Basically as mentioned in history of present illness No complaints of headache or visual disturbances. No exertional chest pain. Mild cough with some slight discolored phlegm intermittently. No fever or chills. No nausea vomiting. No urinary or bowel symptoms. No blood in his stool. No unusual edema. Social history The patient is a manager [employer] and lives locally with his . No excessive alcohol intake or smoking. Family history Father in his 30s. History of bone cancer Mother with COPD still living in her 80s. 4 brothers with 3 with history of cardiomyopathy. Physical examination The patient is alert and oriented, sitting up in bed. In no acute distress. Alert and pleasant. Vital signs show temperature 98.8 with a pulse of 57 respirations 18. Blood pressure 95/56 and he is 95% saturated on room air. Head and neck exam is unremarkable. Extraocular movements are intact. Neck is not stiff. No adenopathy or thyromegaly detected. Lungs did reveal some mild wheeze left upper anterior lung field. Otherwise clear. Heart tones are regular without murmurs or rubs. Abdomen soft and nontender. Extremities reveal no edema or tenderness. Neurologic exam reveals some to be alert and oriented. Cranial nerves intact. No focal peripheral weakness noted. Laboratory CBC unremarkable with a white count 9.8, hemoglobin 14.6, and platelet count 202. INR was 1.0. Sodium was 133 with potassium 4.6 and a CO2 content 24. BUN 25 with creatinine 1.23 given him a GFR of 64. Random blood sugar was 120. Liver function tests were all good with an albumin of 4.1. Troponin was less than 0.012 BNP is elevated at 3180. A chest x-ray showed a possible ventral infiltrate in the mid to lower right lung field. EKG shows a normal sinus rhythm. Consistent with left atrial enlargement. Incomplete left bundle-branch block with nonspecific T-wave changes. Her QT was felt to be prolonged at 458 ms. Impressions Episode of chest congestion and likely wheeze. Her asthma with acute exacerbation. Question secondary to underlying upper respiratory tract infection versus gastroesophageal reflux. Question underlying congestive heart failure. Randomly elevated BNP value. History of mild asthma. Cardiomyopathy, nonischemic. Sleep apnea Possible gastroesophageal reflux History of ventricular tachycardia with cardiac arrest in August 2018. Last AICD placement Hypothyroidism on replacement therapy Hypertension Plans discussed with patient and at bedside. Discussed with cardiology. Presently his been placed on antibiotics. Also received 1 dose of Lasix. We'll continue proton pump inhibitor. Cardiology and pulmonary consultations have been placed. Continue to monitor and gradually ambulate patient. Further recommendations pending cardiology and pulmonary consults. 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 Cardiac arrest on 09/08 History of Any Multi-Drug Resistant Organisms: None Reported Past Surgical History: Appendectomy, Orthopedic Surgery Additional Past Surgical History / Comment(s): Arthroscopy on R knee medial meniscus, colonoscopy, fustualopy in 1991 Past Anesthesia/Blood Transfusion Reactions: No Reported Reaction Smoking Status: Never smoker - Past Family History Father Family Medical History: Cancer Additional Family Medical History / Comment(s): Father at the age of 39 yrs from bone cancer. Mother Family Medical History: COPD Additional Family Medical History / Comment(s): Mother has heart valve issues. She is 82 yrs old. Medications and Allergies Home Medications Medication Instructions Recorded Confirmed Type Levothyroxine Sodium [Synthroid] 50 mcg PO DAILY #30 tab 09/18/18 11/17/18 Rx Metoprolol Tartrate [Lopressor] 50 mg PO BID #60 tab 09/18/18 11/17/18 Rx Spironolactone 25 mg PO DAILY #30 tablet 09/18/18 11/17/18 Rx Acetaminophen [Tylenol Extra 500 mg PO BID PRN 11/17/18 11/17/18 History Strength] Amiodarone [Cordarone] 200 mg PO DAILY 11/17/18 11/17/18 History Losartan [Cozaar] 25 mg PO HS 11/17/18 11/17/18 History Omeprazole Magnesium [PriLOSEC OTC] 20 mg PO HS PRN 11/17/18 11/17/18 History Allergies Allergy/AdvReac Type Severity Reaction Status Date / Time No Known Allergies Allergy Verified 11/17/18 08:07 Physical Exam Vitals: Vital Signs Temp Pulse Pulse Resp BP BP Pulse Ox 11/17/18 08:00 57 L 18 11/17/18 07:27 95 11/17/18 07:15 98.8 F 57 L 18 95/56 95 11/17/18 06:05 16 11/17/18 05:01 98.6 F 60 16 108/70 94 L 11/17/18 03:57 62 16 127/86 100 11/17/18 02:57 68 16 122/80 100 11/16/18 23:55 97.9 F 55 L 20 124/85 95 Intake and Output 11/16/18 11/17/18 11/17/18 22:59 06:59 14:59 Other: # Voids 1 Weight 93.44 kg Results CBC & Chem 7: 11/17/18 00:53 11/17/18 00:53 Labs: Abnormal Lab Results - Last 24 Hours (Table) 11/17/18 Range/Units 00:53 Sodium 133 L (137-145) mmol/L BUN 25 H (9-20) mg/dL Glucose 120 H (74-99) mg/dL Thrombosis Risk Factor Assmnt - Choose All That Apply Each Factor Represents 1 point: Age 41-60 years Thrombosis Risk Factor Assessment Total Risk Factor Score: 1 Thrombosis Risk Factor Assessment Level: Low Risk
--- NOTE | 2018-11-17 10:08 | P.CRDCN ---
History of Present Illness History of present illness: This is a pleasant 57-year-old male past medical history significant for nonischemic cardiomyopathy, ventricular fibrillation, status post implantation of AICD 08/2018 and hypertension. He follows in the office with Dr. Adame. We have been asked to see him in consultation secondary to heart failure. He presented to the hospital last evening with symptoms of wheezing and a full gurgling sensation in his throat just at the base of his neck. He denies any symptoms of chest discomfort, he has had no increased shortness of breath, no dizziness or palpitations. He recently underwent a sleep study and was diagnosed with significant obstructive sleep apnea and is currently awaiting CPAP fitting and titration in the next couple of weeks. He recently underwent a bronchoscopy in September per Dr. Timmons which revealed no significant lung abnormality however significant erythema noted in the esophagus. At that time he was recommended to take Prilosec for a couple of weeks. Once he finished the course of 2 weeks his symptoms of fullness in his throat returned. So he went to the store and again started priloesec for another 2 weeks just finished a few days ago. He also describes a daily productive cough with yellow sputum. He denies fever or chills at home. He presented to the hospital September 14 and cardiac arrest and was noted to be in ventricular fibrillation and underwent defibrillation multiple times. Subsequently thereafter he underwent cardiac catheterization revealing normal coronary arteries with an ejection fraction of 20%. EKG reveals sinus mechanism with an incomplete left bundle branch block and nonspecific flattened T waves noted in the lateral leads. Chest x-ray reveals evidence of a possible infiltrate in the mid to lower right lung. No overt heart failure noted. Laboratory data reviewed, WBC 9.8, hemoglobin 14.6, platelets 202, sodium 133, potassium 4.6, creatinine 1.23, magnesium 2.1, cardiac enzymes negative 1, NT proBNP 3180. Current cardiac medications include Aldactone 25 mg daily, Lopressor 50 mg's twice a day, losartan 25 mg daily, amiodarone 200 mg daily. Most recently in the office October 22 he underwent a repeat echocardiogram which revealed global hypokinesia with an ejection fraction of 40%, mild TR and moderate MR noted. At the time of my exam: CONSTITUTIONAL: Denies fever. Denies chills. EYES: Denies blurred vision. Denies vision changes. Denies eye pain. EARS, NOSE, MOUTH & THROAT: Denies headache. Denies sore throat. Denies ear pain. CARDIOVASCULAR: Denies chest pain. Denies shortness of breath. Denies orthopnea. Denies PND. Denies palpitations. RESPIRATORY: Denies cough. GASTROINTESTINAL: Denies abdominal pain. Denies diarrhea. Denies constipation. Denies nausea. Denies vomiting. MUSCULOSKELETAL: Denies myalgias. INTEGUMENTARY: Denies pruitis. Denies rash. NEUROLOGIC: Denies numbness. Denies tingling. Denies weakness. PSYCHIATRIC: Denies anxiety. Denies depression. ENDOCRINE: Denies fatigue. Denies weight change. Denies polydipsia. Denies polyurina. GENITOURINARY: Denies burning, hematuria or urgency with micturation. HEMATOLOGIC: Denies history of anemia. Denies bleeding. Blood pressure 95/56 heart rate 57 afebrile maintaining oxygen saturation on room air GENERAL: This is a 57-year-old male in no apparent distress at the time of my examination. HEENT: Head is atraumatic, normocephalic. Pupils are equal, round. Sclerae anicteric. Conjunctivae are clear. Mucous membranes of the mouth are moist. Neck is supple. There is no jugular venous distention. No carotid bruit is heard. LUNGS: Clear to auscultation no wheezes, rales or rhonchi. No chest wall tenderness is noted on palpation or with deep breathing. HEART: Regular rate and rhythm with systolic ejection murmur at the left sternal border, no rubs or gallops. S1 and S2 heard. ABDOMEN: Soft, nontender. Bowel sounds are heard. No organomegaly noted. EXTREMITIES: No evidence of peripheral edema and no calf tenderness noted. VASCULAR: Radial and dorsalis pedis pulses palpated, no evidence of clubbing. NEUROLOGIC: Patient is awake, alert and oriented x3. ASSESSMENT Symptoms of throat fullness suggestive of gastroesophagel reflux disease History of non-ischemic cardiomyopathy s/p AICD placement History of ventricular fibrillation maintained on amiodarone Chronic systolic heart failure with elevated NTproBNP, clinically he is euvolemic. Most likely this is a chronic elevation. Hypertension Dyslipidemia Obstructive sleep apnea, currently awaiting CPAP fitting PLAN Symptoms are not suggestive of heart failure or angina. Clinically he is euvolemic. Ongoing medical management. Consider PPI daily. Follow up as previously established with Dr. Adame. Thank you kindly for this consultation. Nurse Practitioner note has been reviewed, I agree with a documented findings and plan of care. Patient was seen and examined. 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 Cardiac arrest on 09/08 History of Any Multi-Drug Resistant Organisms: None Reported Past Surgical History: Appendectomy, Orthopedic Surgery Additional Past Surgical History / Comment(s): Arthroscopy on R knee medial meniscus, colonoscopy, fustualopy in 1991 Past Anesthesia/Blood Transfusion Reactions: No Reported Reaction Smoking Status: Never smoker - Past Family History Father Family Medical History: Cancer Additional Family Medical History / Comment(s): Father at the age of 39 yrs from bone cancer. Mother Family Medical History: COPD Additional Family Medical History / Comment(s): Mother has heart valve issues. She is 82 yrs old. Medications and Allergies Home Medications Medication Instructions Recorded Confirmed Type Levothyroxine Sodium [Synthroid] 50 mcg PO DAILY #30 tab 09/18/18 11/17/18 Rx Metoprolol Tartrate [Lopressor] 50 mg PO BID #60 tab 09/18/18 11/17/18 Rx Spironolactone 25 mg PO DAILY #30 tablet 09/18/18 11/17/18 Rx Acetaminophen [Tylenol Extra 500 mg PO BID PRN 11/17/18 11/17/18 History Strength] Amiodarone [Cordarone] 200 mg PO DAILY 11/17/18 11/17/18 History Losartan [Cozaar] 25 mg PO HS 11/17/18 11/17/18 History Omeprazole Magnesium [PriLOSEC OTC] 20 mg PO HS PRN 11/17/18 11/17/18 History Allergies Allergy/AdvReac Type Severity Reaction Status Date / Time No Known Allergies Allergy Verified 11/17/18 08:07 Physical Exam Vitals: Vital Signs Temp Pulse Pulse Resp BP BP Pulse Ox 11/17/18 08:00 57 L 18 11/17/18 07:27 95 11/17/18 07:15 98.8 F 57 L 18 95/56 95 11/17/18 06:05 16 11/17/18 05:01 98.6 F 60 16 108/70 94 L 11/17/18 03:57 62 16 127/86 100 11/17/18 02:57 68 16 122/80 100 11/16/18 23:55 97.9 F 55 L 20 124/85 95 Intake and Output 11/16/18 11/17/18 11/17/18 22:59 06:59 14:59 Other: # Voids 1 Weight 93.44 kg Results 11/17/18 00:53 11/17/18 00:53 Cardiac Enzymes 11/17/18 11/17/18 Range/Units 00:53 00:53 AST 25 (17-59) U/L Troponin I <0.012 (0.000-0.034) ng/mL Coagulation 11/17/18 Range/Units 00:53 PT 11.1 (9.0-12.0) sec APTT 25.8 (22.0-30.0) sec CBC 11/17/18 Range/Units 00:53 WBC 9.8 (3.8-10.6) k/uL RBC 4.98 (4.30-5.90) m/uL Hgb 14.6 (13.0-17.5) gm/dL Hct 44.9 (39.0-53.0) % Plt Count 202 (150-450) k/uL Comprehensive Metabolic Panel 11/17/18 Range/Units 00:53 Sodium 133 L (137-145) mmol/L Potassium 4.6 (3.5-5.1) mmol/L Chloride 101 (98-107) mmol/L Carbon Dioxide 24 (22-30) mmol/L BUN 25 H (9-20) mg/dL Creatinine 1.23 (0.66-1.25) mg/dL Glucose 120 H (74-99) mg/dL Calcium 9.5 (8.4-10.2) mg/dL AST 25 (17-59) U/L ALT 38 (21-72) U/L Alkaline Phosphatase 80 (38-126) U/L Total Protein 6.9 (6.3-8.2) g/dL Albumin 4.1 (3.5-5.0) g/dL Current Medications Generic Name Dose Route Start Last Admin Trade Name Freq PRN Reason Stop Dose Admin Amiodarone HCl 200 mg 11/17/18 09:00 11/17/18 09:19 Cordarone PO 200 mg DAILY LEY Administration Levothyroxine Sodium 50 mcg 11/17/18 06:30 11/17/18 05:26 Synthroid PO 50 mcg DAILY@0630 [facility] Administration Losartan Potassium 25 mg 11/17/18 21:00 Cozaar PO [facility] Metoprolol Tartrate 50 mg 11/17/18 09:00 11/17/18 09:19 Lopressor PO 50 mg BID [facility] Administration Pantoprazole Sodium 40 mg 11/18/18 07:30 Protonix PO [facility] Spironolactone 25 mg 11/17/18 09:00 11/17/18 09:19 Aldactone PO 25 mg DAILY [facility] Administration Intake and Output 11/16/18 11/17/18 11/17/18 22:59 06:59 14:59 Other: # Voids 1 Weight 93.44 kg 11/17/18 00:53 11/17/18 00:53
[2018-11-17] MEDS ORDERED: PANTOPRAZOLE 40 MG TABLET PO STA (10:37)
[2018-11-17 10:58] VITALS: BMI 28.7
--- NOTE | 2018-11-17 11:14 | P.CNPUL ---
History of Present Illness Consult date: 11/17/18 Reason for consult: dyspnea History of present illness: 57-year-old male patient, a survival of a cardiac arrest, known history of nonischemic cardiomyopathy, previous history of atrial fibrillation status post AICD placement and the patient has an ejection fraction of 20-25% and severely dilated LA, who presented yesterday to the burst department after the patient had some chest discomfort and wheezing. The patient apparently was doing well. He had dinner. Following that, within next few hours, he started having increased wheezing and symptoms of reflux and throat irritation. He became more short of breath. He presented to the hospital for that. No angina. No fever chills or night sweats. No pleurisy. Note that he has been diagnosed having reflux and the patient was given Prilosec 20 mg by mouth daily. He had a previous bronchoscopy that showed significant swelling and irritation of the upper airway structures. He has clinical symptoms of reflux. He felt fullness in his throat and some material being reflux from the stomach. His chest x-ray showed a mild pulmonary vessel congestion. No reported aspiration. No oxygen desaturation. The patient was started a combination of antibiotics including Rocephin and Zithromax. The patient was given a dose of Lasix and this morning his back to his baseline. Has medications are all unchanged. He is on a combination of amiodarone, losartan, Lopressor and Aldactone. He does not use any form of respiratory medications. His cardiac enzymes 1 is negative. BNP level was 3180. White cell count was at 9.8. A repeat echocardiogram that was done in the office of cardiology on 10/22/2018 showed global hypokinesis with ejection fraction of 40%. I also performed a sleep study on this patient and the patient was found to have a combination of obstructive and central sleep apnea. The patient had an AHI of 30, worse in the supine gracia position and the patient spent approximately 8% of sleep time and a pulse ox of less than 90% . He is supposed to undergo a CPAP titration with the next few weeks. Review of Systems CONSTITUTIONAL: Denies fever. Denies chills. EYES: Denies blurred vision. Denies vision changes. Denies eye pain. EARS, NOSE, MOUTH & THROAT: Denies headache. Denies sore throat. Denies ear pain. CARDIOVASCULAR: Denies chest pain. Denies shortness of breath. Denies orthopnea. Denies PND. Denies palpitations. RESPIRATORY: She is wheezing and chest congestion GASTROINTESTINAL: Denies abdominal pain. Denies diarrhea. Denies constipation. Denies nausea. Denies vomiting. The patient has symptoms of reflux. MUSCULOSKELETAL: Denies myalgias. INTEGUMENTARY: Denies pruitis. Denies rash. NEUROLOGIC: Denies numbness. Denies tingling. Denies weakness. PSYCHIATRIC: Denies anxiety. Denies depression. ENDOCRINE: Denies fatigue. Denies weight change. Denies polydipsia. Denies polyurina. GENITOURINARY: Denies burning, hematuria or urgency with micturation. HEMATOLOGIC: Denies history of anemia. Denies bleeding. Past Medical History Past Medical History: Heart Failure, Hypertension, Sleep Apnea/CPAP/BIPAP Additional Past Medical History / Comment(s): Cardiomyopathy with an ejection fraction of 20-25% which improved upon subsequent echocardiograms, previous history of cardiac arrest, previous history of atrial fibrillation, sleep apnea a combination of obstructive and central with an AHI of 30, acid reflux , PVCs, borderline diabetic, 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 Cardiac arrest on 09/08, hypertension, hyperlipidemia History of Any Multi-Drug Resistant Organisms: None Reported Past Surgical History: Appendectomy, Orthopedic Surgery Additional Past Surgical History / Comment(s): Arthroscopy on R knee medial meniscus, colonoscopy, fustualopy in 1991, history of AICD placement Past Anesthesia/Blood Transfusion Reactions: No Reported Reaction Smoking Status: Never smoker - Past Family History Father Family Medical History: Cancer Additional Family Medical History / Comment(s): Father at the age of 39 yrs from bone cancer. Mother Family Medical History: COPD Additional Family Medical History / Comment(s): Mother has heart valve issues. She is 82 yrs old. Medications and Allergies Home Medications Medication Instructions Recorded Confirmed Type Levothyroxine Sodium [Synthroid] 50 mcg PO DAILY #30 tab 09/18/18 11/17/18 Rx Metoprolol Tartrate [Lopressor] 50 mg PO BID #60 tab 09/18/18 11/17/18 Rx Spironolactone 25 mg PO DAILY #30 tablet 09/18/18 11/17/18 Rx Acetaminophen [Tylenol Extra 500 mg PO BID PRN 11/17/18 11/17/18 History Strength] Amiodarone [Cordarone] 200 mg PO DAILY 11/17/18 11/17/18 History Losartan [Cozaar] 25 mg PO HS 11/17/18 11/17/18 History Omeprazole Magnesium [PriLOSEC OTC] 20 mg PO HS PRN 11/17/18 11/17/18 History Allergies Allergy/AdvReac Type Severity Reaction Status Date / Time No Known Allergies Allergy Verified 11/17/18 08:07 Physical Exam Vitals: Vital Signs Temp Pulse Pulse Resp BP BP Pulse Ox 11/17/18 08:00 57 L 18 11/17/18 07:27 95 11/17/18 07:15 98.8 F 57 L 18 95/56 95 11/17/18 06:05 16 11/17/18 05:01 98.6 F 60 16 108/70 94 L 11/17/18 03:57 62 16 127/86 100 11/17/18 02:57 68 16 122/80 100 11/16/18 23:55 97.9 F 55 L 20 124/85 95 Intake and Output 11/16/18 11/17/18 11/17/18 22:59 06:59 14:59 Other: # Voids 1 Weight 93.44 kg 93.44 kg The patient appeared well nourished and normally developed. Vital signs as documented. Head exam is unremarkable. No scleral icterus or corneal arcus noted. Neck is without jugular venous distension, thyromegaly, or carotid bruits. Carotid upstrokes are brisk bilaterally. Lungs are clear to auscultation and percussion. Cardiac exam reveals the PMI to be normally sized and situated. Rhythm is regular. First and second heart sounds normal. No murmurs, rubs or gallops. Abdominal exam reveals normal bowel sounds, no masses , no organomegaly and no aortic enlargement. Extremities are nonedematous and both femoral and pedal pulses are normal. Examination of the skin revealed no evidence of significant rashes, suspicious appearing nevi or other concerning lesions. Neurologically the patient is awake and alert and is no focal logical deficits. Results - Laboratory Findings CBC and BMP: 11/17/18 00:53 11/17/18 00:53 PT/INR, D-dimer PT 11.1 sec (9.0-12.0) 11/17/18 00:53 INR 1.0 (<1.2) 11/17/18 00:53 Abnormal lab findings: Abnormal Labs 11/17/18 00:53 Sodium 133 L BUN 25 H Glucose 120 H - Diagnostic Findings CT scan - chest: image reviewed Assessment and Plan Plan: Assessment 1 acute dyspnea/bronchospasm, without any history of chronic obstructive lung disease/asthma/COPD. Consider reflux with some limited aspiration underlying this patient's symptoms. The patient had a previous bronchoscopy that showed swelling of the upper airway structures including the voice box and this was attributed to reflux and the patient has been taking Prilosec on outpatient basis at a dose of 20 mg by mouth daily. Rule out underlying aspiration 2 nonischemic cardiomyopathy and the patient is a massively in place. He is demonstrating improvement in ejection fraction which is up to 40% based on a recent evaluation 3 history of cardiac arrest secondary to ventricular fibrillation currently on amiodarone 4 hypertension 5 hyperlipidemia 6 sleep apnea which is a combination of obstructive and central and the patient had an AHI of 30, worse in supine gracia position Plan Continue current treatment. No need for any bronchodilators. Patient is improved and he is back to his baseline. Put the patient oral Protonix. GI consultation for an EGD regarding his symptoms of ongoing reflux. CPAP titration on outpatient basis. We'll continue to follow.
--- NOTE | 2018-11-17 13:18 | P.CONS ---
History of Present Illness - Reason for Consult Consult date: 11/17/18 GERD Requesting physician: Shari Em - Chief Complaint Dyspnea - History of Present Illness 57-year-old gentleman with a history of cardiac arrest, nonischemic cardiomyopathy, sleep apnea, atrial fibrillation, AICD, severely dilated LA EF 40% admitted with acute dyspnea bronchospasm increased coughing airway irritation last 24 hours. Patient has been seen by cardiology and pulmonology and felt his presentation may be related to GERD. Patient has had episodes of intermittent indigestion acid reflux. Voice has at times been intermittently hoarse. Denies hematemesis hematochezia hemoptysis or melena. No history of EGD. No unexplained weight loss. Denies abdominal pain. Patient was provided a trial of PPI therapy daily a few weeks ago with some improvement. Denies odynophagia dysphagia. Most of his feelings of irritation are centered in the posterior upper esophageal region. No history of pneumonia or hospitalizations for pneumonia. An underlying aspiration cannot be entirely excluded. Chest x-ray possible infiltrate in the mid to lower right lung. INR 1.0. Platelet 202. White count 9.8. Hemoglobin 14.6. INR 1.0. Platelet 202. Review of Systems Constitutional: Denies fever, chills, sweats, weight gain, or loss. HEENT: Negative for migraines, blurred vision or loss, earaches, drainage, tinnitus, oral mucosal lesions, dysphagia, or odynophagia. Cardiac: Negative for chest pain, arrhythmias, or palpitation. Respiratory: Admitted with shortness of breath, denies hemoptysis, cough, or sputum production. Gastrointestinal: See HPI for pertinent findings. Genitourinary: Negative for hematuria, urgency, frequency, polyuria, dysuria, or penile discharge. Musculoskeletal: Negative for muscle aches, swelling, arthritis, and arthralgias. Neurologic: Negative for stroke or TIA. Endocrine: Negative for thyroid problems. Skin: Negative for rash or itching. 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 Cardiac arrest on 09/08, hypertension, hyperlipidemia History of Any Multi-Drug Resistant Organisms: None Reported Past Surgical History: Appendectomy, Orthopedic Surgery Additional Past Surgical History / Comment(s): Arthroscopy on R knee medial meniscus, colonoscopy, fustualopy in 1991, history of AICD placement Past Anesthesia/Blood Transfusion Reactions: No Reported Reaction Smoking Status: Never smoker - Past Family History Father Family Medical History: Cancer Additional Family Medical History / Comment(s): Father at the age of 39 yrs from bone cancer. Mother Family Medical History: COPD Additional Family Medical History / Comment(s): Mother has heart valve issues. She is 82 yrs old. Medications and Allergies Home Medications Medication Instructions Recorded Confirmed Type Levothyroxine Sodium [Synthroid] 50 mcg PO DAILY #30 tab 09/18/18 11/17/18 Rx Metoprolol Tartrate [Lopressor] 50 mg PO BID #60 tab 09/18/18 11/17/18 Rx Spironolactone 25 mg PO DAILY #30 tablet 09/18/18 11/17/18 Rx Acetaminophen [Tylenol Extra 500 mg PO BID PRN 11/17/18 11/17/18 History Strength] Amiodarone [Cordarone] 200 mg PO DAILY 11/17/18 11/17/18 History Losartan [Cozaar] 25 mg PO HS 11/17/18 11/17/18 History Omeprazole Magnesium [PriLOSEC OTC] 20 mg PO HS PRN 11/17/18 11/17/18 History Allergies Allergy/AdvReac Type Severity Reaction Status Date / Time No Known Allergies Allergy Verified 11/17/18 08:07 Physical Exam Vitals: Vital Signs Temp Pulse Pulse Resp BP BP Pulse Ox 11/17/18 12:00 48 L 18 11/17/18 11:46 98.1 F 51 L 18 101/63 96 11/17/18 08:00 57 L 18 11/17/18 07:27 95 11/17/18 07:15 98.8 F 57 L 18 95/56 95 11/17/18 06:05 16 11/17/18 05:01 98.6 F 60 16 108/70 94 L 11/17/18 03:57 62 16 127/86 100 11/17/18 02:57 68 16 122/80 100 11/16/18 23:55 97.9 F 55 L 20 124/85 95 Intake and Output 11/16/18 11/17/18 11/17/18 22:59 06:59 14:59 Intake Total 480 Balance 480 Intake: Oral 480 Other: # Voids 1 2 Weight 93.44 kg 93.44 kg General appearance: The patient is alert, oriented, in no acute distress. HET: Head is normocephalic and atraumatic. Pupils are equal and reactive. Oropharynx is clear without lesions. Neck: Supple without lymphadenopathy. Trachea midline. Heart: S1 S2. Regular rate and rhythm. Lungs: No crackles or wheezes are heard. Abdomen: Soft, nontender, nondistended with bowel sounds. No peritoneal signs. No palpable organomegaly or masses. Extremities: Normal skin color and turgor. No cyanosis, rash, ulceration, clubbing, or edema. Radial and pedal pulses are 2/4 bilaterally. Neurological: No focal deficits. Strength and sensation are grossly intact. Results CBC & Chem 7: 11/17/18 00:53 11/17/18 00:53 Labs: Abnormal Lab Results - Last 24 Hours (Table) 11/17/18 Range/Units 00:53 Sodium 133 L (137-145) mmol/L BUN 25 H (9-20) mg/dL Glucose 120 H (74-99) mg/dL CT scan - chest: report reviewed (Dr. Khan) Assessment and Plan (1) GERD (gastroesophageal reflux disease) Narrative/Plan: 57-year-old male admitted with acute dyspnea bronchospasm with suspected underlying GERD reflux causing his bronchospasm. Underlying aspiration pneumonia cannot be entirely excluded. Current Visit: Yes Status: Acute Code(s): K21.9 - GASTRO-ESOPHAGEAL REFLUX DISEASE WITHOUT ESOPHAGITIS SNOMED Code(s): 299708019 (2) Dyspnea Current Visit: Yes Status: Acute Code(s): R06.00 - DYSPNEA, UNSPECIFIED SNOMED Code(s): 946623160 Plan: 1. EGD. 2. Protonix 40 mg daily. The belt weaver has discussed the risks, benefits and alternative therapies for the above-mentioned procedure and for both sedation/analgesia as well as necessary blood product administration, if indicated, as they pertain to this patient. The patient has indicated understanding and acceptance of the risks and procedures discussed. Thank you for this kind referral and the opportunity to participate in the care of your patient. This consultation was discussed with Dr. Khan. The impression and plan of care have been directed as dictated.
[2018-11-17] MEDS ORDERED: PROPOFOL 10 MG/ML 20 ML VIAL IV ONE (15:24)
[2018-11-17] MEDS ORDERED: LIDOCAINE 1% INJ 10MG/ML (20 ML MDV) ONE (15:24)
[2018-11-17] MEDS ORDERED: LACTATED RINGERS 1,000 ML IV ONE (15:44)
--- NOTE | 2018-11-17 15:59 | P.PCN ---
Date of Procedure: 11/17/18 Description of Procedure: BRIEF HISTORY: 57-year-old gentleman with a history of cardiac arrest, nonischemic cardiomyopathy, sleep apnea, atrial fibrillation, AICD, severely dilated LA EF 40% admitted with acute dyspnea bronchospasm increased coughing airway irritation last 24 hours. Patient has been seen by cardiology and pulmonology and felt his presentation may be related to GERD. Patient has had episodes of intermittent indigestion acid reflux. Voice has at times been intermittently hoarse. Denies hematemesis hematochezia hemoptysis or melena. No history of EGD. No unexplained weight loss. Denies abdominal pain. Patient was provided a trial of PPI therapy daily a few weeks ago with some improvement. Denies odynophagia dysphagia. Most of his feelings of irritation are centered in the posterior upper esophageal region. No history of pneumonia or hospitalizations for pneumonia. An underlying aspiration cannot be entirely excluded. Chest x- ray possible infiltrate in the mid to lower right lung.. PROCEDURE PERFORMED: Esophagogastroduodenoscopy with biopsy. PREOPERATIVE DIAGNOSIS: GERD. ESTIMATED BLOOD LOSS: Minimal. IV sedation per anesthesia. PROCEDURE: After informed consent was obtained, the patient was brought into the endoscopy unit. IV sedation was administered by Anesthesia under continuous monitoring. Initially the Olympus GIF-190 video endoscope was inserted into the mouth. Esophagus intubated without any difficulty. It was gradually advanced into the stomach and duodenum and carefully examined. The bulb and the second part of the duodenum appeared normal. The scope at this time was withdrawn to the stomach, adequately insufflated with air, and upon careful examination, mucosa of the antrum, body, cardia and the fundus appeared grossly normal, with some mild scattered erythema in the antrum and body suggestive of mild gastritis biopsied. The scope was then withdrawn into the esophagus. The GE junction was located at 43 cm from the incisors and appeared somewhat irregular with biopsies taken of the distal esophagus. The esophagus appeared normal. There were no erosions or ulcerations seen and the patient tolerated the procedure well. IMPRESSION: 1. Mild gastritis antrum body, biopsied. 2. Irregular GE junction, biopsied. RECOMMENDATIONS: The findings of this examination were discussed with the patient his and [id number]. Okay to resume diet. Continue Prilosec therapy. Await pathology from biopsies. Suggest follow-up with gastroenterology in one to 2 weeks after discharge. Okay for discharge from gastroenterology standpoint.
[2018-11-17 16:14] VITALS: TEMP 97.7
[2018-11-17 16:38] VITALS: BP 100/61; PULSE 49
[2018-11-18] MEDS ORDERED: PANTOPRAZOLE 40 MG TABLET PO SCH (07:30)
--- NOTE | 2018-11-18 08:15 | DS ---
DISCHARGE SUMMARY Mr. Davis is a 57-year-old gentleman who presents with shortness of breath and upper chest discomfort that started the evening of his presentation to the emergency room at [facility]. He is a 57-year-old gentleman who has had a previous cardiac arrest due to ventricular tachycardia back in August. At that time, he underwent catheterization which showed normal vessels and had an AICD placed. The patient was found to have an EKG, did not show definite ischemic changes. His labs showed an unremarkable CBC. BUN was 25 with a creatinine 1.25 giving a GFR 64, blood sugar was 60. The troponin was 0.012, but BNP is was elevated at 3180. Chest x-ray showed what was considered to be a possible infiltrate to the mid to lower right lung field. The patient was monitored. Consultation obtained initially with Pulmonary Medicine and Cardiology due to possibility of reflux esophagitis. An upper gastroscopy was performed as Gastroenterology was consulted and Dr. Khan evaluated the patient. The findings revealed evidence of gastritis and somewhat irregular gastroesophageal junction for which biopsies were taken. At this point plans are to discharge to home with follow up with myself and Gastroenterology over the next one to two weeks and follow up on the esophageal biopsies. He is also to have regular follow up with Cardiology and Pulmonary Medicine, who he has seen as outpatient. He will be placed on Protonix 40 mg daily and continue his acetaminophen for pain, spironolactone 25 mg daily, metoprolol tartrate 50 mg twice a day, losartan 25 mg at bedtime, levothyroxine 50 mcg daily and amiodarone 200 mg daily. Discharge diagnoses include:. 1. Upper chest pain related to gastroesophageal reflux associated with #2. Along with acute gastritis seen on upper endoscopy. 2. Asthma, mildly persistent with wheezing. 3. Underlying nonischemic cardiomyopathy. 4. History of ventricular tachycardia and cardiac arrest in 08/2018, status post AICD placement. 5. Mild intermittent asthma. 6. Previous history of supraventricular tachycardia. 7. Previous history of hypertension. 8. Chronic systolic congestive heart failure. 9. Hypothyroidism, on replacement. 10.Sleep apnea. MMODL / IJN: [id number] / MTDD
== END 2018-11-17 16:51 | disposition home or self-care (01) ==
LOC: EC 23:43 → 1SOBS 11-17 03:52
PROVIDERS: ADMIT Internal Medicine; ATTEND Internal Medicine
DX: K21.0 Gastro-esophageal reflux disease with esophagitis (principal); K29.50 Unspecified chronic gastritis without bleeding; J45.21 Mild intermittent asthma with (acute) exacerbation; R73.03 Prediabetes; I44.7 Left bundle-branch block, unspecified; R79.89 Other specified abnormal findings of blood chemistry; I48.91 Unspecified atrial fibrillation; I47.2 Ventricular tachycardia; E03.9 Hypothyroidism, unspecified; G47.33 Obstructive sleep apnea (adult) (pediatric); G47.31 Primary central sleep apnea; E78.5 Hyperlipidemia, unspecified; I49.3 Ventricular premature depolarization; I11.0 Hypertensive heart disease with heart failure; I50.22 Chronic systolic (congestive) heart failure; I42.9 Cardiomyopathy, unspecified; Z79.890 Hormone replacement therapy; Z79.899 Other long term (current) drug therapy; Z86.74 Personal history of sudden cardiac arrest; Z95.810 Presence of automatic (implantable) cardiac defibrillator; Z86.11 Personal history of tuberculosis; Z86.79 Personal history of other diseases of the circulatory system; Z90.49 Acquired absence of other specified parts of digestive tract; Z82.5 Family history of asthma and other chronic lower respiratory diseases; Z80.8 Family history of malignant neoplasm of other organs or systems; Z82.49 Family history of ischemic heart disease and other diseases of the circulatory system
CPT/HCPCS: 96361; 96365; 96375; 99284; 36415; 93005; 88305; 83880; 80053; 83735; 84484; 85025; 85610; 85730; 71046; 43239; G0378; J1940; J2001; J0696; J2704

== ENCOUNTER 2018-12-09 00:06 | Emergency (ER) | payer BC ==
[2018-12-09 01:19] LABS: Basophils # (A) 0.1 k/uL (0-0.2); Basophils % (A) 0 %; Eosinophils # (A) 0.2 k/uL (0-0.7); Eosinophils % (A) 1 %; HCT 45.5 % (39.0-53.0); HGB 14.6 gm/dL (13.0-17.5); Lymphocytes # (A) 1.6 k/uL (1.0-4.8); Lymphocytes % (A) 12 %; MCH 29.3 pg (25.0-35.0); MCHC 32.2 g/dL (31.0-37.0); Mean Platelet Volume 8.3; Monocytes # (A) 0.8 k/uL (0-1.0); Monocytes % (A) 6 %; Neutrophils # (A) 10.8 k/uL (1.3-7.7); Neutrophils % (A) 80 %; Platelet Count 200 k/uL (150-450); RDW 13.7 % (11.5-15.5); WBC 13.5 k/uL (3.8-10.6)
[2018-12-09 01:35] LABS: INR 1.1 (<1.2); Partial Thromboplastin Time 23.3 sec (22.0-30.0); Prothrombin Time 11.4 sec (9.0-12.0)
[2018-12-09 01:36] LABS: Albumin 4.1 g/dL (3.5-5.0); Calcium 9.6 mg/dL (8.4-10.2); Potassium 4.8 mmol/L (3.5-5.1); Total Bilirubin 2.2 mg/dL (0.2-1.3); Total Protein 6.8 g/dL (6.3-8.2)
[2018-12-09] MEDS ORDERED: IPRATROPIUM-ALBUTEROL 3 ML NEB INHALATION STA (01:40)
--- NOTE | 2018-12-09 03:13 | ED ---
SOB HPI - General Chief Complaint: Shortness of Breath Stated Complaint: CHF Blood tinged cough Time Seen by Provider: 12/09/18 00:28 Source: patient Mode of arrival: ambulatory Limitations: no limitations - History of Present Illness Initial Comments: Joseph is a 58-year-old gentleman with a history of cardiomyopathy and congestive heart failure who presents the emergency department today for reevaluation of difficulty breathing. Patient episodes similar this approximate 3 weeks ago which time evaluated in ER placed him in observation for possible heart failure. Patient was at school evaluated by cardiology advised that he did not have a CHF exacerbation at that time and that his BNP elevation is chronic due to his cardiomyopathy. Patient was discharged home. Patient reports that he's noticed since that time that when he is exposed to cold air he feels as though he has shortness of breath. Patient reports that he felt like the weather was warming up today so he went for a walk outside he reports that he is feeling very well at that time. Patient reports that upon returning home this evening he developed what he describes as feeling like there is tightness with expiration and wheezing. Patient had a nonproductive cough but did notice a slight amount of blood streaking in his sputum which prompted him to come the ER for evaluation. Patient did attempt to use a Ventolin inhaler prior to coming to the ER with no improvement in his symptoms. However upon evaluation the ER he does report that his symptoms have nearly resolved aced feeling much better at this time. However given his significant cardiac history patient does want evaluation to ensure that this is not related to his heart. - Related Data Home Medications Medication Instructions Recorded Confirmed Acetaminophen [Tylenol Extra 500 mg PO BID PRN 11/17/18 11/17/18 Strength] Amiodarone [Cordarone] 200 mg PO DAILY 11/17/18 11/17/18 Losartan [Cozaar] 25 mg PO HS 11/17/18 11/17/18 Omeprazole Magnesium [PriLOSEC OTC] 20 mg PO HS PRN 11/17/18 11/17/18 Previous Rx's Medication Instructions Recorded Levothyroxine Sodium [Synthroid] 50 mcg PO DAILY #30 tab 09/18/18 Metoprolol Tartrate [Lopressor] 50 mg PO BID #60 tab 09/18/18 Spironolactone 25 mg PO DAILY #30 tablet 09/18/18 Allergies Allergy/AdvReac Type Severity Reaction Status Date / Time No Known Allergies Allergy Verified 12/09/18 00:11 Review of Systems ROS Statement: Those systems with pertinent positive or pertinent negative responses have been documented in the HPI. ROS Other: All systems not noted in ROS Statement are negative. 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 Hypertension, hyperlipidemia History of Any Multi-Drug Resistant Organisms: None Reported Past Surgical History: Appendectomy, Orthopedic Surgery Additional Past Surgical History / Comment(s): Arthroscopy on R knee medial meniscus, colonoscopy, fustualopy in 1991, history of AICD placement Past Anesthesia/Blood Transfusion Reactions: No Reported Reaction Past Psychological History: No Psychological Hx Reported Smoking Status: Never smoker Past Alcohol Use History: None Reported Past Drug Use History: None Reported - Past Family History Father Family Medical History: Cancer Additional Family Medical History / Comment(s): Father at the age of 39 yrs from bone cancer. Mother Family Medical History: COPD Additional Family Medical History / Comment(s): Mother has heart valve issues. She is 82 yrs old. General Exam - General Exam Comments Initial Comments: Physical Exam GENERAL: Patient is well-developed and well-nourished. Patient is nontoxic and well- hydrated and is in no distress. HENT: Normocephalic, Atraumatic. EYES: PERRL, EOMI PULMONARY: Mild expiratory wheezing most pronounced on right CARDIOVASCULAR: There is a regular rate and rhythm without any murmurs gallops or rubs. ABDOMEN: Soft and nontender with normal bowel sounds. SKIN: Skin is clear with no lesions or rashes and otherwise unremarkable. : Deferred NEUROLOGIC: Patient is alert and oriented x3. Moving all extremities spontaneously MUSCULOSKELETAL: Normal extremities with adequate strength and full range of motion. No lower extremity swelling or edema. No calf tenderness. PSYCHIATRIC: Normal psychiatric evaluation. Limitations: no limitations Limitations: no limitations Course Vital Signs 12/09/18 12/09/18 12/09/18 00:09 01:00 01:14 Temperature 97.9 F Pulse Rate 67 64 60 Respiratory 18 14 13 Rate Blood Pressure 125/76 O2 Sat by Pulse 94 L 92 L Oximetry 12/09/18 12/09/18 12/09/18 01:20 01:30 01:40 Temperature Pulse Rate 60 58 L 56 L Respiratory 13 12 15 Rate Blood Pressure O2 Sat by Pulse Oximetry 12/09/18 12/09/18 12/09/18 01:50 02:00 02:07 Temperature Pulse Rate 60 60 61 Respiratory 13 8 L Rate Blood Pressure 106/70 O2 Sat by Pulse Oximetry 12/09/18 12/09/18 12/09/18 02:10 02:17 02:40 Temperature Pulse Rate 57 L 59 L 59 L Respiratory 9 L 17 Rate Blood Pressure 108/67 110/66 O2 Sat by Pulse Oximetry Medical Decision Making - Medical Decision Making The patient was seen and evaluated, history was obtained from patient and review of medical record as well as my own recall of evaluating this patient approximately 3 weeks ago Patient seems to have had an episode of bronchospasm which did not respond of Ventolin inhaler prior to coming to the ER. Upon my evaluation patient symptoms of resolved he has mild expiratory wheezing is feeling quite well Considering the patient's significant cardiac history we'll obtain an evaluation and treat the patient with a breathing treatment Chest x-ray with poor inspiration no obvious infiltrate or evidence of CHF Labs her baseline Patient received DuoNeb with improvement in symptoms. At this time I advised the patient that since he has established care with a clinical research spec he should discussed the possibility of a breathing treatment. I do feel that the patient hasI was available for consultation in the emergency department. The history and physical exam were done by the midlevel provider. I was consulted for this patient's care. I reviewed the case with the midlevel provider and based on their presentation of the patient, I agree with the assessment, medical decision making and plan of care as documented. Induced bronchospasm. Advised patient he should continue with his cardiac rehab as scheduled later this week follow up with his primary care clinical research spec and celery stripper. Return parameters were discussed patient's discharged home in stable condition. - Lab Data Result diagrams: 12/09/18 01:04 12/09/18 01:04 Lab Results 12/09/18 12/09/18 12/09/18 Range/Units 01:04 01:04 01:04 WBC 13.5 H (3.8-10.6) k/uL RBC 5.00 (4.30-5.90) m/uL Hgb 14.6 (13.0-17.5) gm/dL Hct 45.5 (39.0-53.0) % MCV 91.0 (80.0-100.0) fL MCH 29.3 (25.0-35.0) pg MCHC 32.2 (31.0-37.0) g/dL RDW 13.7 (11.5-15.5) % Plt Count 200 (150-450) k/uL Neutrophils % 80 % Lymphocytes % 12 % Monocytes % 6 % Eosinophils % 1 % Basophils % 0 % Neutrophils # 10.8 H (1.3-7.7) k/uL Lymphocytes # 1.6 (1.0-4.8) k/uL Monocytes # 0.8 (0-1.0) k/uL Eosinophils # 0.2 (0-0.7) k/uL Basophils # 0.1 (0-0.2) k/uL PT (9.0-12.0) sec INR (<1.2) APTT (22.0-30.0) sec Sodium 136 L (137-145) mmol/L Potassium 4.8 (3.5-5.1) mmol/L Chloride 103 (98-107) mmol/L Carbon Dioxide 23 (22-30) mmol/L Anion Gap 10 mmol/L BUN 23 H (9-20) mg/dL Creatinine 1.43 H (0.66-1.25) mg/dL Est GFR (CKD-EPI)AfAm 62 (>60 ml/min/1.73 sqM) Est GFR (CKD-EPI)NonAf 53 (>60 ml/min/1.73 sqM) Glucose 131 H (74-99) mg/dL Calcium 9.6 (8.4-10.2) mg/dL Magnesium 2.0 (1.6-2.3) mg/dL Total Bilirubin 2.2 H (0.2-1.3) mg/dL AST 40 (17-59) U/L ALT 53 (21-72) U/L Alkaline Phosphatase 90 (38-126) U/L Troponin I (0.000-0.034) ng/mL NT-Pro-B Natriuret Pep 3550 pg/mL Total Protein 6.8 (6.3-8.2) g/dL Albumin 4.1 (3.5-5.0) g/dL 12/09/18 12/09/18 Range/Units 01:04 01:04 WBC (3.8-10.6) k/uL RBC (4.30-5.90) m/uL Hgb (13.0-17.5) gm/dL Hct (39.0-53.0) % MCV (80.0-100.0) fL MCH (25.0-35.0) pg MCHC (31.0-37.0) g/dL RDW (11.5-15.5) % Plt Count (150-450) k/uL Neutrophils % % Lymphocytes % % Monocytes % % Eosinophils % % Basophils % % Neutrophils # (1.3-7.7) k/uL Lymphocytes # (1.0-4.8) k/uL Monocytes # (0-1.0) k/uL Eosinophils # (0-0.7) k/uL Basophils # (0-0.2) k/uL PT 11.4 (9.0-12.0) sec INR 1.1 (<1.2) APTT 23.3 (22.0-30.0) sec Sodium (137-145) mmol/L Potassium (3.5-5.1) mmol/L Chloride (98-107) mmol/L Carbon Dioxide (22-30) mmol/L Anion Gap mmol/L BUN (9-20) mg/dL Creatinine (0.66-1.25) mg/dL Est GFR (CKD-EPI)AfAm (>60 ml/min/1.73 sqM) Est GFR (CKD-EPI)NonAf (>60 ml/min/1.73 sqM) Glucose (74-99) mg/dL Calcium (8.4-10.2) mg/dL Magnesium (1.6-2.3) mg/dL Total Bilirubin (0.2-1.3) mg/dL AST (17-59) U/L ALT (21-72) U/L Alkaline Phosphatase (38-126) U/L Troponin I <0.012 (0.000-0.034) ng/mL NT-Pro-B Natriuret Pep pg/mL Total Protein (6.3-8.2) g/dL Albumin (3.5-5.0) g/dL Disposition Clinical Impression: Wheezing Disposition: HOME SELF-CARE Instructions (If sedation given, give patient instructions): Bronchospasm (ED) Is patient prescribed a controlled substance at d/c from ED?: No Referrals: Shubham Stephenson MD [Primary Care Provider] - 1-2 days
[2018-12-09 03:40] VITALS: BP 105/69; PULSE 55; RESP 23
[2018-12-09 03:50] VITALS: TEMP 98.2
--- NOTE | 2018-12-09 06:58 | XR ---
EXAMINATION TYPE: XR chest 2V DATE OF EXAM: 12/09/2018 COMPARISON: 11/17/2018 HISTORY: Shortness of breath TECHNIQUE: Frontal and lateral views of the chest are obtained. FINDINGS: Scattered senescent parenchymal changes noted. Hyperinflation compatible with COPD. Increased patchy density at the lung bases may reflect developing infiltrate. Correlate clinically an d progress studies are recommended. There is also pulmonary venous congestion. Heart size is stable. Mediastinal structures are stable and grossly unremarkable. No evidence for hilar prominence. Degenerative changes dorsal spine. IMPRESSION: 1. Increased patchy density at the lung bases may reflect developing infiltrate. Correlate clinically and progress studies are recommended. There is also pulmonary venous congestion.
== END 2018-12-09 03:48 | disposition home or self-care (01) ==
LOC: EC 00:06
DX: R06.2 Wheezing (principal); R06.02 Shortness of breath; R04.2 Hemoptysis; I48.91 Unspecified atrial fibrillation; I11.0 Hypertensive heart disease with heart failure; I50.9 Heart failure, unspecified; I25.2 Old myocardial infarction; G47.31 Primary central sleep apnea; G47.33 Obstructive sleep apnea (adult) (pediatric); Z79.899 Other long term (current) drug therapy; Z86.79 Personal history of other diseases of the circulatory system; Z95.810 Presence of automatic (implantable) cardiac defibrillator; Z99.89 Dependence on other enabling machines and devices; Z82.5 Family history of asthma and other chronic lower respiratory diseases
CPT/HCPCS: 36415; 71046; 80053; 83735; 83880; 84484; 85025; 85610; 85730; 93005; 94640; 99285

== ENCOUNTER 2021-02-27 09:19 | Day surgery (SDC) | payer BC ==
[2021-02-26 09:17] VITALS: BMI 27.3
[~2021-02-27 09:19] MED LIST changes: -ATROPINE SULFATE 0.4 MG/ML 1 ML VIAL IM ONE; +LIDOCAINE 1% (10MG/ML) FOR IV START INTRADERMA PRN; -LIDOCAINE 1% 20 ML VIAL (10MG/ML) FOR IV START INTRADERMA PRN; -LIDOCAINE HCL/PF 20 MG/ML ML INHALATION ONE; -LIDOCAINE VISCOUS 2% 15 ML CUP MUCOUS MEM ONE; -SODIUM CHLORIDE 0.9% 1,000 ML IV SCH
[2021-02-27 09:49] VITALS: RESP 16; TEMP 97.2
[2021-02-27] MEDS ORDERED: MIDAZOLAM 2 MG/2 ML VIAL ONE (10:30)
[2021-02-27] MEDS ORDERED: fentaNYL (PF) 50 MCG/ML 2 ML AMP ONE (10:30)
[2021-02-27] MEDS ORDERED: PROPOFOL 10 MG/ML 20 ML VIAL IV ONE (10:30)
--- NOTE | 2021-02-27 10:35 | P.GSHP ---
History of Present Illness H&P Date: 02/27/21 Chief Complaint: Rectal bleeding 60-year-old male here today for colonoscopy. Has intermittent episodes of rectal bleeding. 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 Mild discomfort at times. Past Medical History Past Medical History: Asthma, Heart Failure, Hypertension, Sleep Apnea/CPAP/BIPAP, Thyroid Disorder Additional Past Medical History / Comment(s): Cardiomyopathy with an ejection fraction of 20-25% which improved upon subsequent echocardiograms, previous v- fib cardiac arrest Aug 2018, previous history of atrial fibrillation, sleep apnea a combination of obstructive and central with an AHI of 30, acid reflux , PVCs, treated for TB as a child,use bipap History of Any Multi-Drug Resistant Organisms: None Reported Past Surgical History: AICD, Appendectomy, Orthopedic Surgery Additional Past Surgical History / Comment(s): Arthroscopy on R knee medial me niscus, colonoscopy, external rectal fistulectomy in 1991, history of AICD placement Past Anesthesia/Blood Transfusion Reactions: No Reported Reaction Additional Past Anesthesia/Blood Transfusion Reaction / Comment(s): no hx blood transfusion Type of Cardiac Device: AICD Device Placement Date:: 2017 Smoking Status: Never smoker - Past Family History Father Family Medical History: Cancer Additional Family Medical History / Comment(s): Father at the age of 39 yrs from bone cancer. Mother Family Medical History: COPD Additional Family Medical History / Comment(s): Mother has heart valve issues. Medications and Allergies Home Medications Medication Instructions Recorded Confirmed Type Spironolactone 25 mg PO DAILY #30 tablet 09/18/18 02/26/21 Rx Atorvastatin [Lipitor] 10 mg PO Q3D 02/26/21 02/26/21 History Bisoprolol Fumarate [Zebeta] 10 mg PO QAM 02/26/21 02/26/21 History Budesonide/Formoterol Fumarate 1 puff INHALATION BID 02/26/21 02/26/21 History [Symbicort 160-4.5 Mcg Inhaler] Furosemide [Lasix] 40 mg PO Q2D 02/26/21 02/26/21 History Levothyroxine Sodium [Synthroid] 25 mcg PO QAM 02/26/21 02/26/21 History Montelukast Sodium [Singulair] 10 mg PO HS 02/26/21 02/26/21 History Sacubitril/Valsartan [Entresto 24 1 each PO BID 02/26/21 02/26/21 History mg-26 mg Tablet] Allergies Allergy/AdvReac Type Severity Reaction Status Date / Time No Known Allergies Allergy Verified 02/27/21 09:47 Surgical - Exam Vital Signs Temp Pulse Resp BP Pulse Ox 97.2 F L 78 16 106/71 97 02/27/21 09:48 02/27/21 09:48 02/27/21 09:48 02/27/21 09:48 02/27/21 09:48 Physical exam: General: Well-developed, well-nourished HEENT: Normocephalic, sclerae nonicteric Abdomen: Nontender, nondistended Extremities: No edema Neuro: Alert and oriented Assessment and Plan (1) Rectal bleeding Narrative/Plan: Will proceed with colonoscopy Current Visit: Yes Status: Acute Code(s): K62.5 - HEMORRHAGE OF ANUS AND RECTUM SNOMED Code(s): 54582212
--- NOTE | 2021-02-27 10:47 | P.PCN ---
Date of Procedure: 02/27/21 Procedure(s) Performed: PREOPERATIVE DIAGNOSIS: Rectal bleeding POSTOPERATIVE DIAGNOSIS: Normal exam PROCEDURE: Colonoscopy ANESTHESIA: MAC SURGEON: Ant Lucas M.D. SPECIMENS: None ENDOSCOPIC PROCEDURE: The patient was placed on the endoscopy table in the left decubitus position. The Olympus colonoscope was inserted into the anus and passed under direct visualization to the base of the cecum. The appendiceal orifice was visualized. From that point the scope was slowly withdrawn inspecting all surfaces carefully. There were no neoplastic inflammatory or polypoid lesions throughout the cecum, ascending, transverse, descending, sigmoid and rectum. There was no visible diverticulosis noted. On digital rectal examination there was noted to be mild induration on the left with no visible fistula or abscess. I was not able to visualize a fissure either. Small internal and external hemorrhoids noted. The patient was taken to the recovery room in stable condition per anesthesia guidelines. RECOMMENDATIONS: Resume diet. Follow-up colonoscopy 10 years.
[2021-02-27 11:11] VITALS: BP 97/64; PULSE 52
== END 2021-02-27 11:32 | disposition home or self-care (01) ==
LOC: ORWHC2ENDO 09:19
PROVIDERS: ATTEND Surgery
DX: K64.8 Other hemorrhoids (principal); K64.4 Residual hemorrhoidal skin tags; K62.5 Hemorrhage of anus and rectum; I11.0 Hypertensive heart disease with heart failure; I50.9 Heart failure, unspecified; G47.33 Obstructive sleep apnea (adult) (pediatric); E03.9 Hypothyroidism, unspecified; I42.9 Cardiomyopathy, unspecified; I48.91 Unspecified atrial fibrillation; J45.909 Unspecified asthma, uncomplicated; Z86.74 Personal history of sudden cardiac arrest; Z95.810 Presence of automatic (implantable) cardiac defibrillator; Z90.89 Acquired absence of other organs; Z98.890 Other specified postprocedural states; Z80.8 Family history of malignant neoplasm of other organs or systems; Z83.6 Family history of other diseases of the respiratory system; Z82.49 Family history of ischemic heart disease and other diseases of the circulatory system; Z79.890 Hormone replacement therapy; Z79.51 Long term (current) use of inhaled steroids; Z79.899 Other long term (current) drug therapy
CPT/HCPCS: 45378; J2250; J3010; J2704

== ENCOUNTER → 2021-03-14 | Outpatient (CLI) | payer BC ==
--- NOTE | 2021-03-14 11:23 | US ---
EXAMINATION TYPE: US venous doppler duplex LE RT DATE OF EXAM: 03/14/2021 10:51 AM COMPARISON: NONE CLINICAL HISTORY: R22.41 Localized swelling, mass and lump, right. SIDE PERFORMED: Right TECHNIQUE: The lower extremity deep venous system is examined utilizing real time linear array sonog lynn with graded compression, doppler sonography and color-flow sonography. VESSELS IMAGED: Common Femoral Vein Deep Femoral Vein Greater Saphenous Vein * Femoral Vein Popliteal Vein Proximal Calf Veins (* superficial vessels) Right Leg: Negative for DVT IMPRESSION: No definite sonographic evidence for right lower extremity deep vein thrombosis.
== END | disposition home or self-care (01) ==
LOC: RADUSWWP 10:28
PROVIDERS: ATTEND Internal Medicine Critical Care Medicine
DX: R22.41 Localized swelling, mass and lump, right lower limb (principal)

== ENCOUNTER → 2021-06-20 | Outpatient (CLI) | payer BC ==
[2021-06-21 04:47] LABS: Anion Gap 10.7 mmol/L (4.00-12.00); BUN/Creat Ratio 20.75 Ratio (12.00-20.00); Blood Urea Nitrogen 20.4 mg/dL (9.0-27.0); Calcium 9.2 mg/dL (8.7-10.3)
== END | disposition home or self-care (01) ==
LOC: LABWHC1 07:06
PROVIDERS: ATTEND Internal Medicine
DX: I10 Essential (primary) hypertension (principal); I25.10 Atherosclerotic heart disease of native coronary artery without angina pectoris; I42.8 Other cardiomyopathies; I50.22 Chronic systolic (congestive) heart failure
CPT/HCPCS: 36415; 80048; 83880

== ENCOUNTER → 2021-07-17 | Outpatient (CLI) | payer BC ==
[2021-07-17 16:07] LABS: African American GFR (CKD) 76.2 (60.0-200.0); Anion Gap 10.6 mmol/L (4.00-12.00); BUN/Creat Ratio 18.9 Ratio (12.00-20.00); Blood Urea Nitrogen 22.3 mg/dL (9.0-27.0); Calcium 9.2 mg/dL (8.7-10.3); Carbon Dioxide 22.3 mmol/L (21.6-31.8); Non-African American GFR(CKD) 65.7 (60.0-200.0); Potassium 4.8 mmol/L (3.5-5.5)
== END | disposition home or self-care (01) ==
LOC: LABWHC1 07:41
PROVIDERS: ATTEND Internal Medicine
DX: I11.0 Hypertensive heart disease with heart failure (principal); I50.22 Chronic systolic (congestive) heart failure; I42.8 Other cardiomyopathies; I25.10 Atherosclerotic heart disease of native coronary artery without angina pectoris
CPT/HCPCS: 36415; 80048; 83880

== ENCOUNTER → 2021-08-08 | Outpatient (CLI) | payer BC ==
[2021-08-08 17:41] LABS: Chol/HDL Ratio 3.04 Ratio; LDL Cholesterol,Calculated 104.6 mg/dL (0.0-131.0); VLDL Calculation 18.76 mg/dL (5.00-40.00)
[2021-08-08 18:11] LABS: ALT 16 U/L (10-49); AST 20 U/L (14-35); African American GFR (CKD) 82.9 (60.0-200.0); Albumin 4.4 g/dL (3.8-4.9); Alkaline Phosphatase 58 U/L (41-126); BUN/Creat Ratio 14.64 Ratio (12.00-20.00); Blood Urea Nitrogen 16.1 mg/dL (9.0-27.0); Calcium 9.3 mg/dL (8.7-10.3); Carbon Dioxide 22.6 mmol/L (21.6-31.8); Chloride 97 mmol/L (96-109); Globulin 2.1 g/dL (1.6-3.3); Glucose 101 mg/dL (70-110); Non-African American GFR(CKD) 71.6 (60.0-200.0); Potassium 4.8 mmol/L (3.5-5.5); Sodium 133 mmol/L (135-145); Total Protein 6.5 g/dL (6.2-8.2)
[2021-08-09 12:37] LABS: Microalbumin Creatinine Ratio <30 mg/g Creat (0-30)
== END | disposition home or self-care (01) ==
LOC: LABWHC1 08:18
PROVIDERS: ATTEND Internal Medicine
DX: I11.0 Hypertensive heart disease with heart failure (principal); I25.10 Atherosclerotic heart disease of native coronary artery without angina pectoris; I50.22 Chronic systolic (congestive) heart failure; I42.8 Other cardiomyopathies
CPT/HCPCS: 36415; 80053; 80061; 82043; 82570; 83036; 83880; 84443

== ENCOUNTER → 2021-08-31 | Outpatient (CLI) | payer BC ==
[2021-08-31 12:23] LABS: African American GFR (CKD) 65.3 (60.0-200.0); Anion Gap 12.4 mmol/L (10.00-18.00); BUN/Creat Ratio 13.13 Ratio (12.00-20.00); Blood Urea Nitrogen 17.6 mg/dL (9.0-27.0); Calcium 9.7 mg/dL (8.7-10.3); Carbon Dioxide 24.4 mmol/L (20.0-27.5); Non-African American GFR(CKD) 56.4 (60.0-200.0); Potassium 5.4 mmol/L (3.5-5.5)
== END | disposition home or self-care (01) ==
LOC: LABWHC1 07:29
PROVIDERS: ATTEND Physician Assistant
DX: I11.0 Hypertensive heart disease with heart failure (principal); I50.22 Chronic systolic (congestive) heart failure; I42.8 Other cardiomyopathies; I25.10 Atherosclerotic heart disease of native coronary artery without angina pectoris
CPT/HCPCS: 36415; 80048; 83880

== ENCOUNTER → 2021-09-10 | Outpatient (CLI) | payer BC ==
[2021-09-10 11:42] LABS: African American GFR (CKD) 69.1 (60.0-200.0); Anion Gap 12.7 mmol/L (10.00-18.00); BUN/Creat Ratio 13.75 Ratio (12.00-20.00); Blood Urea Nitrogen 17.6 mg/dL (9.0-27.0); Calcium 9.6 mg/dL (8.7-10.3); Carbon Dioxide 24.1 mmol/L (20.0-27.5); Non-African American GFR(CKD) 59.6 (60.0-200.0); Potassium 4.3 mmol/L (3.5-5.5)
== END | disposition home or self-care (01) ==
LOC: LABWHC1 07:33
PROVIDERS: ATTEND Physician Assistant
DX: I11.0 Hypertensive heart disease with heart failure (principal); I50.22 Chronic systolic (congestive) heart failure; I42.8 Other cardiomyopathies; I25.10 Atherosclerotic heart disease of native coronary artery without angina pectoris
CPT/HCPCS: 36415; 80048; 83880

== ENCOUNTER → 2021-12-31 | Outpatient (CLI) | payer BC ==
[2021-12-31 14:43] LABS: Basophils # (A) 0.06 X 10*3/uL (0.00-0.10); Basophils % (A) 0.7 %; Eosinophils # (A) 0.09 X 10*3/uL (0.04-0.35); Eosinophils % (A) 1.1 %; HCT 46.9 % (39.6-50.0); HGB 14.6 g/dL (13.0-17.0); Immature Grans, Automated 0.5 %; MCH 29.6 pg (27.0-32.0); MCHC 31.1 g/dL (32.0-37.0); MCV 95.1 fL (80.0-97.0); Mean Platelet Volume 11.8 fL (9.5-12.2); Monocytes # (A) 0.82 X 10*3/uL (0.20-1.00); Monocytes % (A) 9.9 %; NRBC Per 100 WBC 0 /100 WBCS (0.0-0.0); Neutrophils # (A) 5.34 X 10*3/uL (1.80-7.70); Neutrophils % (A) 64.8 %; Platelet Count 221 X 10*3/uL (140-440); RBC 4.93 X 10*6/uL (4.40-5.60); RDW 13.4 % (11.5-14.5); WBC 8.25 X 10*3/uL (4.50-10.00)
[2021-12-31 15:32] LABS: Chol/HDL Ratio 3.59 Ratio; LDL Cholesterol,Calculated 86.2 mg/dL (0.0-131.0); VLDL Calculation 18.36 mg/dL (5.00-40.00)
[2021-12-31 15:40] LABS: ALT 13 U/L (10-49); AST 19 U/L (14-35); African American GFR (CKD) 69.9 (60.0-200.0); Albumin 4.2 g/dL (3.8-4.9); Albumin/Globulin Ratio 1.55 (1.60-3.17); Alkaline Phosphatase 69 U/L (41-126); BUN/Creat Ratio 13.57 Ratio (12.00-20.00); Blood Urea Nitrogen 17.1 mg/dL (9.0-27.0); Calcium 9.6 mg/dL (8.7-10.3); Carbon Dioxide 21.8 mmol/L (20.0-27.5); Chloride 101 mmol/L (96-109); Globulin 2.7 g/dL (1.6-3.3); Glucose 98 mg/dL (70-110); Non-African American GFR(CKD) 60.3 (60.0-200.0); Sodium 134 mmol/L (135-145); Total Protein 6.9 g/dL (6.2-8.2)
[2021-12-31 18:28] LABS: Microalbumin Creatinine Ratio <30 mg/g Creat (0-30)
== END | disposition home or self-care (01) ==
LOC: LABWHC1 09:16
PROVIDERS: ATTEND Internal Medicine Endocrinology, Diabetes & Metabolism
DX: I50.22 Chronic systolic (congestive) heart failure (principal); E03.8 Other specified hypothyroidism
CPT/HCPCS: 36415; 80053; 80061; 82043; 82570; 83036; 83880; 84443; 85025

== ENCOUNTER 2022-02-03 16:42 | Emergency (ER) | payer BC ==
[2022-02-03 17:01] VITALS: TEMP 98.8
[2022-02-03] MEDS ORDERED: IPRATROPIUM-ALBUTEROL 3 ML NEB INHALATION STA ×2 (17:11→19:21)
[2022-02-03] MEDS ORDERED: methylPREDNISolone SOD SUCCI 125 MG/2 ML VIAL IV STA (17:11)
--- NOTE | 2022-02-03 17:13 | ED ---
General Adult HPI - General Chief complaint: Shortness of Breath Stated complaint: THUY Time Seen by Provider: 02/03/22 17:04 Source: patient, RN notes reviewed Mode of arrival: ambulatory Limitations: no limitations - History of Present Illness Initial comments: Patient is a pleasant 61-year-old male presenting to the emergency Department with cough and dyspnea. Symptoms present for 8 weeks. Patient has history of severe heart failure and asthma. Patient does have cough with sputum. Patient did have COVID-19 symptoms and diagnosed +1 week ago. Patient feels he is better with that however still having dyspnea is similar to previous asthma. No leg pain or leg swelling. No fevers. Patient uses inhaler without much improvement. - Related Data Home Medications Medication Instructions Recorded Confirmed Atorvastatin [Lipitor] 10 mg PO Q3D 02/26/21 02/26/21 Bisoprolol Fumarate [Zebeta] 10 mg PO QAM 02/26/21 02/26/21 Budesonide/Formoterol Fumarate 1 puff INHALATION BID 02/26/21 02/26/21 [Symbicort 160-4.5 Mcg Inhaler] Furosemide [Lasix] 40 mg PO Q2D 02/26/21 02/26/21 Levothyroxine Sodium [Synthroid] 25 mcg PO QAM 02/26/21 02/26/21 Montelukast Sodium [Singulair] 10 mg PO HS 02/26/21 02/26/21 Sacubitril/Valsartan [Entresto 24 1 each PO BID 02/26/21 02/26/21 mg-26 mg Tablet] Previous Rx's Medication Instructions Recorded Spironolactone 25 mg PO DAILY #30 tablet 09/18/18 Azithromycin [Zithromax Z-pack (6 250 mg PO DIRECTED #6 tab 02/03/22 tabs)] predniSONE [Deltasone] 20 mg PO BID #8 tab 02/03/22 Allergies Allergy/AdvReac Type Severity Reaction Status Date / Time No Known Allergies Allergy Verified 02/03/22 17:01 Review of Systems ROS Statement: Those systems with pertinent positive or pertinent negative responses have been documented in the HPI. ROS Other: All systems not noted in ROS Statement are negative. Constitutional: Denies: fever Eyes: Denies: eye pain ENT: Denies: ear pain Respiratory: Reports: as per HPI, cough, dyspnea Cardiovascular: Denies: chest pain Endocrine: Denies: fatigue Gastrointestinal: Denies: abdominal pain Genitourinary: Denies: dysuria Musculoskeletal: Denies: back pain Skin: Denies: rash Neurological: Denies: weakness Past Medical History Past Medical History: Asthma, Heart Failure, Hypertension, Sleep Apnea/CPAP/BIPAP, Thyroid Disorder Additional Past Medical History / Comment(s): Cardiomyopathy with an ejection fraction of 20-25% which improved upon subsequent echocardiograms, previous v- fib cardiac arrest Aug 2018, previous history of atrial fibrillation, sleep apnea a combination of obstructive and central with an AHI of 30, acid reflux , PVCs, treated for TB as a child,use bipap History of Any Multi-Drug Resistant Organisms: None Reported Past Surgical History: AICD, Appendectomy, Orthopedic Surgery Additional Past Surgical History / Comment(s): Arthroscopy on R knee medial meniscus, colonoscopy, external rectal fistulectomy in 1991, history of AICD placement Past Anesthesia/Blood Transfusion Reactions: No Reported Reaction Additional Past Anesthesia/Blood Transfusion Reaction / Comment(s): no hx blood transfusion Type of Cardiac Device: AICD Device Placement Date:: 2017 Past Psychological History: No Psychological Hx Reported Smoking Status: Never smoker Past Alcohol Use History: None Reported Past Drug Use History: None Reported - Past Family History Father Family Medical History: Cancer Additional Family Medical History / Comment(s): Father at the age of 39 yrs from bone cancer. Mother Family Medical History: COPD Additional Family Medical History / Comment(s): Mother has heart valve issues. General Exam Limitations: no limitations General appearance: alert, in no apparent distress Head exam: Present: normocephalic Eye exam: Present: normal appearance Neck exam: Present: normal inspection Respiratory exam: Present: wheezes Cardiovascular Exam: Present: regular rate, normal rhythm GI/Abdominal exam: Present: soft. Absent: tenderness Extremities exam: Present: normal inspection. Absent: pedal edema, calf tenderness Neurological exam: Present: alert Psychiatric exam: Present: normal affect, normal mood Skin exam: Present: normal color Course Vital Signs 02/03/22 02/03/22 02/03/22 16:57 17:24 17:36 Temperature 98.8 F Pulse Rate 39 L 66 68 Respiratory 22 18 18 Rate Blood Pressure 101/73 O2 Sat by Pulse 98 Oximetry 02/03/22 02/03/22 18:35 18:39 Temperature Pulse Rate 72 Respiratory 20 22 Rate Blood Pressure 102/81 O2 Sat by Pulse 99 Oximetry EKG Findings - EKG Comments: EKG Findings:: Sinus rhythm with a rate of 68. SD 203, first degree AV block. QRS 113. QT 406. QTc 424. Normal axis. Lateral T wave inversion. Normal QRS. PVCs present. Medical Decision Making - Medical Decision Making Patient reevaluated and resting comfortably in bed. Lung sounds have improved however still has some wheezing. Patient is receptive to second nebulizer treatment and is comfortable with discharge home. - Lab Data Result diagrams: 02/03/22 17:31 02/03/22 17:31 Lab Results 02/03/22 02/03/22 02/03/22 Range/Units 17:31 17:31 17:31 WBC 14.1 H (3.8-10.6) k/uL RBC 5.12 (4.30-5.90) m/uL Hgb 15.3 (13.0-17.5) gm/dL Hct 46.9 (39.0-53.0) % MCV 91.8 (80.0-100.0) fL MCH 29.9 (25.0-35.0) pg MCHC 32.6 (31.0-37.0) g/dL RDW 13.5 (11.5-15.5) % Plt Count 226 (150-450) k/uL MPV 8.3 Neutrophils % 84 % Lymphocytes % 10 % Monocytes % 5 % Eosinophils % 1 % Basophils % 0 % Neutrophils # 11.8 H (1.3-7.7) k/uL Lymphocytes # 1.4 (1.0-4.8) k/uL Monocytes # 0.6 (0-1.0) k/uL Eosinophils # 0.1 (0-0.7) k/uL Basophils # 0.0 (0-0.2) k/uL PT 10.9 (9.0-12.0) sec INR 1.0 (<1.2) APTT 23.2 (22.0-30.0) sec Sodium 133 L (137-145) mmol/L Potassium 3.9 (3.5-5.1) mmol/L Chloride 101 (98-107) mmol/L Carbon Dioxide 22 (22-30) mmol/L Anion Gap 10 mmol/L BUN 24 H (9-20) mg/dL Creatinine 1.28 H (0.66-1.25) mg/dL Est GFR (CKD-EPI)AfAm 69 (>60 ml/min/1.73 sqM) Est GFR (CKD-EPI)NonAf 59 (>60 ml/min/1.73 sqM) Glucose 117 H (74-99) mg/dL Plasma Lactic Acid Norm (0.7-2.0) mmol/L Calcium 9.1 (8.4-10.2) mg/dL Total Bilirubin 0.7 (0.2-1.3) mg/dL AST 24 (17-59) U/L ALT 22 (4-49) U/L Alkaline Phosphatase 86 (38-126) U/L NT-Pro-B Natriuret Pep pg/mL Total Protein 7.6 (6.3-8.2) g/dL Albumin 4.5 (3.5-5.0) g/dL 02/03/22 02/03/22 Range/Units 17:31 17:31 WBC (3.8-10.6) k/uL RBC (4.30-5.90) m/uL Hgb (13.0-17.5) gm/dL Hct (39.0-53.0) % MCV (80.0-100.0) fL MCH (25.0-35.0) pg MCHC (31.0-37.0) g/dL RDW (11.5-15.5) % Plt Count (150-450) k/uL MPV Neutrophils % % Lymphocytes % % Monocytes % % Eosinophils % % Basophils % % Neutrophils # (1.3-7.7) k/uL Lymphocytes # (1.0-4.8) k/uL Monocytes # (0-1.0) k/uL Eosinophils # (0-0.7) k/uL Basophils # (0-0.2) k/uL PT (9.0-12.0) sec INR (<1.2) APTT (22.0-30.0) sec Sodium (137-145) mmol/L Potassium (3.5-5.1) mmol/L Chloride (98-107) mmol/L Carbon Dioxide (22-30) mmol/L Anion Gap mmol/L BUN (9-20) mg/dL Creatinine (0.66-1.25) mg/dL Est GFR (CKD-EPI)AfAm (>60 ml/min/1.73 sqM) Est GFR (CKD-EPI)NonAf (>60 ml/min/1.73 sqM) Glucose (74-99) mg/dL Plasma Lactic Acid Norm 1.3 (0.7-2.0) mmol/L Calcium (8.4-10.2) mg/dL Total Bilirubin (0.2-1.3) mg/dL AST (17-59) U/L ALT (4-49) U/L Alkaline Phosphatase (38-126) U/L NT-Pro-B Natriuret Pep 3140 pg/mL Total Protein (6.3-8.2) g/dL Albumin (3.5-5.0) g/dL - Radiology Data Radiology results: image reviewed (Chest x-ray shows no acute process) Disposition Clinical Impression: Asthma with acute exacerbation Disposition: HOME SELF-CARE Condition: Stable Instructions (If sedation given, give patient instructions): Asthma (ED) Additional Instructions: Please do follow-up with your primary care physician in the next day or 2 for recheck. Return for fevers, difficulty breathing, worsening or changing symptoms or other concerns. Prescription has been sent to pharmacy. Prescriptions: predniSONE [Deltasone] 20 mg PO BID #8 tab Azithromycin [Zithromax Z-pack (6 tabs)] 250 mg PO DIRECTED #6 tab Is patient prescribed a controlled substance at d/c from ED?: No Referrals: Abisai Timmons DO [Primary Care Provider] - 1-2 days Time of Disposition: 19:23
[2022-02-03 17:40] LABS: Basophils % (A) 0 %; Eosinophils # (A) 0.1 k/uL (0-0.7); Eosinophils % (A) 1 %; HCT 46.9 % (39.0-53.0); HGB 15.3 gm/dL (13.0-17.5); Lymphocytes # (A) 1.4 k/uL (1.0-4.8); Lymphocytes % (A) 10 %; MCH 29.9 pg (25.0-35.0); MCHC 32.6 g/dL (31.0-37.0); MCV 91.8 fL (80.0-100.0); Mean Platelet Volume 8.3; Monocytes # (A) 0.6 k/uL (0-1.0); Monocytes % (A) 5 %; Neutrophils # (A) 11.8 k/uL (1.3-7.7); Neutrophils % (A) 84 %; Platelet Count 226 k/uL (150-450); RBC 5.12 m/uL (4.30-5.90); RDW 13.5 % (11.5-15.5); WBC 14.1 k/uL (3.8-10.6)
[2022-02-03 17:55] LABS: Albumin 4.5 g/dL (3.5-5.0); Calcium 9.1 mg/dL (8.4-10.2); Potassium 3.9 mmol/L (3.5-5.1); Total Bilirubin 0.7 mg/dL (0.2-1.3); Total Protein 7.6 g/dL (6.3-8.2)
[2022-02-03 17:56] LABS: Partial Thromboplastin Time 23.2 sec (22.0-30.0); Prothrombin Time 10.9 sec (9.0-12.0)
--- NOTE | 2022-02-03 19:14 | XR ---
EXAMINATION TYPE: XR chest 2V DATE OF EXAM: 02/03/2022 COMPARISON: 12/09/2018 HISTORY: Short of breath TECHNIQUE: 2 views FINDINGS: There is no heart failure nor confluent pneumonic infiltrate. There is left axillary pacema ker. Costophrenic angles are clear. There are no hilar masses. There are chest leads. IMPRESSION: No active cardiopulmonary disease. There is clearing of the pulmonary edema compared to t he old exam.
[2022-02-03 20:15] VITALS: BP 106/59
[2022-02-03 20:16] VITALS: RESP 16
[2022-02-03 20:21] VITALS: PULSE 66
== END 2022-02-03 20:29 | disposition home or self-care (01) ==
LOC: EC 16:42
DX: J45.901 Unspecified asthma with (acute) exacerbation (principal); E07.9 Disorder of thyroid, unspecified; I11.0 Hypertensive heart disease with heart failure; I42.9 Cardiomyopathy, unspecified; I48.91 Unspecified atrial fibrillation; I50.9 Heart failure, unspecified; Z95.810 Presence of automatic (implantable) cardiac defibrillator; Z79.890 Hormone replacement therapy; Z79.51 Long term (current) use of inhaled steroids; Z79.899 Other long term (current) drug therapy
CPT/HCPCS: 36415; 94640 ×2; 93005; 83880; 80053; 83605; 85025; 85610; 85730; 71046; 99285; 96374; J2930

== ENCOUNTER → 2022-02-21 | Outpatient (CLI) | payer BC ==
[2022-02-21 11:09] LABS: African American GFR (CKD) 77.2 (60.0-200.0); Anion Gap 8.8 mmol/L (10.00-18.00); BUN/Creat Ratio 20.69 Ratio (12.00-20.00); Carbon Dioxide 26.9 mmol/L (20.0-27.5); Non-African American GFR(CKD) 66.7 (60.0-200.0); Potassium 4.5 mmol/L (3.5-5.5)
== END | disposition home or self-care (01) ==
LOC: LABWHC1 07:25
PROVIDERS: ATTEND Internal Medicine
DX: I50.22 Chronic systolic (congestive) heart failure (principal)
CPT/HCPCS: 36415; 80048; 83880

== ENCOUNTER → 2022-06-13 | Outpatient (CLI) | payer BC ==
--- NOTE | 2022-06-13 08:10 | CT ---
EXAMINATION TYPE: CT lumbar spine wo con CT DLP: 741.50 mGycm, Automated exposure control for dose reduction was used. DATE OF EXAM: 06/13/2022 6:48 AM COMPARISON: None. CLINICAL INDICATION:Male, 61 years old with history of M54.16 RADICULOPATHY, LUMBAR REGION, Radiculop athy, Lumbar region TECHNIQUE: Multiple axial images were obtained from the midportion of T11 through the sacroiliac claribel nts. Soft tissue and bone windows in coronal and sagittal planes were obtained and reviewed. FINDINGS: Alignment: There are 5 lumbar type vertebral bodies. Mild levoscoliosis apex L3. Bone: Multilevel disc degeneration changes minimal osteophyte formation noted. There is grossly maint ained this height and vertebral body disc heights. Facet joint arthropathy is seen throughout the spi ne. Discs: T12-L1: No spinal canal or neural foraminal stenosis is identified. L1-L2: No spinal canal or neural foraminal stenosis is identified. L2-L3: Disc bulge and facet joint arthropathy with mild spinal canal stenosis. The Neural foramen are patent. L3-L4: Disc bulge and facet joint arthropathy with mild spinal canal stenosis. The Neural foramen are patent. L4-L5: Disc bulge and facet arthropathy with moderate spinal canal stenosis. The neural foramen are patent. L5-S1: No spinal canal or neural foraminal stenosis is identified. Other: None IMPRESSION: 1. No evidence of fracture of the lumbar spine. 2. Mild multilevel disc degeneration changes. No significant spinal canal or neural foraminal stenosi s.
== END | disposition home or self-care (01) ==
LOC: RADCTMAIN 06:27
PROVIDERS: ATTEND Psychiatry & Neurology Neurology
DX: M51.16 Intervertebral disc disorders with radiculopathy, lumbar region (principal)
CPT/HCPCS: 72131

== ENCOUNTER 2023-03-01 09:50 | Emergency (ER) | payer BC ==
[2023-03-01 10:00] VITALS: TEMP 98.3
--- NOTE | 2023-03-01 10:19 | ED ---
General Adult HPI - General Chief complaint: Shortness of Breath Stated complaint: severe asthma Time Seen by Provider: 03/01/23 10:00 Source: patient, RN notes reviewed, old records reviewed Mode of arrival: ambulatory Limitations: no limitations - History of Present Illness Initial comments: This is a 62-year-old male who states he has severe asthma and cardiomyopathy with some congestive heart failure. Patient states he is getting some symptoms of tightness like he typically gets when he has an exacerbation of his asthma. Patient states he wants to get out of bed because when he progresses it to be quite severe. Patient states he just started coughing today but no sputum production. Patient denies any fever chills. Patient denies any swelling of the legs. 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 Patient denies any chest pain or any palpitations. Patient denies any lightheadedness or dizziness. Patient isn't swelling to legs or tenderness of the calves. - Related Data Home Medications Medication Instructions Recorded Confirmed Atorvastatin [Lipitor] 10 mg PO Q3D 02/26/21 02/26/21 Bisoprolol Fumarate [Zebeta] 10 mg PO QAM 02/26/21 02/26/21 Budesonide/Formoterol Fumarate 1 puff INHALATION BID 02/26/21 02/26/21 [Symbicort 160-4.5 Mcg Inhaler] Furosemide [Lasix] 40 mg PO Q2D 02/26/21 02/26/21 Levothyroxine Sodium [Synthroid] 25 mcg PO QAM 02/26/21 02/26/21 Montelukast Sodium [Singulair] 10 mg PO HS 02/26/21 02/26/21 Sacubitril/Valsartan [Entresto 24 1 each PO BID 02/26/21 02/26/21 mg-26 mg Tablet] Previous Rx's Medication Instructions Recorded Spironolactone 25 mg PO DAILY #30 tablet 09/18/18 Azithromycin [Zithromax Z-pack (6 250 mg PO DIRECTED #6 tab 02/03/22 tabs)] predniSONE [Deltasone] 20 mg PO BID #8 tab 02/03/22 predniSONE [Deltasone] 40 mg PO DAILY #8 tab 03/01/23 Allergies Allergy/AdvReac Type Severity Reaction Status Date / Time No Known Allergies Allergy Verified 03/01/23 10:00 Review of Systems ROS Statement: Those systems with pertinent positive or pertinent negative responses have been documented in the HPI. ROS Other: All systems not noted in ROS Statement are negative. Past Medical History Past Medical History: Asthma, Heart Failure, Hypertension, Sleep Apnea/CPAP/BIPAP, Thyroid Disorder Additional Past Medical History / Comment(s): Cardiomyopathy with an ejection fraction of 20-25% which improved upon subsequent echocardiograms, previous v- fib cardiac arrest Aug 2018, previous history of atrial fibrillation, sleep apnea a combination of obstructive and central with an AHI of 30, acid reflux , PVCs, treated for TB as a child,use bipap History of Any Multi-Drug Resistant Organisms: None Reported Past Surgical History: AICD, Appendectomy, Orthopedic Surgery Additional Past Surgical History / Comment(s): Arthroscopy on R knee medial meniscus, colonoscopy, external rectal fistulectomy in 1991, history of AICD placement Past Anesthesia/Blood Transfusion Reactions: No Reported Reaction Additional Past Anesthesia/Blood Transfusion Reaction / Comment(s): no hx blood transfusion Type of Cardiac Device: AICD Device Placement Date:: 2017 Past Psychological History: No Psychological Hx Reported Smoking Status: Never smoker Past Alcohol Use History: None Reported Past Drug Use History: None Reported - Past Family History Father Family Medical History: Cancer Additional Family Medical History / Comment(s): Father at the age of 39 yrs from bone cancer. Mother Family Medical History: COPD Additional Family Medical History / Comment(s): Mother has heart valve issues. General Exam - General Exam Comments Initial Comments: GENERAL: Patient is well-developed and well-nourished. Patient is nontoxic and well- hydrated and is in mild distress. ENT: Neck is soft and supple. No significant lymphadenopathy is noted. Oropharynx is clear. Moist mucous membranes. Neck has full range of motion without eliciting any pain. EYES: The sclera were anicteric and conjunctiva were pink and moist. Extraocular movements were intact and pupils were equal round and reactive to light. Eyelids were unremarkable. PULMONARY: Unlabored respirations. Good breath sounds bilaterally. Slight crackles b ilateral bases CARDIOVASCULAR: There is a regular rate and rhythm without any murmurs gallops or rubs. ABDOMEN:adriano. There is no palpable pulsatile mass.Soft and nontender with normal bowel sounds. No palpable organomegaly was no SKIN: Skin is clear with no lesions or rashes and otherwise unremarkable. NEUROLOGIC: Patient is alert and oriented x3. Cranial nerves II through XII are grossly intact. Motor and sensory are also intact. Normal speech, volume and content. Symmetrical smile. MUSCULOSKELETAL: Normal extremities with adequate strength and full range of motion. LYMPHATICS: No significant lymphadenopathy is noted PSYCHIATRIC: Normal psychiatric evaluation. Limitations: no limitations Course Vital Signs 03/01/23 09:57 Temperature 98.3 F Pulse Rate 75 Respiratory 20 Rate Blood Pressure 107/69 O2 Sat by Pulse 98 Oximetry Medical Decision Making - Medical Decision Making EKG was interpreted by myself shows sinus rhythm at 69 bpm [place] interval is 207 QRS is 114 QT interval 44 QTC is 424. Patient's EKG shows no ST segment or depression. Was pt. sent in by a medical professional or institution (, PA, [facility], urgent care, hospital, or care home...) When possible be specific @ -No Did you speak to anyone other than the patient for history (EMS, parent, family, police, friend...)? What history was obtained from this source @ -No Did you review nursing and triage notes (agree or disagree)? Why? @ -I reviewed and agree with nursing and triage notes Were old charts reviewed (outside hosp., previous admission, EMS record, old EKG, old radiological studies, urgent care reports/EKG's, care home records)? Report findings @ -I reviewed prior radiological studies Differential Diagnosis (chest pain, altered mental status, abdominal pain women, abdominal pain men, vaginal bleeding, weakness, fever, dyspnea, syncope, headache, dizziness, GI bleed, back pain, seizure, CVA, palpatations, mental health, musculoskeletal)? @ -Differential Dyspnea: Coronary syndrome, arrhythmia, tamponade, asthma, COPD, pulmonary embolism, pneumonia, pneumothorax, pulmonary effusion, anaphylaxis, diabetic ketoacidosis, flailed chest, pulmonary contusion, diaphragmatic rupture, anemia, neuromuscular, this is not meant to be an all-inclusive list. EKG interpreted by me (3pts min.). @ -As above X-rays interpreted by me (1pt min.). @ -Chest x-ray shows some increased vasculature consistent with early pulmonary edema CT interpreted by me (1pt min.). @ -None done U/S interpreted by me (1pt. min.). @ -None done What testing was considered but not performed or refused? (CT, X-rays, U/S, labs)? Why? @ -None What meds were considered but not given or refused? Why? @ -None Did you discuss the management of the patient with other professionals (professionals i.e. , PA, [employer], lab, RT, psych nurse, social media community manager, sheepskin pickler, teacher, catapult and arresting gear officer, disease case manager)? Give summary @ -No Was smoking cessation discussed for >3mins.? @ -No Was critical care preformed (if so, how long)? @ -No Were there social determinants of health that impacted care today? How? (Homelessness, low income, unemployed, alcoholism, drug addiction, transportation, low edu. Level, literacy, decrease access to med. care, snf, rehab)? @ -No Was there de-escalation of care discussed even if they declined (Discuss DNR or withdrawal of care, Hospice)? DNR status @ -No What co-morbidities impacted this encounter? (DM, HTN, Smoking, COPD, CAD, Cancer, CVA, ARF, Chemo, Hep., AIDS, mental health diagnosis, sleep apnea, morbid obesity)? @ -None Was patient admitted / discharged? Hospital course, mention meds given and route, prescriptions, significant lab abnormalities, going to OR and other pertinent info. @ -Patient came in complaining of difficulty breathing. Patient stated he decreased his dose of Lasix from 80 once a day to 80 every other day on Friday. Patient states he believes this however is secondary to his asthma and he believes he is at the beginning of asthma exacerbation is very insistent on getting steroids. I did give the patient a shot of steroids I did tell medical back to his 80 of Lasix every day and he was in agreement with this and he states he'll be speaking with his foreman/pile driving and erection. Undiagnosed new problem with uncertain prognosis? @ -No Drug Therapy requiring intensive monitoring for toxicity (Heparin, Nitro, Insulin, Cardizem)? @ -No Were any procedures done? @ -No Diagnosis/symptom? @ -Asthma Acute, or Chronic, or Acute on Chronic? @ -Acute Uncomplicated (without systemic symptoms) or Complicated (systemic symptoms)? @ -default Side effects of treatment? @ -No Exacerbation, Progression, or Severe Exacerbation? @ -No Poses a threat to life or bodily function? How? (Chest pain, [place], [place], pneumonia, PE, COPD, DKA, ARF, appy, cholecystitis, CVA, Diverticulitis, Homicidal, Suicidal, threat to staff... and all critical care pts) @ -No Disposition Clinical Impression: Asthma exacerbation Disposition: HOME SELF-CARE Condition: Good Instructions (If sedation given, give patient instructions): Asthma (ED) Additional Instructions: Patient should use Lasix 80 mg once a day. Patient should take steroids as prescribed Prescriptions: predniSONE [Deltasone] 40 mg PO DAILY #8 tab Is patient prescribed a controlled substance at d/c from ED?: No Referrals: Davon Zuluaga MD [Primary Care Provider] - 1-2 days Time of Disposition: 11:03
--- NOTE | 2023-03-01 10:45 | XR ---
EXAMINATION TYPE: XR chest 2V DATE OF EXAM: 03/01/2023 COMPARISON: 02/03/2022 HISTORY: 62-year-old male shortness of breath, difficulty breathing, chest pain TECHNIQUE: PA and lateral views FINDINGS: Left anterior chest wall ICD generator) ventricular lead. Heart upper limits of normal in size. Mild perihilar vascular prominence without consolidation or pleural effusion. Dextroconvex scoliosis. IMPRESSION: Borderline heart size. There is some perihilar vascular prominence. Correlate to exclude mild pulmona ry vascular congestion.
[2023-03-01] MEDS ORDERED: methylPREDNISolone SOD SUCCI 125 MG/2 ML VIAL IM ONE (10:49)
[2023-03-01 11:26] VITALS: BP 92/56; PULSE 63; RESP 18
== END 2023-03-01 11:21 | disposition home or self-care (01) ==
LOC: EC 09:50
DX: J45.901 Unspecified asthma with (acute) exacerbation (principal); I11.0 Hypertensive heart disease with heart failure; I50.9 Heart failure, unspecified; I48.91 Unspecified atrial fibrillation; E07.9 Disorder of thyroid, unspecified; K21.9 Gastro-esophageal reflux disease without esophagitis; Z79.51 Long term (current) use of inhaled steroids; Z79.890 Hormone replacement therapy; Z79.899 Other long term (current) drug therapy
CPT/HCPCS: 93005; 71046; 99285; 96372; J2930